=== PATIENT | male | born 1960 | race Caucasian/White ===

== ENCOUNTER → 2023-10-23 | Outpatient (CLI) | payer MEDICAID, OTHER, SELFPAY ==
[2023-10-23 13:02] LABS: Absolute Lymphocyte Count 2.35 X10^3/uL (0.83-4.51); Absolute Neutrophil Count 3.3 X10^3/uL (2.0-7.7); Basophil# 0.04 X10^3/uL; Basophil% 0.6 % (0-1); Eosinophil# 0.15 X10^3/uL; Eosinophils% 2.4 % (0-5); Hematocrit 42.8 % (40-54); Hemoglobin 14.6 g/dL (13.0-16.5); Lymphocyte # 2.35 X10^3/ul (0.83-4.51); Lymphocyte % 37.5 % (19-41); Mean Corp Hgb Conc 34.1 g/dL (32-36); Mean Corpuscular Hgb 30.2 pg (27.0-32.0); Mean Corpuscular Volume 88.4 fL (80-94); Mean Platelet Vol. 10.2 fl (6.2-12.0); Monocyte# 0.45 X10^3/uL; Monocyte% 7.2 % (0-10); NRBC Flagged by Analyzer 0 % (0-5); Neutrophil # 3.25 X10^3/uL (2.7-7.7); Platelet Count 221 K/mm3 (150-450); RBC Distribution Width CV 11.8 % (11.6-14.6); RBC Distribution Width SD 37.8 fl (35.1-43.9); Red Blood Count 4.84 M/mm3 (4.6-6.2); White Blood Count 6.3 K/mm3 (4.4-11.0)
[2023-10-23 13:24] LABS: Hemoglobin A1c 10.1 % (3.8-5.6)
[2023-10-23 13:44] LABS: ALB/GLOB Ratio 0.9 RATIO (0.9-2.4); AST(SGOT) 34 U/L (15-37); Alanine Aminotransfer ALT/SGPT 38 U/L (16-61); Albumin, Serum 3.6 g/dL (3.2-5.0); Alkaline Phosphatase 133 U/L (45-117); Anion Gap 5 (5-15); BUN 17 mg/dL (7-18); BUN/Creat Ratio 18.3 RATIO (10-20); Calcium,Total 9.1 mg/dL (8.5-10.1); Chloride 104 mmol/L (98-107); Cholesterol 150 mg/dL (200); Creatinine, Serum 0.93 mg/dL (0.70-1.30); EST Glomerular Filtration Rate 87 mL/min (>60); Est Glom Filt Rate - Afr Amer 105 mL/min (>60); Globulin 3.9 g/dL (2.2-4.2); Glucose 234 mg/dL (74-106); High Density Lipoprotein 31 mg/dL; PSA,Total - Annual Screen 0.98 ng/mL (0.00-4.00); Potassium 4.1 mmol/L (3.5-5.1); Protein, Total 7.5 g/dL (6.4-8.2); Sodium Level 136 mmol/L (136-145); Thyroid Stim Hormone (TSH) 1.52 uIU/mL (0.358-3.74); Triglycerides 263 mg/dL; Very Low Density Lipoprotein 53 mg/dL (5-40)
== END | disposition home or self-care (01) ==
LOC: LAB 12:38
PROVIDERS: PCP Nurse Practitioner Family; Referring Provider Nurse Practitioner Family; Visit Provider Nurse Practitioner Family
DX: I10 Essential (primary) hypertension (principal); E78.5 Hyperlipidemia, unspecified; E66.9 Obesity, unspecified; Z12.5 Encounter for screening for malignant neoplasm of prostate
CPT/HCPCS: 36415; 80053; 80061; 83036; 84153; 84443; 85025; G0103

== ENCOUNTER → 2024-02-26 | Outpatient (CLI) | payer BC, SELFPAY ==
[2024-02-26 13:06] LABS: Absolute Lymphocyte Count 2.21 X10^3/uL (0.83-4.51); Absolute Neutrophil Count 3.6 X10^3/uL (2.0-7.7); Basophil# 0.06 X10^3/uL; Basophil% 0.9 % (0-1); Eosinophil# 0.24 X10^3/uL; Eosinophils% 3.6 % (0-5); Hematocrit 42.2 % (40-54); Hemoglobin 14.5 g/dL (13.0-16.5); Lymphocyte # 2.21 X10^3/ul (0.83-4.51); Lymphocyte % 33.6 % (19-41); Mean Corp Hgb Conc 34.4 g/dL (32-36); Mean Corpuscular Hgb 30.4 pg (27.0-32.0); Mean Corpuscular Volume 88.5 fL (80-94); Mean Platelet Vol. 10.5 fl (6.2-12.0); Monocyte# 0.48 X10^3/uL; Monocyte% 7.3 % (0-10); NRBC Flagged by Analyzer 0 % (0-5); Neutrophil # 3.57 X10^3/uL (2.7-7.7); Neutrophil % 54.3 % (47-70); Platelet Count 251 K/mm3 (150-450); RBC Distribution Width CV 11.9 % (11.6-14.6); RBC Distribution Width SD 38.7 fl (35.1-43.9); Red Blood Count 4.77 M/mm3 (4.6-6.2); White Blood Count 6.6 K/mm3 (4.4-11.0)
[2024-02-26 14:42] LABS: ALB/GLOB Ratio 0.9 RATIO (0.9-2.4); AST(SGOT) 23 U/L (15-37); Alanine Aminotransfer ALT/SGPT 17 U/L (16-61); Albumin, Serum 3.5 g/dL (3.2-5.0); Alkaline Phosphatase 118 U/L (45-117); Anion Gap 8 (5-15); BUN 19 mg/dL (7-18); Calcium,Total 9.5 mg/dL (8.5-10.1); Chloride 103 mmol/L (98-107); Cholesterol 121 mg/dL (200); Creatinine, Serum 0.82 mg/dL (0.70-1.30); EST Glomerular Filtration Rate 100 mL/min (>60); Est Glom Filt Rate - Afr Amer 121 mL/min (>60); Globulin 3.7 g/dL (2.2-4.2); Glucose 120 mg/dL (74-106); High Density Lipoprotein 43 mg/dL; Potassium 4.3 mmol/L (3.5-5.1); Protein, Total 7.2 g/dL (6.4-8.2); Sodium Level 136 mmol/L (136-145); Triglycerides 96 mg/dL; Very Low Density Lipoprotein 19 mg/dL (5-40)
[2024-02-26 14:45] LABS: Microalbumin,Random Urine 8.6 mg/L (NO RANGE EST.)
== END | disposition home or self-care (01) ==
LOC: VSLAB 09:45
PROVIDERS: PCP Nurse Practitioner Family; Visit Provider Nurse Practitioner Family
DX: E11.9 Type 2 diabetes mellitus without complications (principal); E78.5 Hyperlipidemia, unspecified; I10 Essential (primary) hypertension
CPT/HCPCS: 36415; 80053; 80061; 82043; 84443; 85025

== ENCOUNTER → 2024-11-18 | Outpatient (CLI) | payer MEDICARE, SELFPAY ==
[2024-11-18 12:43] LABS: Absolute Lymphocyte Count 2.03 X10^3/uL (0.83-4.51); Absolute Neutrophil Count 2.8 X10^3/uL (2.0-7.7); Basophil# 0.03 X10^3/uL; Basophil% 0.6 % (0-1); Eosinophil# 0.12 X10^3/uL; Eosinophils% 2.2 % (0-5); Hematocrit 42.5 % (40-54); Hemoglobin 14.6 g/dL (13.0-16.5); Lymphocyte # 2.03 X10^3/ul (0.83-4.51); Lymphocyte % 37.5 % (19-41); Mean Corp Hgb Conc 34.4 g/dL (32-36); Mean Corpuscular Hgb 30.7 pg (27.0-32.0); Mean Corpuscular Volume 89.3 fL (80-94); Mean Platelet Vol. 10.1 fl (6.2-12.0); Monocyte# 0.42 X10^3/uL; Monocyte% 7.8 % (0-10); NRBC Flagged by Analyzer 0 % (0-5); Neutrophil # 2.79 X10^3/uL (2.7-7.7); Neutrophil % 51.5 % (47-70); Platelet Count 235 K/mm3 (150-450); RBC Distribution Width CV 11.8 % (11.6-14.6); Red Blood Count 4.76 M/mm3 (4.6-6.2); White Blood Count 5.4 K/mm3 (4.4-11.0)
[2024-11-18 13:06] LABS: Microalbumin,Random Urine 15.7 mg/L (NO RANGE EST.)
[2024-11-18 13:20] LABS: ALB/GLOB Ratio 1.3 RATIO (0.9-2.4); AST(SGOT) 32 U/L (<=37); Alanine Aminotransfer ALT/SGPT 19 U/L (<=46); Albumin, Serum 4.2 g/dL (3.4-4.8); Alkaline Phosphatase 118 U/L (40-129); Anion Gap 11 (5-15); BUN 19 mg/dL (4-19); BUN/Creat Ratio 24.4 RATIO (10-20); Calcium,Total 9.3 mg/dL (7.6-11.0); Carbon Dioxide 20.9 mmol/L (21.0-32.0); Chloride 106 mmol/L (98-108); Cholesterol 169 mg/dL (<=200); Creatinine, Serum 0.78 mg/dL (0.70-1.20); EST Glomerular Filtration Rate 99 (>60); Globulin 3.2 g/dL (2.2-4.2); Glucose 152 mg/dL (70-99); High Density Lipoprotein 35 mg/dL; Low Density Lipoprotein Calc. 101 mg/dL; PSA,Total - Annual Screen 1.28 ng/mL (0.02-4.00); Potassium 4.5 mmol/L (3.3-5.1); Protein, Total 7.4 g/dL (5.9-8.4); Sodium Level 138 mmol/L (133-145); Triglycerides 166 mg/dL; Very Low Density Lipoprotein 33 mg/dL (5-40); cholesterol:hdl ratio screen 4.79
== END | disposition home or self-care (01) ==
LOC: VSLAB 10:02
PROVIDERS: PCP Nurse Practitioner Family; Visit Provider Nurse Practitioner Family
DX: E11.9 Type 2 diabetes mellitus without complications (principal); E78.5 Hyperlipidemia, unspecified; Z12.5 Encounter for screening for malignant neoplasm of prostate
CPT/HCPCS: 36415; 80053; 80061; 82043; 84153; 85025; G0103

== ENCOUNTER 2025-01-09 06:13 | Day surgery (SDC) | payer MEDICARE, SELFPAY ==
[2025-01-09] VITALS (7 sets, daily range): BP systolic 108–155; BP diastolic 65–73; PULSE 59–70; RESP 16; TEMP 36.6–37; O2SAT 92–98; BMI 35.8
--- OUTSIDE RECORDS SUMMARY | 2025-01-09 06:18 | XMS RPT_ITS | CCD ---
Author Organization [facility] Care Team Providers Care Newspaper Delivery Counselor Name Role Phone Sheets Helen MCKEE Primary Care Provider [phone] [employer], Susana Primary Care Provider [phone] [employer]harathi [employer], Susana Attending Provider Bharathi VSC, Susana Primary Care Unavailabl Dee Borrero Attending Unavailable Bharathi VSC, Susana Primary Care Unavailabl e Bharathi VSC, Susana Attending Unavailabl e Bharathi VSC, Susana Attending Unavailabl e Bharathi VSC, Susana Primary Care Unavailabl e Bharathi VSC, Susana Primary Care Unavailabl e Alex Delarosa Attending Unavailable Allergies Allergy Classification Reported Allergen(s) Allergy Type Date of Onset Reaction(s) Facility (8 sources) Penicillin Drug Allergy 2 Other: See Comments [facility] (1 source) Penicillins Drug allergy (disorder) 5 [facility] Repository Medications Completed/Discontinued Medications Medication Drug Class(es) Dates Sig (Normalized) Sig (Original) atorvastatin 10 mg oral tablet (15 sources) HMG-CoA Reductase Inhibitor Start: 09-21-2021 End: 10-08-2023 take 1 tablet by mouth once daily atorvastatin (LIPITOR) 10 mg tablet take 1 tablet by mouth once daily 30 tablet 0 10/08/2023 Active Comment on above: Take 1 tablet by mechelle th once daily. TAKE 1 TABLET BY MECHELLE TH ONCE DAILY lisinopril 10 mg oral tablet (17 sources) Angiotensin Converting Enzyme Inhibitor Start: 09-02-2021 End: 10-08-2023 take 1 tablet by mouth once daily lisinopril (ZESTRIL) 10 mg tablet Indications: Essential hypertension take 1 tablet by mouth once daily 30 tablet 0 10/08/2023 Active Comment on above: TAKE 1 TABLET BY MECHELLE TH ONCE DAILY Take 1 tablet by mechelle th once daily. LOW-DOSE ASPIRIN ORAL (11 sources) LOW-DOSE ASPIRIN ORAL Take by mouth. 0 Active Comment on above: Take by mouth. tamsulosin hydrochloride 0.4 mg oral capsule (4 sources) alpha-Adrenergic Herlinda Start: 04-14-2021 End: 10-13-2021 take 1 capsule by mouth once daily at bedtime tamsulosin (FLOMAX) 0.4 mg Indications: Urinary frequency Take 1 capsule by mouth daily at bedtime. 30 capsule 0 04/14/2021 10/13/2021 Discontinued Comment on above: Take 1 capsule by mo uth daily at bedtime. Problems Problem Classification Problem Date Documented Da te Episodic/Chronic Diabetes mellitus without complication (1 source) Type 2 diabetes mellitus without complications; Translations: [Type 2 diabetes mellitus without complications] Onset: 11-25-2024 Chronic Disorders of lipid metabolism (1 source) Mixed hyperlipidemia; Translations: [Mixed hyperlipidemia] Chronic Essential hypertension (7 sources) Essential hypertension; Translations: [Essential (primary) hypertension] Chronic Other nutritional; endocrine; and metabolic disorders (12 sources) Obese class II; Translations: [Obesity, unspecified] Onset: 03-02-2020 03-02-2020 Chronic Other nutritional; endocrine; and metabolic disorders (1 source) Body mass index 30+ - obesity; Translations: [Body mass index (BMI) 38.0-38.9, adult] Chronic Results Test Name Value Interpretation Reference Range Facility Absolute lymphocyte countOrd ered By: [facility] Susana Garvin on 11-18-2024 Lymphocytes Auto (Unsp spec) [#/Vol] 2.03 10*3/uL 0.83-4.51 [facility] Absolute neutrophil countOrd ered By: [facility] Susana Garvin on 11-18-2024 Neutrophils (Bld) [#/Vol] 2.8 10*3/uL 2.0-7.7 [facility] Anion gap in Serum or Plasma Ordered By: [facility] Susana Garvin on 11-18-2024 Anion gap [Moles/Vol] 11 mmol/L 5-15 [facility] Automated lymphocyte count a s percentage of total leukocytesOrdered By: [facility] Susana Garvin on 11-18-2024 Lymphocytes/100 WBC Auto (Unsp spec) 37.5 % 19-41 [facility] BUN/creatinine ratioOrdered By: [facility] Susana Garvin on 11-18-2024 Urea nitrogen/Creatinine [Mass ratio] 24.4 mg/mg High 10- [facility] Basophil percentageOrdered B y: [facility] Susana Garvin on 11-18-2024 Basophils/100 WBC (Bld) 0.6 % 0-[address] [facility] Bilirubin, totalOrdered By: [facility] Susana Garvin on 11-18-2024 Bilirubin [Mass/Vol] 0.30 mg/dL 0.00-1.30 [facility] CBC W/Diff, Automatedon 10-31-2024 Absolute Lymph 2.03 X10 3/uL Normal 0.83-4.51 [facility] Comment on above: Performed By: #### L 500.4050, L501.9910, L500.4100, L100.0100, L502.0500 #### [facility] [address] [place], [address] Absolute Neut 2.8 X10 3/uL Normal 2.0-7.7 [facility] Comment on above: Performed By: #### L 500.4050, L501.9910, L500.4100, L100.0100, L502.0500 #### [facility] [address] [place], [address] Basophils/100 WBC (Bld) 0.6 % Normal 0-[address] [facility] Comment on above: Performed By: #### L 500.4050, L501.9910, L500.4100, L100.0100, L502.0500 #### [facility] [address] [place], [address] Eosinophils/100 WBC (Bld) 2.2 % Normal 0-5 [facility] Comment on above: Performed By: #### L 500.4050, L501.9910, L500.4100, L100.0100, L502.0500 #### [facility] [address] [place], [address] Erythrocyte distribution width (RBC) [Ratio] 11.8 % Normal 11.6-14.6 [facility] Comment on above: Performed By: #### L 500.4050, L501.9910, L500.4100, L100.0100, L502.0500 #### [facility] [address] [place], [address] Hematocrit (Bld) [Volume fraction] 42.5 % Normal 40-54 [facility] Comment on above: Performed By: #### L 500.4050, L501.9910, L500.4100, L100.0100, L502.0500 #### [facility] [address] [place], [address] Hemoglobin (Bld) [Mass/Vol] 14.6 g/dL Normal 13.0-16.5 [facility] Comment on above: Performed By: #### L 500.4050, L501.9910, L500.4100, L100.0100, L502.0500 #### [facility] [address] [place], [address] IG% 0.400 Normal 0.0-0.9 [facility] Comment on above: Result Comment: IG% - Immature Granulocytes (promyelocytes, myelocytes and metamyelocytes) > 1% indicates that a LEFT SHIFT is Present. Performed By: #### L 500.4050, L501.9910, L500.4100, L100.0100, L502.0500 #### [facility] [address] [place], [address] Lymphocytes/100 WBC (Bld) 37.5 % Normal 19-41 [facility] Comment on above: Performed By: #### L 500.4050, L501.9910, L500.4100, L100.0100, L502.0500 #### [facility] [address] [place], [address] MCH (RBC) [Entitic mass] 30.7 pg Normal 27.0-32.0 [facility] Comment on above: Performed By: #### L 500.4050, L501.9910, L500.4100, L100.0100, L502.0500 #### [facility] [address] [place], [address] MCHC (RBC) [Mass/Vol] 34.4 g/dL Normal 32-36 [facility] Comment on above: Performed By: #### L 500.4050, L501.9910, L500.4100, L100.0100, L502.0500 #### [facility] [address] [place], [address] MCV (RBC) [Entitic vol] 89.3 fL Normal 80-94 [facility] Comment on above: Performed By: #### L 500.4050, L501.9910, L500.4100, L100.0100, L502.0500 #### [facility] [address] [place], [address] Monocytes/100 WBC (Bld) 7.8 % Normal 0-10 [facility] Comment on above: Performed By: #### L 500.4050, L501.9910, L500.4100, L100.0100, L502.0500 #### [facility] [address] [place], [address] Neutrophils/100 WBC (Bld) 51.5 % Normal 47-70 [facility] Comment on above: Performed By: #### L 500.4050, L501.9910, L500.4100, L100.0100, L502.0500 #### [facility] [address] [place], [address] Nucleated RBC (Bld) [#/Vol] 0 10*3/uL Normal 0-5 [facility] Comment on above: Performed By: #### L 500.4050, L501.9910, L500.4100, L100.0100, L502.0500 #### [facility] [address] [place], [address] Platelet mean volume (Bld) [Entitic vol] 10.1 fL Normal 6.2-12.0 [facility] Comment on above: Performed By: #### L 500.4050, L501.9910, L500.4100, L100.0100, L502.0500 #### [facility] [address] [place], [address] Platelets (Bld) [#/Vol] 235 10*3/uL Normal 150-450 [facility] Comment on above: Performed By: #### L 500.4050, L501.9910, L500.4100, L100.0100, L502.0500 #### [facility] [address] [place], [address] RBC (Bld) [#/Vol] 4.76 10*6/uL Normal 4.6-6.2 [facility] Comment on above: Performed By: #### L 500.4050, L501.9910, L500.4100, L100.0100, L502.0500 #### [facility] [address] [place], [address] RDW SD 38.0 fl Normal 35.1-43.9 [facility] Comment on above: Performed By: #### L 500.4050, L501.9910, L500.4100, L100.0100, L502.0500 #### [facility] [address] [place], [address] WBC (Bld) [#/Vol] 5.4 10*3/uL Normal 4.4-11.0 [facility] Comment on above: Performed By: #### L 500.4050, L501.9910, L500.4100, L100.0100, L502.0500 #### [facility] [address] [place], [address] Calculated very low density lipoprotein (VLDL) cholesterol measurementOrdered By: [facility] Susana Garvin on 11-18-2024 Calculated very low density lipoprotein (VLDL) cholesterol measurement 33 mg/dL 5-40 [facility] Carbon dioxide, total [Moles /volume] in Central venous bloodOrdered By: [facility] Susana Garvin on 11-18-2024 CO2 [Moles/Vol] 20.9 mmol/L Low 21.0-32.0 [facility] Chloride assayOrdered By: [facility] Susana Garvin on 11-18-2024 Chloride [Moles/Vol] 106 mmol/L 98-108 [facility] Comprehensive Metabolic Prof ilon 11-18-2024 Albumin [Mass/Vol] 4.2 g/dL Normal 3.4-4.8 [facility] Comment on above: Performed By: #### L 500.4050, L501.9910, L500.4100, L100.0100, L502.0500 #### [facility] [address] [place], [address] Albumin/Globulin [Mass ratio] 1.3 {ratio} Normal 0.9-2.4 [facility] Comment on above: Performed By: #### L 500.4050, L501.9910, L500.4100, L100.0100, L502.0500 #### [facility] [address] [place], [address] ALK PHOS 118 U/L Normal 40-129 [facility] Comment on above: Performed By: #### L 500.4050, L501.9910, L500.4100, L100.0100, L502.0500 #### [facility] [address] [place], [address] ALT [Catalytic activity/Vol] 19 U/L Normal <=46 [facility] Comment on above: Performed By: #### L 500.4050, L501.9910, L500.4100, L100.0100, L502.0500 #### [facility] [address] [place], [address] AST [Catalytic activity/Vol] 32 U/L Normal <=37 [facility] Comment on above: Performed By: #### L 500.4050, L501.9910, L500.4100, L100.0100, L502.0500 #### [facility] [address] [place], [address] Bilirubin [Mass/Vol] 0.30 mg/dL Normal 0.00-1.30 [facility] Comment on above: Performed By: #### L 500.4050, L501.9910, L500.4100, L100.0100, L502.0500 #### [facility] [address] [place], [address] BUN/CRE 24.4 RATIO High 10-20 [facility] Comment on above: Performed By: #### L 500.4050, L501.9910, L500.4100, L100.0100, L502.0500 #### [facility] [address] [place], [address] Calcium [Mass/Vol] 9.3 mg/dL Normal 7.6-11.0 [facility] Comment on above: Performed By: #### L 500.4050, L501.9910, L500.4100, L100.0100, L502.0500 #### [facility] [address] [place], [address] Chloride [Moles/Vol] 106 mmol/L Normal 98-108 [facility] Comment on above: Performed By: #### L 500.4050, L501.9910, L500.4100, L100.0100, L502.0500 #### [facility] [address] [place], [address] CO2 [Moles/Vol] 20.9 mmol/L Low 21.0-32.0 [facility] Comment on above: Performed By: #### L 500.4050, L501.9910, L500.4100, L100.0100, L502.0500 #### [facility] [address] [place], [address] Creatinine [Mass/Vol] 0.78 mg/dL Normal 0.70-1.20 [facility] Comment on above: Performed By: #### L 500.4050, L501.9910, L500.4100, L100.0100, L502.0500 #### [facility] [address] [place], [address] GAP 11 Normal 5-15 [facility] Comment on above: Performed By: #### L 500.4050, L501.9910, L500.4100, L100.0100, L502.0500 #### [facility] [address] [place], [address] GFR/1.73 sq M.predicted among non-blacks MDRD (S/P/Bld) [Vol rate/Area] 99 mL/min/{1.73_m2} Normal >60 [facility] Comment on above: Result Comment: mL/m in/1.73m2 CKD-EPI Creatinine Equation (2020) Performed By: #### L 500.4050, L501.9910, L500.4100, L100.0100, L502.0500 #### [facility] [address] [place], [address] Globulin (S) [Mass/Vol] 3.2 g/dL Normal 2.2-4.2 [facility] Comment on above: Performed By: #### L 500.4050, L501.9910, L500.4100, L100.0100, L502.0500 #### [facility] [address] [place], [address] Glucose [Mass/Vol] 152 mg/dL High 70-99 [facility] Comment on above: Performed By: #### L 500.4050, L501.9910, L500.4100, L100.0100, L502.0500 #### [facility] [address] [place], [address] Potassium [Moles/Vol] 4.5 mmol/L Normal 3.3-5.1 [facility] Comment on above: Performed By: #### L 500.4050, L501.9910, L500.4100, L100.0100, L502.0500 #### [facility] [address] [place], [address] Sodium [Moles/Vol] 138 mmol/L Normal 133-145 [facility] Comment on above: Performed By: #### L 500.4050, L501.9910, L500.4100, L100.0100, L502.0500 #### [facility] [address] [place], [address] T PROT 7.4 g/dL Normal 5.9-8.4 [facility] Comment on above: Performed By: #### L 500.4050, L501.9910, L500.4100, L100.0100, L502.0500 #### [facility] [address] [place], [address] Urea nitrogen [Mass/Vol] 19 mg/dL Normal 4-19 [facility] Comment on above: Performed By: #### L 500.4050, L501.9910, L500.4100, L100.0100, L502.0500 #### [facility] [address] [place], [address] Eosinophil percentageOrdered By: [facility] Garvin on 11-18-2024 Eosinophils/100 WBC (Bld) 2.2 % 0-5 [facility] Erythrocyte distribution wid th ratioOrdered By: [facility] Bharathi on 11-18-2024 Erythrocyte distribution width (RBC) [Ratio] 11.8 % 11.6-14.6 [facility] Erythrocyte distribution wid th standard deviationOrdered By: [facility] Bharathi on 11-18-2024 Erythrocyte distribution width (RBC) [Ratio] 38.0 fl 35.1-43.9 [facility] Glomerular filtration rate ( GFR) estimation/1.73 sq m using serum, plasma, or whole bOrdered By: [facility]ana[facility] Garvin on 11-18-2024 GFR/1.73 sq M.predicted among non-blacks MDRD (S/P/Bld) [Vol rate/Area] 99 mL/min/{1.73_m2} >60 [facility] Comment on above: mL/min/1.73m2 CKD-EP I Creatinine Equation (2020) Hematocrit Auto (Bld) [Volum e fraction]Ordered By: [facility] Bharathi on 11-18-2024 Hematocrit (Bld) [Volume fraction] 42.5 % 40-54 [facility] Hemoglobin measurementOrdere d By: [facility]ana[facility] Garvin on 11-18-2024 Hemoglobin (Bld) [Mass/Vol] 14.6 g/dL 13.0-16.5 [facility] Immature granulocytes/100 WB C Auto (Bld)Ordered By: [facility]ana[facility] Garvin on 11-18-2024 Immature granulocytes/100 WBC (Bld) 0.400 % 0.0-0.9 [facility] Comment on above: IG% - Immature Granu locytes (promyelocytes, myelocytes and metamyelocytes) > 1% indicates that a LEFT SHIFT is Present. LDL calc ser/plasOrdered By: [facility] Services[facility]ana[facility]elmo Garvin on 11-18-2024 Cholesterol in LDL [Mass/Vol] 101 mg/dL [facility] Comment on above: Mgigpbldpx=481-994 m g/dL & Higher Atpm=018 mg/dL or greater Laboratory - Chemistry and C hemistry - challengeOrdered By: [facility] Susana Bharathi on 11-18-2024 AST [Catalytic activity/Vol] 32 U/L <38 [facility] Lipid Profileon 11-18-2024 CHOL:HDL 4.79 Normal [facility] Comment on above: Performed By: #### L 500.4050, L501.9910, L500.4100, L100.0100, L502.0500 #### [facility] [address] [place], [address] Cholesterol [Mass/Vol] 169 mg/dL Normal <=200 [facility] Comment on above: Result Comment: Chol esterol level, Desirable <200 mg/dL Borderline high cholesterol 200-239 mg/dL High cholesterol >=240 mg/dL Recommendations of the NCEP Adult Treatment Panel for the following risk-cutoff thresholds for the [place] population. Performed By: #### L 500.4050, L501.9910, L500.4100, L100.0100, L502.0500 #### [facility] [address] [place], [address] Cholesterol in HDL [Mass/Vol] 35 mg/dL Low [facility] Comment on above: Result Comment: Jasmyne onal Cholesterol Education Program (NCEP) guidelines: <40 mg/dL: Low HDL-cholesterol (major risk factor for CHD) >= 60 mg/dL: High HDL-cholesterol (negative risk factor for CHD) HDL-cholesterol is affected by a number of factors, e.g. smoking, exercise, hormones, sex and age. Performed By: #### L 500.4050, L501.9910, L500.4100, L100.0100, L502.0500 #### [facility] [address] [place], [address] Cholesterol in LDL [Mass/Vol] 101 mg/dL Normal [facility] Comment on above: Result Comment: Bord pbzmgn=338-691 mg/dL Higher Yeic=189 mg/dL or greater Performed By: #### L 500.4050, L501.9910, L500.4100, L100.0100, L502.0500 #### [facility] [address] [place], [place], [id number] Cholesterol in VLDL [Mass/Vol] 33 mg/dL Normal 5-40 [facility] Comment on above: Performed By: #### L 500.4050, L501.9910, L500.4100, L100.0100, L502.0500 #### [facility] [address] [place], [address] Triglyceride [Mass/Vol] 166 mg/dL Normal [facility] Comment on above: Result Comment: The drugs N-Acetylcysteine and Metamizole may falsely depress this assay. Normal range: <150 mg/dL Borderline High: 150-199 mg/dL High: 200-499 mg/dL Very High: >500 mg/dL Performed By: #### L 500.4050, L501.9910, L500.4100, L100.0100, L502.0500 #### [facility] [address] [place], [address] MCV (mean corpuscular volume ) determinationOrdered By: [facility] Susana Garvin on 11-18-2024 MCV (RBC) [Entitic vol] 89.3 fL 80-94 [facility] Mean corpuscular hemoglobin (MCH) determinationOrdered By: [facility] Susana Garvin on 11-18-2024 MCH (RBC) [Entitic mass] 30.7 pg 27.0-32.0 [facility] Mean corpuscular hemoglobin concentration (MCHC) determinationOrdered By: [facility] Susana Garvin on 11-18-2024 MCHC (RBC) [Mass/Vol] 34.4 g/dL 32-36 [facility] Mean platelet volume determi nationOrdered By: [facility] Susana Garvin on 11-18-2024 Platelet mean volume (Bld) [Entitic vol] 10.1 fL 6.2-12.0 [facility] Microalbumin,Random Urineon 11-18-2024 MICROALBUMIN,UR 15.7 mg/L Normal NO RANGE EST. [facility] Comment on above: Performed By: #### L 500.4050, L501.9910, L500.4100, L100.0100, L502.0500 #### [facility] [address] [place], [place], [id number] Monocyte percentageOrdered B y: [facility] Susana Garvin on 11-18-2024 Monocytes/100 WBC (Bld) 7.8 % 0-[address] [facility] Neutrophil percentageOrdered By: [facility] Susana Garvin on 11-18-2024 Neutrophils/100 WBC (Bld) 51.5 % 47-70 [facility] Nucleated red blood cell per centageOrdered By: [facility] Susana Garvin on 11-18-2024 Nucleated RBC/100 WBC (Bld) [Ratio] 0 % 0-5 [facility] PSA,Total - Annual Screenon 11-18-2024 PSA,TOT SCREEN 1.28 ng/mL Normal 0.02-4.00 [facility] Comment on above: Result Comment: This test was performed using the [employer] tPSA method. Measured values of a patient??sample can vary depending on the testing procedure used. PSA values determined on patient samples by different testing procedures cannot be used interchangeably. If there is a change in PSA assays while monitoring therapy, sequential testing should be performed to confirm baseline values. Performed By: #### L 500.4050, L501.9910, L500.4100, L100.0100, L502.0500 #### [facility] [address] [place], [place], [id number] Platelet countOrdered By: JAY Garvin on 11-18-2024 Platelets (Bld) [#/Vol] 235 10*3/uL 150-450 [facility] Potassium measurement (mass/ volume)Ordered By: [facility] Susana Garvin on 11-18-2024 Potassium (Unsp spec) [Mass/Vol] 4.5 mmol/L 3.3-5.1 [facility] RBC Auto (Bld) [#/Vol]Ordere d By: [facility] Susana Garvin on 11-18-2024 RBC (Bld) [#/Vol] 4.76 10*6/uL 4.6-6.2 [facility] Screening total cholesterol/ high density lipoprotein (HDL) cholesterol ratioOrdered By: [facility] Susana Garvin on 11-18-2024 Cholesterol.total/Choles terol in HDL [Mass ratio] 4.79 {ratio} [facility] Serum creatinine measurement (mass/volume)Ordered By: [facility] Susana Garvin on 11-18-2024 Creatinine [Mass/Vol] 0.78 mg/dL 0.70-1.20 [facility] Serum globulin measurementOr dered By: [facility] Susana Garvin on 11-18-2024 Globulin (S) [Mass/Vol] 3.2 g/dL 2.2-4.[address] [facility] Serum glucose measurement (m ass/volume)Ordered By: [facility] Susana Garvin on 11-18-2024 Glucose [Mass/Vol] 152 mg/dL High 70-99 [facility] Serum or plasma alanine schneider otransferase (ALT) measurementOrdered By: [facility] Susana Garvin on 11-18-2024 ALT [Catalytic activity/Vol] 19 U/L <47 [facility] Serum or plasma albumin ruthie urement (mass/volume)Ordered By: [facility] Susana Garvin on 11-18-2024 Albumin [Mass/Vol] 4.2 g/dL 3.4-4.8 [facility] Serum or plasma albumin/glob ulin mass ratioOrdered By: [facility] Susana Garvin on 11-18-2024 Albumin/Globulin [Mass ratio] 1.3 {ratio} 0.9-2.4 [facility] Serum or plasma alkaline britni sphatase measurementOrdered By: [facility] Susana Garvin on 11-18-2024 ALP [Catalytic activity/Vol] 118 U/L 40-129 [facility] Serum or plasma calcium ruthie urement (mass/volume)Ordered By: [facility] Susana Garvin on 11-18-2024 Calcium [Mass/Vol] 9.3 mg/dL 7.6-11.0 [facility] Serum or plasma cholesterol in HDL measurement (mass/volume)Ordered By: [facility] Susana Garvin on 05-20-2025 Cholesterol in HDL [Mass/Vol] 35 mg/dL Low >40 [facility] Comment on above: National Cholesterol Education Program (NCEP) guidelines:<40 mg/dL: Low HDL-cholesterol (major risk factor for CHD)>= 60 mg/dL: High HDL-cholesterol (negative risk factor for CHD)HDL-cholesterol is affected by a number of factors, e.g. smoking, exercise, hormones, sex and age. Serum or plasma cholesterol measurement (mass/volume)Ordered By: [facility] Susana Garvin on 11-18-2024 Cholesterol [Mass/Vol] 169 mg/dL <201 [facility] Comment on above: Cholesterol level, D esirable <200 mg/dLBorderline high cholesterol 200-239 mg/dLHigh cholesterol >=240 mg/dLRecommendations of the NCEP Adult Treatment Panel for the following risk-cutoff thresholds for the [place] population. Serum or plasma urea nitroge n measurement (mass/volume)Ordered By: [facility] Susana Garvin on 11-18-2024 Urea nitrogen [Mass/Vol] 19 mg/dL 4-19 [facility] Sodium levelOrdered By: [facility] Susana Garvin on 11-18-2024 Sodium [Moles/Vol] 138 mmol/L 133-145 [facility] Total proteinOrdered By: [facility] Susana Garvin on 11-18-2024 Protein [Mass/Vol] 7.4 g/dL 5.9-8.4 [facility] Triglycerides measurementOrd ered By: [facility] Susana Garvin on 11-18-2024 Triglyceride [Mass/Vol] 166 mg/dL <[address] [facility] Comment on above: The drugs N-Acetylcy steine and Metamizole may falsely depress this assay. Normal range: <150 mg/dLBorderline High: 150-199 mg/dLHigh: 200-499 mg/dLVery High: >500 mg/dL Urine albumin measurement wi detection limit of 20 mg/L or less (mass/volume)Ordered By: DINORAH Garvin on 11-18-2024 Albumin DL <= 20 mg/L (U) [Mass/Vol] 15.7 mg/L NO RANGE EST. [facility] White blood cell (WBC) count Ordered By: [facility] Susana Garvin on 11-18-2024 WBC (Bld) [#/Vol] 5.4 10*3/uL 4.4-11.0 [facility] CBC W/Diff, Automatedon 08-2 Absolute Lymph 2.21 X10 3/uL Normal 0.83-4.51 [facility] Comment on above: Performed By: #### L 502.0500, L500.4100, L500.4050, L501.9520, L100.0100 #### [facility] [address] [place], [address] Absolute Neut 3.6 X10 3/uL Normal 2.0-7.7 [facility] Comment on above: Performed By: #### L 502.0500, L500.4100, L500.4050, L501.9520, L100.0100 #### [facility] [address] [place], [address] Basophils/100 WBC (Bld) 0.9 % Normal 0-[address] [facility] Comment on above: Performed By: #### L 502.0500, L500.4100, L500.4050, L501.9520, L100.0100 #### [facility] [address] [place], [address] Eosinophils/100 WBC (Bld) 3.6 % Normal 0-5 [facility] Comment on above: Performed By: #### L 502.0500, L500.4100, L500.4050, L501.9520, L100.0100 #### [facility] [address] [place], [address] Erythrocyte distribution width (RBC) [Ratio] 11.9 % Normal 11.6-14.6 [facility] Comment on above: Performed By: #### L 502.0500, L500.4100, L500.4050, L501.9520, L100.0100 #### [facility] [address] [place], [address] Hematocrit (Bld) [Volume fraction] 42.2 % Normal 40-54 [facility] Comment on above: Performed By: #### L 502.0500, L500.4100, L500.4050, L501.9520, L100.0100 #### [facility] [address] [place], [address] Hemoglobin (Bld) [Mass/Vol] 14.5 g/dL Normal 13.0-16.5 [facility] Comment on above: Performed By: #### L 502.0500, L500.4100, L500.4050, L501.9520, L100.0100 #### [facility] [address] [place], [address] IG% 0.300 Normal 0.0-0.9 [facility] Comment on above: Result Comment: IG% - Immature Granulocytes (promyelocytes, myelocytes and metamyelocytes) > 1% indicates that a LEFT SHIFT is Present. Performed By: #### L 502.0500, L500.4100, L500.4050, L501.9520, L100.0100 #### [facility] [address] [place], [address] Lymphocytes/100 WBC (Bld) 33.6 % Normal 19-41 [facility] Comment on above: Performed By: #### L 502.0500, L500.4100, L500.4050, L501.9520, L100.0100 #### [facility] [address] [place], [address] MCH (RBC) [Entitic mass] 30.4 pg Normal 27.0-32.0 [facility] Comment on above: Performed By: #### L 502.0500, L500.4100, L500.4050, L501.9520, L100.0100 #### [facility] [address] [place], [address] MCHC (RBC) [Mass/Vol] 34.4 g/dL Normal 32-36 [facility] Comment on above: Performed By: #### L 502.0500, L500.4100, L500.4050, L501.9520, L100.0100 #### [facility] [address] [place], [address] MCV (RBC) [Entitic vol] 88.5 fL Normal 80-[address] [facility] Comment on above: Performed By: #### L 502.0500, L500.4100, L500.4050, L501.9520, L100.0100 #### [facility] [address] [place], [address] Monocytes/100 WBC (Bld) 7.3 % Normal 0-[address] [facility] Comment on above: Performed By: #### L 502.0500, L500.4100, L500.4050, L501.9520, L100.0100 #### [facility] [address] [place], [address] Neutrophils/100 WBC (Bld) 54.3 % Normal 47-70 [facility] Comment on above: Performed By: #### L 502.0500, L500.4100, L500.4050, L501.9520, L100.0100 #### [facility] [address] [place], [address] Nucleated RBC (Bld) [#/Vol] 0 10*3/uL Normal 0-5 [facility] Comment on above: Performed By: #### L 502.0500, L500.4100, L500.4050, L501.9520, L100.0100 #### [facility] [address] [place], [address] Platelet mean volume (Bld) [Entitic vol] 10.5 fL Normal 6.2-12.0 [facility] Comment on above: Performed By: #### L 502.0500, L500.4100, L500.4050, L501.9520, L100.0100 #### [facility] [address] [place], [address] Platelets (Bld) [#/Vol] 251 10*3/uL Normal 150-450 [facility] Comment on above: Performed By: #### L 502.0500, L500.4100, L500.4050, L501.9520, L100.0100 #### [facility] [address] [place], [address] RBC (Bld) [#/Vol] 4.77 10*6/uL Normal 4.6-6.2 [facility] Comment on above: Performed By: #### L 502.0500, L500.4100, L500.4050, L501.9520, L100.0100 #### [facility] [address] [place], [address] RDW SD 38.7 fl Normal 35.1-43.9 [facility] Comment on above: Performed By: #### L 502.0500, L500.4100, L500.4050, L501.9520, L100.0100 #### [facility] [address] [place], [address] WBC (Bld) [#/Vol] 6.6 10*3/uL Normal 4.4-11.0 [facility] Comment on above: Performed By: #### L 502.0500, L500.4100, L500.4050, L501.9520, L100.0100 #### [facility] [address] [place], [address] Comprehensive Metabolic Prof [facility] 02-26-2024 Albumin [Mass/Vol] 3.5 g/dL Normal 3.2-5.0 [facility] Comment on above: Performed By: #### L 502.0500, L500.4100, L500.4050, L501.9520, L100.0100 #### [facility] [address] [place], [address] Albumin/Globulin [Mass ratio] 0.9 {ratio} Normal 0.9-2.4 [facility] Comment on above: Performed By: #### L 502.0500, L500.4100, L500.4050, L501.9520, L100.0100 #### [facility] [address] [place], [address] ALK P 118 U/L High 45-117 [facility] Comment on above: Performed By: #### L 502.0500, L500.4100, L500.4050, L501.9520, L100.0100 #### [facility] [address] [place], [address] ALT [Catalytic activity/Vol] 17 U/L Normal 16-61 [facility] Comment on above: Performed By: #### L 502.0500, L500.4100, L500.4050, L501.9520, L100.0100 #### [facility] [address] [place], [address] AST [Catalytic activity/Vol] 23 U/L Normal 15-37 [facility] Comment on above: Performed By: #### L 502.0500, L500.4100, L500.4050, L501.9520, L100.0100 #### [facility] [address] [place], [address] Bilirubin [Mass/Vol] 0.40 mg/dL Normal 0.20-1.00 [facility] Comment on above: Result Comment: For patients on eltrombopag therapy, use of Dim[place] TBIL is not recommended. Performed By: #### L 502.0500, L500.4100, L500.4050, L501.9520, L100.0100 #### [facility] [address] [place], [address] BUN/CRE 23.0 RATIO High 10-20 [facility] Comment on above: Performed By: #### L 502.0500, L500.4100, L500.4050, L501.9520, L100.0100 #### [facility] [address] [place], [address] CA,Total 9.5 mg/dL Normal 8.5-10.1 [facility] Comment on above: Performed By: #### L 502.0500, L500.4100, L500.4050, L501.9520, L100.0100 #### [facility] [address] [place], [address] Chloride [Moles/Vol] 103 mmol/L Normal 98-107 [facility] Comment on above: Performed By: #### L 502.0500, L500.4100, L500.4050, L501.9520, L100.0100 #### [facility] [address] [place], [address] CO2 [Moles/Vol] 25.0 mmol/L Normal 21.0-32.0 [facility] Comment on above: Performed By: #### L 502.0500, L500.4100, L500.4050, L501.9520, L100.0100 #### [facility] [address] [place], [address] Creatinine [Mass/Vol] 0.82 mg/dL Normal 0.70-1.30 [facility] Comment on above: Result Comment: The validity of the calculated GFR GFRAA in patients over 70 years has not been determined. Clinical correlation is essential. Performed By: #### L 502.0500, L500.4100, L500.4050, L501.9520, L100.0100 #### [facility] [address] [place], [address] EST GFR - AA 121 mL/min Normal >60 [facility] Comment on above: Result Comment: Afri can [place] GFR Calc Performed By: #### L 502.0500, L500.4100, L500.4050, L501.9520, L100.0100 #### [facility] [address] [place], [address] GAP 8 Normal 5-15 [facility] Comment on above: Performed By: #### L 502.0500, L500.4100, L500.4050, L501.9520, L100.0100 #### [facility] [address] [place], [address] GFR/1.73 sq M.predicted among non-blacks MDRD (S/P/Bld) [Vol rate/Area] 100 mL/min/{1.73_m2} Normal >60 [facility] Comment on above: Result Comment: Non- GFR Calc Performed By: #### L 502.0500, L500.4100, L500.4050, L501.9520, L100.0100 #### [facility] [address] [place], [address] Globulin (S) [Mass/Vol] 3.7 g/dL Normal 2.2-4.2 [facility] Comment on above: Performed By: #### L 502.0500, L500.4100, L500.4050, L501.9520, L100.0100 #### [facility] [address] [place], [address] Glucose [Mass/Vol] 120 mg/dL High 74-106 [facility] Comment on above: Result Comment: Fast ing Glucose result from 100 to 125 mg/dL suggests IMPAIRED HOMEOSTASIS per A.D.A. criteria. Performed By: #### L 502.0500, L500.4100, L500.4050, L501.9520, L100.0100 #### [facility] [address] [place], [address] Potassium [Moles/Vol] 4.3 mmol/L Normal 3.5-5.1 [facility] Comment on above: Performed By: #### L 502.0500, L500.4100, L500.4050, L501.9520, L100.0100 #### [facility] [address] [place], [address] Sodium [Moles/Vol] 136 mmol/L Normal 136-145 [facility] Comment on above: Performed By: #### L 502.0500, L500.4100, L500.4050, L501.9520, L100.0100 #### [facility] [address] [place], [address] T PROT 7.2 g/dL Normal 6.4-8.2 [facility] Comment on above: Performed By: #### L 502.0500, L500.4100, L500.4050, L501.9520, L100.0100 #### [facility] [address] [place], [address] Urea nitrogen [Mass/Vol] 19 mg/dL High 7-18 [facility] Comment on above: Performed By: #### L 502.0500, L500.4100, L500.4050, L501.9520, L100.0100 #### [facility] [address] [place], [address] Lipid Profileon 02-26-2024 Cholesterol [Mass/Vol] 121 mg/dL Normal 200 [facility] Comment on above: Result Comment: <200 mg/dL Desirable 200-240 mg/dL Borderline >240 mg/dL High Risk Performed By: #### L 502.0500, L500.4100, L500.4050, L501.9520, L100.0100 #### [facility] [address] [place], [address] Cholesterol in HDL [Mass/Vol] 43 mg/dL Normal [facility] Comment on above: Result Comment: The drugs N-Acetylcysteine and Metamizole may falsely depress this assay. Reference Range HDL <40 mg/dL Low HDL Cholesterol HDL >or= 60 mg/dL High HDL Cholesterol Performed By: #### L 502.0500, L500.4100, L500.4050, L501.9520, L100.0100 #### [facility] [address] [place], [address] Cholesterol in LDL [Mass/Vol] 59 mg/dL Normal 0-130 [facility] Comment on above: Performed By: #### L 502.0500, L500.4100, L500.4050, L501.9520, L100.0100 #### [facility] [address] [place], [address] Cholesterol in VLDL [Mass/Vol] 19 mg/dL Normal 5-40 [facility] Comment on above: Performed By: #### L 502.0500, L500.4100, L500.4050, L501.9520, L100.0100 #### [facility] [address] [place], [address] Triglyceride [Mass/Vol] 96 mg/dL Normal [facility] Comment on above: Result Comment: The drugs N-Acetylcysteine and Metamizole may falsely depress this assay. Serum Triglycerides Reference Interval Normal <150 mg/dL Borderline high 150 - 199 mg/dL High 200 - 499 mg/dL Very High > or = 500 mg/dL Performed By: #### L 502.0500, L500.4100, L500.4050, L501.9520, L100.0100 #### [facility] [address] [place], [address] Microalbumin,Random Urineon 02-26-2024 MICROALBUMIN,UR 8.6 mg/L Normal NO RANGE EST. [facility] Comment on above: Performed By: #### L 502.0500, L500.4100, L500.4050, L501.9520, L100.0100 #### [facility] [address] [place], [place], [address] Thyroid Stim Hormone (TSH)on 02-26-2024 TSH 1.370 uIU/mL Normal 0.358-3.740 [facility] Comment on above: Performed By: #### L 502.0500, L500.4100, L500.4050, L501.9520, L100.0100 #### [facility] [address] [place], [place], [address] Absolute lymphocyte countOrd ered By: [facility] Susana Garvin on 10-23-2023 Lymphocytes Auto (Unsp spec) [#/Vol] 2.35 10*3/uL 0.83-4.51 [facility] Automated lymphocyte count a s percentage of total leukocytesOrdered By: [facility] Susana Garvin on 10-23-2023 Lymphocytes/100 WBC Auto (Unsp spec) 37.5 % 19-41 [facility] Basophil percentageOrdered B y: [facility] Susana Garvin on 10-23-2023 Basophils/100 WBC (Bld) 0.6 % 0-[address] [facility] Bilirubin [Mass/Vol] 0.40 mg/dL 0.20-1.00 [facility] Comment on above: For patients on eltr ombopag therapy, use of Dim[place] TBIL is not recommended. Chloride [Moles/Vol] 104 mmol/L 98-107 [facility] Cholesterol [Mass/Vol] 150 mg/dL <200 [facility] Comment on above: <200 mg/dL Desirable 200-240 mg/dL Borderline >240 mg/dL High Risk Eosinophils/100 WBC (Bld) 2.4 % 0-5 [facility] Glucose [Mass/Vol] 234 mg/dL 74-106 [facility] Comment on above: Glucose result great er than or equal to 200 mg/dLsuggests DIABETES MELLITUS per A.D.A. criteria. Hemoglobin (Bld) [Mass/Vol] 14.6 g/dL 13.0-16.5 [facility] Monocytes/100 WBC (Bld) 7.2 % 0-[address] [facility] Neutrophils (Bld) [#/Vol] 3.3 10*3/uL 2.0-7.7 [facility] Neutrophils/100 WBC (Bld) 52.0 % 47-70 [facility] Potassium [Moles/Vol] 4.1 mmol/L 3.5-5.1 [facility] Protein [Mass/Vol] 7.5 g/dL 6.4-8.2 [facility] Sodium [Moles/Vol] 136 mmol/L 136-145 [facility] Triglyceride [Mass/Vol] 263 mg/dL <[address] [facility] Comment on above: The drugs N-Acetylcy steine and Metamizole may falsely depress this assay.Serum Triglycerides Reference Interval Normal <150 mg/dL Borderline high 150 - 199 mg/dL High 200 - 499 mg/dL Very High > or = 500 mg/dL WBC (Bld) [#/Vol] 6.3 10*3/uL 4.4-11.0 [facility] Determination of erythrocyte mean corpuscular volume (MCV)Ordered By: [facility] Susana Garvin on 10-23-2023 MCV (RBC) [Entitic vol] 88.4 fL 80-[address] [facility] Erythrocyte distribution wid th ratioOrdered By: [facility] Susana Garvin on 10-23-2023 Erythrocyte distribution width (RBC) [Ratio] 11.8 % 11.6-14.6 [facility] Erythrocyte distribution wid th standard deviationOrdered By: [facility] Susana Garvin on 10-23-2023 Erythrocyte distribution width (RBC) [Entitic vol] 37.8 fL 35.1-43.9 [facility] Hematocrit Auto (Bld) [Volum e fraction]Ordered By: [facility] Susana Garvin on 10-23-2023 Hematocrit (Bld) [Volume fraction] 42.8 % 40-54 [facility] Immature granulocytes/100 WB C Auto (Bld)Ordered By: [facility] Susana Garvin on 10-23-2023 Immature granulocytes/100 WBC (Bld) 0.300 % 0.0-0.9 [facility] Comment on above: IG% - Immature Granu locytes (promyelocytes, myelocytes and metamyelocytes) > 1% indicates that a LEFT SHIFT is Present. Laboratory - Chemistry and C hemistry - challengeOrdered By: [facility] Susana Bharathi on 10-23-2023 Albumin/Globulin [Mass ratio] 0.9 {ratio} 0.9-2.4 [facility] ALP [Catalytic activity/Vol] 133 U/L 45-117 [facility] ALT [Catalytic activity/Vol] 38 U/L 16-61 [facility] Cholesterol in HDL [Mass/Vol] 31 mg/dL >40 [facility] Comment on above: The drugs N-Acetylcy steine and Metamizole may falsely depress this assay. Reference Range HDL <40 mg/dL Low HDL Cholesterol HDL >or= 60 mg/dL High HDL Cholesterol Cholesterol in LDL [Mass/Vol] 66 mg/dL 0-130 [facility] CO2 [Moles/Vol] 27.0 mmol/L 21.0-32.0 [facility] Globulin (S) [Mass/Vol] 3.9 g/dL 2.2-4.2 [facility] Urea nitrogen/Creatinine [Mass ratio] 18.3 mg/mg 10-20 [facility] - Hematology and Cell countsOrdered By: [facility] Susana Garvin on 10-23-2023 MCH (RBC) [Entitic mass] 30.2 pg 27.0-32.0 [facility] MCHC (RBC) [Mass/Vol] 34.1 g/dL 32-36 [facility] Nucleated RBC/100 WBC (Bld) [Ratio] 0 % 0-5 [facility] Platelet mean volume (Bld) [Entitic vol] 10.2 fL 6.2-12.0 [facility] Platelets (Bld) [#/Vol] 221 10*3/uL 150-450 [facility] No Panel InformationOrdered By: [facility] Susana Garvin on 10-23-2023 Estimated GFR (MDRD) Amer 105 mL/min >60 [facility] Comment on above: GFR Calc Estimated GFR (MDRD) Non-Af Amer 87 mL/min >60 [facility] Comment on above: Non- GFR Calc Prostate Specific Antigen Screen 0.98 ng/mL 0.00-4.00 [facility] Comment on above: This test was perfor med using the TPSA assay method for the[employer] chemistry system. Values obtained with differentassay methods cannot be used interchangably.When changing PSA assays in the course of monitoring apatient, additional sequential testing should be carriedout to confirm baseline values. VLDL Cholesterol 53 mg/dL 5-40 [facility] RBC Auto (Bld) [#/Vol]Ordere d By: [facility] Susana Garvin on 10-23-2023 RBC (Bld) [#/Vol] 4.84 10*6/uL 4.6-6.2 [facility] Serum or plasma calcium rtuhie urement (mass/volume)Ordered By: [facility] Susana Garvin on 10-23-2023 Calcium [Mass/Vol] 9.1 mg/dL 8.5-10.1 [facility] Serum or plasma creatinine m easurement (mass/volume)Ordered By: [facility] Susana Garvin on 10-23-2023 Creatinine [Mass/Vol] 0.93 mg/dL 0.70-1.30 [facility] Comment on above: The validity of the calculated GFR & GFRAA in patients over 70 years has not been determined. Clinical correlation is essential. Serum or plasma thyroid stim ulating hormone (TSH) measurement (units/volume)Ordered By: [facility] Susana Garvin on 10-23-2023 TSH Qn 1.52 uIU/mL 0.358-3.74 [facility] Serum or plasma urea nitroge n measurement (mass/volume)Ordered By: [facility] Susana Garvin on 10-23-2023 Urea nitrogen [Mass/Vol] 17 mg/dL 7-18 [facility] Thin prep Papanicolaou smear with manual screeningOrdered By: [facility] Susana Garvin on 10-23-2023 Thin prep Papanicolaou smear with manual screening 3.6 g/dL 3.2-5.0 [facility] Thin prep Papanicolaou smear with manual screening 34 U/L 15-37 [facility] Thin prep Papanicolaou smear with manual screening 5 5-15 [facility] Whole blood hemoglobin A1c/t otal hemoglobin ratio (mass fraction)Ordered By: [facility] Susana Bharathi on 10-23-2023 HbA1c (Bld) [Mass fraction] 10.1 % 3.8-5.6 [facility] Comment on above: Normal < 5.7 % Predi abetic 5.7 - 6.4 % Diabetic >or= 6.5 % Please note range changes. CNOVon 10-13-2021 CNOV Office Visit ([facility]) GARRETT CACERES ([id number]) 1960 M Date Time Provider Department 10/13/21 11:40 AM HELEN ALVAREZ During your visit today, we recorded the following information about you: Temperature Pulse Respiration Blood pressure 98 degrees 108/minute 16/minute 128/76 Weight Height 121.5 kg 1.778 m Helen Alvarez DO 10/30/2021 4:55 PM Signed Subjective The history is provided by the patient. This is a former patient of Dr. Hernandez here to establish with me and for HTN f/u Pt was started on flomax at his last visit with Dr. Hernandez 6 months ago for urinary frequency He did not notice any improvement in the 30 days he took it He does not want to see a urologist at this time He has a history of prediabetes Was checking blood sugars at home, but has stopped Pt started on lipitor 10 mg daily about one month ago ALLERGIES Allergen Reactions - Penicillin Other: See Comments Current Outpatient Medications Medication Sig Dispense Refill - atorvastatin (LIPITOR) 10 mg tablet Take 1 tablet by mouth once daily. 30 tablet 1 - lisinopril (ZESTRIL, PRINIVIL) 10 mg tablet TAKE 1 TABLET BY MOUTH ONCE DAILY 90 tablet 0 - tamsulosin (FLOMAX) 0.4 mg Take 1 capsule by mouth daily at bedtime. 30 capsule 0 - blood sugar diagnostic (FREESTYLE LITE STRIPS) test strip Use as instructed, as covered by insurance 100 Strip 1 - lancets (FREESTYLE LANCETS) 28 gauge Inject 1 Lancet subcutaneously once daily. As covered by insurance 30 Each 0 - LOW-DOSE ASPIRIN ORAL Take by mouth. No current facility-administered medications for this visit. ACTIVE PROBLEM LIST Obesity, Class II, Bmi 35-39.9 Social History Tobacco Use - Smoking status: Former Smoker Packs/day: 3.00 Years: 9.00 Pack years: 27.00 Quit date: 08/30/2012 Years since quittin.1 - Smokeless tobacco: Never Used Vaping Use - Vaping Use: Never used Substance Use Topics - Alcohol use: Yes Comment: social - Drug use: Never Family History Problem Relation Age of Onset - Hypertension Mother - Hypertension Father - Cancer Brother sarcoma? - Hypertension Brother - Hypertension Brother - Hypertension Brother - Diabetes Maternal Aunt Reviewed past medical history, family history and surgeries. All medications and supplements were reviewed with the patient. Review of Systems Constitutional: Negative for chills, diaphoresis, fever, malaise/fatigue and weight loss. HENT: Negative for ear pain and hearing loss. Eyes: Negative for blurred vision and double vision. Respiratory: Negative for cough and shortness of breath. Cardiovascular: Negative for chest pain, palpitations and leg swelling. Gastrointestinal: Negative for constipation, diarrhea and heartburn. Genitourinary: Negative for dysuria and frequency. Musculoskeletal: Negative for back pain, falls, joint pain and myalgias. Skin: Negative for itching and rash. Neurological: Negative for dizziness, weakness and headaches. Endo/Heme/Allergies: Does not bruise/bleed easily. Psychiatric/Behaviora l: Negative for depression and substance abuse. The patient does not have insomnia. Objective BP 136/86 (BP Site: Right Arm, BP Position: Sitting, BP Cuff Size: Large Adult) Pulse 108 Temp 36.7 ?C (98 ?F) Resp 16 Ht 177.8 cm (5' 10) Wt 121.5 kg (267 lb 12.8 oz) SpO2 97% BMI 38.43 kg/m? Physical Exam Constitutional: General: He is not in acute distress. Appearance: Normal appearance. He is obese. HENT: Head: Normocephalic and atraumatic. Nose: Nose normal. Mouth/Throat: Mouth: Mucous membranes are moist. Dentition: Normal dentition. Eyes: General: Lids are normal. Extraocular Movements: Extraocular movements intact. Conjunctiva/sclera: Conjunctivae normal. Pupils: Pupils are equal, round, and reactive to light. Neck: Thyroid: No thyroid mass or thyromegaly. Vascular: No carotid bruit. Trachea: Phonation normal. Cardiovascular: Rate and Rhythm: Normal rate and regular rhythm. Heart sounds: Normal heart sounds. No murmur heard. No friction rub. No gallop. Pulmonary: Effort: Pulmonary effort is normal. Breath sounds: Normal breath sounds. No wheezing or rales. Abdominal: General: Bowel sounds are normal. There is no distension. Palpations: Abdomen is soft. There is no mass. Tenderness: There is no abdominal tenderness. Musculoskeletal: General: No swelling or tenderness. Normal range of motion. Cervical back: Normal range of motion and neck supple. No edema. Lymphadenopathy: Cervical: No cervical adenopathy. Skin: General: Skin is warm and dry. Findings: No erythema or rash. Nails: There is no clubbing. Neurological: Mental Status: He is alert and oriented to person, place, and time. Cranial Nerves: No cranial nerve deficit. Motor: Motor function is intact. Coordination: Coordin (more content not included)... Normal [facility] 09-21-2021 [facility] Telephone (AGINTMLW) GARRETT CACERES ([id number]) 1960 M Date Time Provider Department 09/21/21 HELEN ALVAREZ CYRILRegine During your visit today, we recorded the following information about you: Leno Barillas MA 09/21/2021 11:01 AM Signed ----- Message from Khoa Hernandez MD sent at 09/21/2021 11:00 AM EDT ----- Normal PSA Leno Barillas MA 09/21/2021 11:04 AM Signed Patient is informed. Leno Barillas MA Allergies As of Date: 09/21/2021 (Not on File) Date Reviewed: 04/14/2021 Reviewed by: Khoa Hernandez MD - Fully Assessed Reason for Visit: Results [95] Prescriptions as of 09/21/2021 - lisinopril (ZESTRIL, PRINIVIL) 10 mg tablet TAKE 1 TABLET BY MOUTH ONCE DAILY - tamsulosin (FLOMAX) 0.4 mg Take 1 capsule by mouth daily at bedtime. - blood sugar diagnostic (FREESTYLE LITE STRIPS) test strip Use as instructed, as covered by insurance - lancets (FREESTYLE LANCETS) 28 gauge Inject 1 Lancet subcutaneously once daily. As covered by insurance - LOW-DOSE ASPIRIN ORAL Take by mouth. Problem List As Of Date 09/21/2021 Noted Resolved Obesity, Class II, BMI 35-39.9 [E66.9] 03/02/2020 Encounter Status:Closed by LENO BARILLAS on 09/21/21 Normal [facility] CBC panel Auto (Bld)on 09-20 Erythrocyte distribution width (RBC) [Ratio] 12.4 % Normal 11.5-15.0 [facility] Comment on above: Order Comment: Brooklynn avalos Type: BLOOD SPECIMEN Ordering Facility: [facility] Address: [address] [place] [address] Performed By: #### 5 8410-2 #### [facility] CLIA [id number] [address] [place] OF [facility] Hematocrit (Bld) [Volume fraction] 43.5 % Normal 39.0-51.0 [facility] Comment on above: Order Comment: Brooklynn avalos Type: BLOOD SPECIMEN Ordering Facility: [facility] Address: [address] [place] [address] Performed By: #### 5 8410-2 #### [facility] CLIA [id number] [address] [place] [address] [place] Hemoglobin (Bld) [Mass/Vol] 14.4 g/dL Normal 13.0-17.0 [facility] Comment on above: Order Comment: Speci men Type: BLOOD SPECIMEN Ordering Facility: [facility] Address: [address] [place] [address] Performed By: #### 5 8410-2 #### [facility] CLIA [id number] [address] [place] [id number] [place] [address] [place] MCH (RBC) [Entitic mass] 30.3 pg Normal 26.0-34.0 [facility] Comment on above: Order Comment: Speci men Type: BLOOD SPECIMEN Ordering Facility: [facility] Address: [address] [place] [address] Performed By: #### 5 8410-2 #### [facility] CLIA [id number] [address] [place] [address] [place] MCHC (RBC) [Mass/Vol] 33.1 g/dL Normal 30.5-36.0 [facility] Comment on above: Order Comment: Speci men Type: BLOOD SPECIMEN Ordering Facility: [facility] Address: [address] [place] [address] Performed By: #### 5 8410-2 #### [facility] CLIA [id number] [address] [place] [address] [place] MCV (RBC) [Entitic vol] 91.4 fL Normal 80.0-100.0 [facility] Comment on above: Order Comment: Speci men Type: BLOOD SPECIMEN Ordering Facility: [facility] Address: [address] [place] [address] Performed By: #### 5 8410-2 #### [facility] CLIA [id number] [address] [place] [address] [place] Platelet mean volume (Bld) [Entitic vol] 9.6 fL Normal 9.0-12.7 [facility] Comment on above: Order Comment: Speci men Type: BLOOD SPECIMEN Ordering Facility: [facility] Address: [address] [place] [address] Performed By: #### 5 8410-2 #### [facility] CLIA [id number] [address] Platelets (Bld) [#/Vol] 202 10*3/uL Normal 150-400 [facility] Comment on above: Order Comment: Speci men Type: BLOOD SPECIMEN Ordering Facility: [facility] Address: [address] [place] [address] Performed By: #### 5 8410-2 #### [facility] CLIA [id number] [address] RBC (Bld) [#/Vol] 4.76 10*6/uL Normal 4.20-6.00 [facility] Comment on above: Order Comment: Speci men Type: BLOOD SPECIMEN Ordering Facility: [facility] Address: [address] [place] [address] Performed By: #### 5 8410-2 #### [facility] CLIA [id number] [address] WBC (Bld) [#/Vol] 4.32 10*3/uL Normal 3.70-11.00 [facility] Comment on above: Order Comment: Speci men Type: BLOOD SPECIMEN Ordering Facility: [facility] Address: [address] [place] [address] Performed By: #### 5 8410-2 #### [facility] CLIA [id number] [address] CNP[facility]nette 09-20-2021 [facility] Telephone (AGINTMLW) GARRETT CACERES ([id number]) 1960 M Date Time Provider Department 09/20/21 KHOA HERNANDEZ During your visit today, we recorded the following information about you: Leno Barillas MA 09/20/2021 2:22 PM Signed ----- Message from Khoa Hernandez MD sent at 09/20/2021 11:57 AM EDT ----- Normal CBC. Remaining labs are still pending. Leno Barillas MA 09/20/2021 2:23 PM Signed Patient informed. Leno Barillas MA Allergies As of Date: 09/20/2021 (Not on File) Date Reviewed: 04/14/2021 Reviewed by: Khoa Hernandez MD - Fully Assessed Reason for Visit: Results [95] Prescriptions as of 09/20/2021 - lisinopril (ZESTRIL, PRINIVIL) 10 mg tablet TAKE 1 TABLET BY MOUTH ONCE DAILY - tamsulosin (FLOMAX) 0.4 mg Take 1 capsule by mouth daily at bedtime. - blood sugar diagnostic (FREESTYLE LITE STRIPS) test strip Use as instructed, as covered by insurance - lancets (FREESTYLE LANCETS) 28 gauge Inject 1 Lancet subcutaneously once daily. As covered by insurance - LOW-DOSE ASPIRIN ORAL Take by mouth. Problem List As Of Date 09/20/2021 Noted Resolved Obesity, Class II, BMI 35-39.9 [E66.9] 03/02/2020 Encounter Status:Closed by LENO BARILLAS on 09/20/21 Normal [facility] Telephone (AGINTMLW) GARRETT CACERES ([id number]) 1960 M Date Time Provider Department 09/20/21 HELEN ALVAREZ During your visit today, we recorded the following information about you: Shruthi Cobb MA 09/20/2021 4:56 PM Signed ----- Message from Khoa Hernandez MD sent at 09/20/2021 3:25 PM EDT ----- Patient's glucose is slightly elevated. Continue to monitor diet. His triglycerides and LDL are slightly elevated. Based on his risk score, he should be taking a cholesterol medication. If agreeable, will order. Remaining labs are fairly unremarkable. PSA still pending. Shruthi Cobb MA 09/20/2021 4:57 PM Signed Called pt left VM for him to call the office back for results BASIL Elmore MA 09/21/2021 9:05 AM Signed Patient informed and is agreeable for cholesterol medication and it can be sent DDM. BASIL Shah MD 09/21/2021 1:10 PM Signed Addended by: KHOA HERNANDEZ on: 09/21/2021 01:10 PM Modules accepted: Orders Khoa Hernandez MD 09/21/2021 1:10 PM Signed Ordered. Allergies As of Date: 09/20/2021 (Not on File) Date Reviewed: 04/14/2021 Reviewed by: Khoa Hernandez MD - Fully Assessed Reason for Visit: Results [95] Order(s):atorvastatin (LIPITOR) 10 mg tabletTake 1 tablet by mouth once daily.Disp: 30 tabletRfl: 1 Prescriptions as of 09/21/2021 - atorvastatin (LIPITOR) 10 mg tablet Take 1 tablet by mouth once daily. - lisinopril (ZESTRIL, PRINIVIL) 10 mg tablet TAKE 1 TABLET BY MOUTH ONCE DAILY - tamsulosin (FLOMAX) 0.4 mg Take 1 capsule by mouth daily at bedtime. - blood sugar diagnostic (FREESTYLE LITE STRIPS) test strip Use as instructed, as covered by insurance - lancets (FREESTYLE LANCETS) 28 gauge Inject 1 Lancet subcutaneously once daily. As covered by insurance - LOW-DOSE ASPIRIN ORAL Take by mouth. Problem List As Of Date 09/20/2021 Noted Resolved Obesity, Class II, BMI 35-39.9 [E66.9] 03/02/2020 Prescriptions ordered this encounter Disp Refills Start End ATORVASTATIN 10 MG TABLET 30 t* 1 09/21/2021 Route: ORAL Sig: Take 1 tablet by mouth once daily. Encounter Status:Closed by SHRUTHI [place] on 09/20/21 Normal [facility] metabolic 2000 panelon 09-20-2021 Albumin [Mass/Vol] 4.4 g/dL Normal 3.9-4.9 [facility] Comment on above: Order Comment: Speci men Type: BLOOD SPECIMEN Ordering Facility: [facility] Address: [address] [place] [address] Performed By: #### 2 4323-8, LIPB #### [facility] CLIA [id number] [address] [place] [facility] ALP [Catalytic activity/Vol] 102 U/L Normal 38-113 [facility] Comment on above: Order Comment: Speci men Type: BLOOD SPECIMEN Ordering Facility: [facility] Address: [address] [place] [address] Performed By: #### 2 4323-8, LIPB #### [facility] CLIA [id number] [address] [place] ALT With P-5'-P [Catalytic activity/Vol] 22 U/L Normal 10-54 [facility] Comment on above: Order Comment: Speci men Type: BLOOD SPECIMEN Ordering Facility: [facility] Address: [address] [place] [address] Performed By: #### 2 4323-8, LIPB #### [facility] CLIA [id number] [address] [place] [address] [place] [facility] Anion gap [Moles/Vol] 10 mmol/L Normal 9-18 [facility] Comment on above: Order Comment: Speci men Type: BLOOD SPECIMEN Ordering Facility: [facility] Address: [address] [place] [address] Performed By: #### 2 4323-8, LIPB #### [facility] CLIA [id number] [address] [place] [address] [place] AST With P-5'-P [Catalytic activity/Vol] 24 U/L Normal 14-40 [facility] Comment on above: Order Comment: Speci men Type: BLOOD SPECIMEN Ordering Facility: [facility] Address: [address] [place] [address] Performed By: #### 2 4323-8, LIPB #### [facility] CLIA [id number] [address] [place] [address] [place] Bilirubin [Mass/Vol] 0.3 mg/dL Normal 0.2-1.3 [facility] Comment on above: Order Comment: Speci men Type: BLOOD SPECIMEN Ordering Facility: [facility] Address: [address] [place] [address] Performed By: #### 2 4323-8, LIPB #### [facility] CLIA [id number] [address] [place] [address] [place] Calcium [Mass/Vol] 9.3 mg/dL Normal 8.5-10.2 [facility] Comment on above: Order Comment: Speci men Type: BLOOD SPECIMEN Ordering Facility: [facility] Address: [address] [place] [address] Performed By: #### 2 4323-8, LIPB #### [facility] CLIA [id number] [address] [place] [address] [place] Chloride [Moles/Vol] 104 mmol/L Normal 97-105 [facility] Comment on above: Order Comment: Speci men Type: BLOOD SPECIMEN Ordering Facility: [facility] Address: [address] [place] [address] Performed By: #### 2 4323-8, LIPB #### [facility] CLIA [id number] [address] [place] [address] [place] CO2 [Moles/Vol] 26 mmol/L Normal 22-30 [facility] Comment on above: Order Comment: Speci men Type: BLOOD SPECIMEN Ordering Facility: [facility] Address: [address] [place] [address] Performed By: #### 2 4323-8, LIPB #### [facility] CLIA [id number] [address] [place] [address] [place] Creatinine [Mass/Vol] 0.94 mg/dL Normal 0.73-1.22 [facility] Comment on above: Order Comment: Brooklynn avalos Type: BLOOD SPECIMEN Ordering Facility: [facility] Address: [address] [place], [place] [address] Performed By: #### 2 4323-8, LIPB #### [facility] CLIA [id number] [address] [place] [address] [place] ESTIMATED GLOMERULAR FILTRATION RATE 92 mL/min/1.73m??? Normal >=60 [facility] Comment on above: Order Comment: Brooklynn avalos Type: BLOOD SPECIMEN Ordering Facility: [facility] Address: [address] [place] [address] Result Comment: Jennie mated Glomerular Filtration Rate (eGFR) is calculated using the 2020 CKD-EPI creatinine equation. This equation utilizes serum creatinine, sex, and age as parameters. The creatinine assay has traceable calibration to isotope dilution-mass spectrometry. Refer to KDIGO guidelines for clinical interpretation. In patients with unstable renal function, e.g. those with acute kidney injury, the eGFR may not accurately reflect actual GFR. Performed By: #### 2 4323-8, LIPB #### [facility] CLIA [id number] [address] [place] [address] [place] Glucose [Mass/Vol] 131 mg/dL High 74-99 [facility] Comment on above: Order Comment: Brooklynn avalos Type: BLOOD SPECIMEN Ordering Facility: [facility] Address: [address] [place] [address] Result Comment: The [place] Diabetes Association (ADA) provides guidance for cutoff values for fasting glucose and random glucose. The ADA defines fasting as no caloric intake for at least 8 hours. Fasting plasma glucose results between 100 to 125 mg/dL indicate increased risk for diabetes (prediabetes). Fasting plasma glucose results greater than or equal to 126 mg/dL meet the criteria for diagnosis of diabetes. In the absence of unequivocal hyperglycemia, results should be confirmed by repeat testing. In a patient with classic symptoms of hyperglycemia or hyperglycemic crisis, random plasma glucose results greater than or equal to 200 mg/dL meet the criteria for diagnosis of diabetes. Reference: Standards of Medical Care in Diabetes 2016, [place] Diabetes Association. Diabetes Care. 2016.39(Suppl 1). Performed By: #### 2 4323-8, LIPB #### [facility] CLIA [id number] [address] [place] [address] [place] Potassium [Moles/Vol] 4.3 mmol/L Normal 3.7-5.1 [facility] Comment on above: Order Comment: Speci men Type: BLOOD SPECIMEN Ordering Facility: [facility] Address: [address] [place] [address] Performed By: #### 2 4323-8, LIPB #### [facility] CLIA [id number] [address] [place] [address] [place] Protein [Mass/Vol] 7.1 g/dL Normal 6.3-8.0 [facility] Comment on above: Order Comment: Speci men Type: BLOOD SPECIMEN Ordering Facility: [facility] Address: [address] [place] [address] Performed By: #### 2 4323-8, LIPB #### [facility] CLIA [id number] [address] [place] [address] [place] Sodium [Moles/Vol] 140 mmol/L Normal 136-144 [facility] Comment on above: Order Comment: Speci men Type: BLOOD SPECIMEN Ordering Facility: [facility] Address: [address] [place] [address] Performed By: #### 2 4323-8, LIPB #### [facility] CLIA [id number] [address] [place] [address] [place] Urea nitrogen [Mass/Vol] 17 mg/dL Normal 9-24 [facility] Comment on above: Order Comment: Speci men Type: BLOOD SPECIMEN Ordering Facility: [facility] Address: [address] [place] [address] Performed By: #### 2 4323-8, LIPB #### [facility] CLIA [id number] [address] LIPID PANEL BASICon 09-21-19 22 Cholesterol [Mass/Vol] 188 mg/dL Normal <200 [facility] Comment on above: Order Comment: Speci men Type: BLOOD SPECIMEN Ordering Facility: [facility] Address: [address] [place] [address] Result Comment: <200 mg/dL, Desirable 200-239 mg/dL, Borderline high >239 mg/dL, High Performed By: #### 2 4323-8, LIPB #### [facility] CLIA [id number] [address] Cholesterol in HDL [Mass/Vol] 35 mg/dL Low >39 [facility] Comment on above: Order Comment: Speci men Type: BLOOD SPECIMEN Ordering Facility: [facility] Address: [address] [place] [address] Result Comment: 40-5 9 mg/dL, Acceptable >59 mg/dL, High: Negative risk factor for coronary heart disease <40 mg/dL, Low: Positive risk factor for coronary heart disease Performed By: #### 2 4323-8, LIPB #### [facility] CLIA [id number] [address] OF [facility] Cholesterol in LDL [Mass/Vol] 106 mg/dL High <100 [facility] Comment on above: Order Comment: Speci men Type: BLOOD SPECIMEN Ordering Facility: [facility] Address: [address] [place] [address] Result Comment: <100 mg/dL, Optimal 100-129 mg/dL, Near optimal/above optimal 130-159 mg/dL, Borderline high 160-189 mg/dL, High >189 mg/dL, Very high Secondary prevention optimal LDL Cholesterol levels are recommended to be < 70 mg/dL Performed By: #### 2 4323-8, LIPB #### [facility] CLIA [id number] [address] [place] [address] [facility] Cholesterol in LDL/Cholesterol in HDL [Mass ratio] 3.03 {ratio} High <2.54 [facility] Comment on above: Order Comment: Brooklynn avalos Type: BLOOD SPECIMEN Ordering Facility: [facility] Address: [address] [place] [address] Result Comment: Refe rence: 1. National Cholesterol Education Program ATP III Guideline At-A-Glance Quick Desk Reference: National Heart, Lung, and Blood [place]. National Institutes of Health. 2001: NIH Publication No. 01-3305. 2. An International Atherosclerosis Society position paper: global recommendations for the management of dyslipidemia: executive summary, Atherosclerosis. 2014: 232(2):410-413. Performed By: #### 2 4323-8, LIPB #### [facility] CLIA [id number] [address] Cholesterol in VLDL [Mass/Vol] 47 mg/dL High <30 [facility] Comment on above: Order Comment: Brooklynn avalos Type: BLOOD SPECIMEN Ordering Facility: [facility] Address: [address] [place] [address] Performed By: #### 2 4323-8, LIPB #### [facility] CLIA [id number] [address] [place] Cholesterol non HDL [Mass/Vol] 153 mg/dL High <130 [facility] Comment on above: Order Comment: Brooklynn avalos Type: BLOOD SPECIMEN Ordering Facility: [facility] Address: [address] [place] [address] Result Comment: <130 mg/dL, Optimal 130-159 mg/dL, Near optimal/above optimal 160-189 mg/dL, Borderline high 190-219 mg/dL, High >219 mg/dL, Very high Secondary prevention optimal non HDL Cholesterol levels are recommended to be <100 mg/dL Performed By: #### 2 4323-8, LIPB #### [facility] CLIA [id number] [address] [place] [id number] [facility] [place] Cholesterol.total/Choles terol in HDL [Mass ratio] 5.37 {ratio} High <5.10 [facility] Comment on above: Order Comment: Speci men Type: BLOOD SPECIMEN Ordering Facility: [facility] Address: [address] [place] [address] Performed By: #### 2 4323-8, LIPB #### [facility] CLIA [id number] [address] FASTING TIME 12 hrs Normal [facility] Comment on above: Order Comment: Speci men Type: BLOOD SPECIMEN Ordering Facility: [facility] Address: [address] [place] [address] Performed By: #### 2 4323-8, LIPB #### [facility] CLIA [id number] [address] Triglyceride [Mass/Vol] 234 mg/dL High <150 [facility] Comment on above: Order Comment: Speci men Type: BLOOD SPECIMEN Ordering Facility: [facility] Address: [address] [place] [address] Result Comment: <150 mg/dL, Normal 150-199 mg/dL, Borderline high 200-499 mg/dL, High >499 mg/dL, Very high Performed By: #### 2 4323-8, LIPB #### [facility] CLIA [id number] [address] [place] PSA/PROSTSPECAG SCRNon 09-20 Prostate specific Ag [Mass/Vol] 1.53 ng/mL Normal 0.00-3.90 [facility] Comment on above: Order Comment: Speci men Type: BLOOD SPECIMEN Ordering Facility: [facility] Address: [address] [place] [address] Result Comment: Tota l PSA test methodology used is the Direct Chemiluminometric technology. Performed By: #### P SAS1 #### [facility] CLIA [id number] [address] [place] CNOVon 04-14-2021 CNOV Office Visit (AGINTMLW) GARRETT CACERES ([id number]) 1960 M Date Time Provider Department 04/14/21 8:20 AM KHOA HERNANDEZ AGINTMLW During your visit today, we recorded the following information about you: Temperature Pulse Respiration Blood pressure 97.7 degrees 67/minute 18/minute 122/78 Weight Height 114.3 kg 1.778 m Khoa Hernandez MD 04/14/2021 8:39 AM Signed This note was created using Gemisimo. Subjective Garrett Caceres is a 59 year old male. The patient is here for a follow up. The patient isn't due for any blood work. He declined any immunizations. He is up to date on his screening. The patient is a former smoker and does need refills today. The patient reports he is trying to eat healthy. He reports his activity level is moderate. The patient hasn't been monitoring his sugars. He reports he is trying to monitor his sugar and carbohydrate intake. He reports he is checking his blood pressure at home occasionally. He reports it is overall well controlled. He is taking his lisinopril as prescribed without problems. He reports he does try to watch his salt intake. He has concerns about urinary concerns. He reports he has been dribbling. He reports it has been going on for about 6 months. He denies any dysuria. He reports most of the time he does empty fully, but reports he has urinary frequency. He reports he does have some nocturia. He reports his symptoms aren't worsening, they just aren't getting better. He reports when he urinates, it seems to spray everywhere. He reports he was circumcised as a child, but seems to have a lot of foreskin that he has to pull back when urinating. He has no other questions or concerns today. The history is provided by the patient. Hypertension This is a chronic problem. The current episode started more than 1 year ago. The problem is unchanged. The problem is controlled. Pertinent negatives include no chest pain, headaches, palpitations or shortness of breath. There are no associated agents to hypertension. Risk factors for coronary artery disease include male gender, obesity and sedentary lifestyle. Past treatments include ZULEYMA inhibitors. The current treatment provides moderate improvement. Compliance problems include diet. There is no history of kidney disease or CAD/KS. There is no history of chronic renal disease or a thyroid problem. Benign Prostatic Hypertrophy This is a chronic problem. The current episode started more than 1 month ago. The problem is unchanged. Irritative symptoms include frequency and nocturia. Obstructive symptoms include dribbling and a weak stream. Pertinent negatives include no dysuria, genital pain, hematuria, nausea or vomiting. He is not sexually active. ALLERGIES Not on File Current Outpatient Medications Medication Sig Dispense Refill - lisinopril (ZESTRIL, PRINIVIL) 10 mg tablet Take 1 tablet by mouth once daily. 90 tablet 1 - blood sugar diagnostic (FREESTYLE LITE STRIPS) test strip Use as instructed, as covered by insurance 100 Strip 1 - lancets (FREESTYLE LANCETS) 28 gauge Inject 1 Lancet subcutaneously once daily. As covered by insurance 30 Each 0 - LOW-DOSE ASPIRIN ORAL Take by mouth. - tamsulosin (FLOMAX) 0.4 mg Take 1 capsule by mouth daily at bedtime. 30 capsule 0 No current facility-administered medications for this visit. ACTIVE PROBLEM LIST Obesity, Class II, Bmi 35-39.9 Social History Tobacco Use - Smoking status: Former Smoker Packs/day: 3.00 Years: 9.00 Pack years: 27.00 Quit date: 08/30/2012 Years since quittin.6 - Smokeless tobacco: Never Used Vaping Use - Vaping Use: Never used Substance Use Topics - Alcohol use: Yes Comment: social - Drug use: Never Family History Problem Relation Age of Onset - Hypertension Mother - Hypertension Father - Cancer Brother sarcoma? - Hypertension Brother - Hypertension Brother - Hypertension Brother - Diabetes Maternal Aunt Reviewed past medical and surgical history. Review of Systems Constitutional: Negative for fever and unexpected weight change. HENT: Negative for congestion, hearing loss and sore throat. Eyes: Negative for visual disturbance. Respiratory: Negative for cough, chest tightness and shortness of breath. Cardiovascular: Negative for chest pain, palpitations and leg swelling. Gastrointestinal: Negative for abdominal pain, constipation, diarrhea, nausea and vomiting. Genitourinary: Positive for frequency and nocturia. Negative for difficulty urinating, discharge, dysuria, hematuria and testicular pain. Musculoskeletal: Negative for gait problem. Skin: Negative for rash. Neurological: Positive for numbness (in right ring finger, rarely). Negative for dizziness, syncope, weakness, light-headedness and headaches. Psychiatric/Behaviora l: Negative for dysphoric mood, self-injury an (more content not included)... Normal [facility] CNCOon 04-13-2021 CNCO Letter Text Normal [facility] CNPNon 04-13-2021 CNPN Telephone (AGINTMLW) GARRETT CACERES ([id number]) 1960 Date Time Provider Department 04/13/21 KHOA HERNANDEZ AGINTMLW During your visit today, we recorded the following information about you: Salma Quarles 04/13/2021 11:01 AM Signed No Show Documentation Garrett Caceres no showed for an appointment on 04/13/2021 with Khoa Hernandez MD at 9:20 am. He was scheduled for a 6 month follow up for hypertension. I called and left a message for the patient regarding his missed appointment. Told him to call the office to reschedule. Resources discussed/offered to patient: na No show determined to be fault of patient: Yes This is the patients first no show in the last 12 months. Patient was rescheduled for na. Letter mailed : Yes Is this the Third or Fourth No Show? No Salma Quarles April 13, 2021 10:59 AM Allergies As of Date: 04/13/2021 (Not on File) Date Reviewed: 10/11/2020 Reviewed by: Khoa Hernandez - Fully Assessed Reason for Visit: Missed Appointment [1304] Cmt: 1st no show in 365 days (1st letter sent) Prescriptions as of 04/13/2021 - lisinopril (ZESTRIL, PRINIVIL) 10 mg tablet Take 1 tablet by mouth once daily. - blood sugar diagnostic (FREESTYLE LITE STRIPS) test strip Use as instructed, as covered by insurance - lancets (FREESTYLE LANCETS) 28 gauge Inject 1 Lancet subcutaneously once daily. As covered by insurance - hydrOXYzine HCl (ATARAX) 25 mg tablet Take 1 tablet by mouth three times daily as needed for Itching/Rash. - LOW-DOSE ASPIRIN ORAL Take by mouth. Problem List As Of Date 04/13/2021 Noted Resolved Obesity, Class II, BMI 35-39.9 [E66.9] 03/02/2020 Encounter Status:Closed by SALMA QUARLES on 04/13/[address] [facility] 01-10-2021 CNPN Telephone (AGINTMLW) GARRETT CACERES ([id number]) 1960 M Date Time Provider Department 01/10/21 KHOA HERNANDEZ AGINTMLW During your visit today, we recorded the following information about you: Shruthi Cobb MA 01/10/2021 7:59 AM Signed ----- Message from Jessica Benson sent at 07/13/2020 2:14 PM EST ----- Regarding: AF patient Patient due for 6 month recheck A1C after it was borderline on 07/06/20 blood work and at that time patient had been on steroids. YENNI Stein MD 01/10/2021 8:25 AM Signed Ordered. Thanks. Joan Moffett LPN 01/10/2021 9:06 AM Signed Pt notified of orders. Joan Moffett LPN Allergies As of Date: 01/10/2021 (Not on File) Date Reviewed: 10/11/2020 Reviewed by: Khoa Hernandez - Fully Assessed Reason for Visit: Orders [681] Primary Visit Diagnosis:Elevated hemoglobin A1c [R73.09] Order(s):HGB A1C [[id number]] Order #: [id number] FUTURE Prescriptions as of 01/10/2021 - lisinopril (ZESTRIL, PRINIVIL) 10 mg tablet Take 1 tablet by mouth once daily. - blood sugar diagnostic (FREESTYLE LITE STRIPS) test strip Use as instructed, as covered by insurance - lancets (FREESTYLE LANCETS) 28 gauge Inject 1 Lancet subcutaneously once daily. As covered by insurance - hydrOXYzine HCl (ATARAX) 25 mg tablet Take 1 tablet by mouth three times daily as needed for Itching/Rash. - LOW-DOSE ASPIRIN ORAL Take by mouth. Problem List As Of Date 01/10/2021 Noted Resolved Obesity, Class II, BMI 35-39.9 [E66.9] 03/02/2020 Encounter Status:Closed by KHOA HERNANDEZ on 01/10/21 Normal [facility] Vital Signs Date Time Vital Sign Value Performing Clinician Renny garvey 10-13-2021 12:09-0400 Diastolic blood pressure 76 mm[Hg] Helen Sheets DO Work Phone: [facility] 10-13-2021 12:09-0400 Systolic blood pressure 128 mm[Hg] Helen Sheets DO Work Phone: [facility] 10-13-2021 11:59-0400 Body height 177.8 cm Helen Sheets DO Work Phone: [facility] 10-13-2021 11:59-0400 Body temperature 98.01 [degF] Helen Sheets DO Work Phone: [facility] 10-13-2021 11:59-0400 Body weight 121.47 kg Helen Sheets DO Work Phone: [facility] 10-13-2021 11:59-0400 Heart rate 108 /min Helen Sheets DO Work Phone: [facility] 10-13-2021 11:59-0400 Respiratory rate 16 /min Helen Alvarez DO Work Phone: [facility] 10-13-2021 11:59-0400 SaO2% (BldA) [Mass fraction] 97 % Helen Sheets DO Work Phone: [facility] Encounters Encounter Date Encounter Type Care Provider Facility Start: 01-09-2025 ambulatory [facility] Fa cility:[facility] Start: 12-12-2024 ambulatory [facility] Fa [facility] Start: 11-18-2024 End: 11-18-2024 ambulatory [facility] Work Phone: [facility] Work Phone: Start: 11-18-2024 End: 11-18-2024 Patient encounter procedure [facility] Susana Bharathi [facility] -Laboratory Karlee Jimenez Start: 11-18-2024 End: 11-18-2024 ambulatory [facility] Facility:[facility] Start: 02-26-2024 End: 02-26-2024 ambulatory [facility] Facility:[facility] Start: 10-23-2023 End: 10-23-2023 ambulatory [facility] Work Phone: Start: 10-23-2023 End: 10-23-2023 Patient encounter procedure [facility] Work Phone: Start: 10-08-2023 Refill Helen C She ets DO Work Phone: [facility] Comment on above: Refill Request Start: 09-06-2023 Refill Helen C She ets DO Work Phone: [facility] Comment on above: Refill Request Start: 08-06-2023 Refill Helen C She ets DO Work Phone: [facility] Comment on above: Refill Request Start: 03-28-2023 Refill Helen C She ets DO Work Phone: [facility] Comment on above: Refill Request Start: 12-21-2022 Refill Helen Alcaraz ets DO Work Phone: [facility] Comment on above: Refill Request Start: 06-14-2022 Refill Helen Alcaraz ets DO Work Phone: [facility] Comment on above: Refill Request Start: 11-11-2021 ambulatory Helen Alcaraz ets DO Work Phone: [facility] Comment on above: Prescriptions Start: 10-13-2021 End: 10-13-2021 Patient encounter procedure Helen Alvarez DO Work Phone: [facility] Comment on above: Hypertension, essent ial (Primary Dx); Hyperlipidemia, mixed; BMI 38.0-38.9,adult; Obesity, Class II, BMI 35-39.9 Start: 09-21-2021 Telephone encounter Helen Alvarez DO Work Phone: [facility] Comment on above: Results Start: 09-20-2021 Telephone encounter Khoa grullon MD Work Phone: [facility] Comment on above: Results Procedures Date Procedure Procedure Detail Performing Clinician Start: 11-18-2024 Prostate specific an tigen measurement Susana Garvin [employer] Work Phone: Comment on above: This test was perfor med using the [employer] tPSA method. Measured values of a patient sample can vary depending on the testing procedure used. PSA values determined on patient samples by different testing procedures cannot be used interchangeably. If there is a change in PSA assays while monitoring therapy, sequential testing should be performed to confirm baseline values. Start: 09-20-2021 Lipid 1996 panel - S carlos enrique or Plasma Helen Sheets DO Work Phone: Start: 04-14-2021 Adult depression scr eening assessment Khoa Hernandez MD Work Phone: Plan of Treatment Date Care Activity Detail Author Start: 09-20-2026 Lipid 1996 panel - S carlos enrique or Plasma Lipid Screening [facility] Start: 09-20-2026 Lipid panel Lipid Screening [facility] Start: 09-20-2026 LIPID SCREEN LIPID SCREEN [facility] Start: 09-20-2026 PROSTATE CANCER SCRE ENING DISCUSSION PROSTATE CANCER SCREENING DISCUSSION [facility] Start: 09-20-2026 Prostate specific an tigen measurement Prostate Cancer Screening Discussion [facility] Start: 09-20-2024 DIABETES SCREEN DIABETES SCREEN [facility] Start: 09-20-2024 Diabetes Screening Diabetes Screenin g [facility] Start: 08-29-2024 PROSTATE CANCER SCRE ENING DISCUSSION PROSTATE CANCER SCREENING DISCUSSION [facility] Start: 03-02-2024 Influenza vaccination Influenz a Vaccine (Season Ended) [facility] Start: 07-02-2023 Behavioral Health Screening Behavioral Health Screening [facility] Start: 07-02-2023 Depression Assessment Depression Ass [facility] Start: 03-11-2023 COLOGUARD (FIT-DNA) COLOGUARD (FIT-D NA) [facility] Start: 03-11-2023 COLORECTAL CANCER SCREENING COLORECTAL CANCER SCREENING [facility] Start: 03-11-2023 Screening for malign ant neoplasm of colon [facility] Start: 03-02-2023 Covid-19 Vaccine ( season) Covid-19 Vaccine () [facility] Start: 03-02-2023 Influenza vaccination [facility] Start: 10-13-2022 ANNUAL PCP TEAM PROGRAM CLERK ERIKA DISEASE VISIT ANNUAL PCP TEAM CHRONIC DISEASE VISIT [facility] Start: 10-13-2022 BP CONTROLLED (<130/80) BP CONTROLLE D (<130/80) [facility] Start: 09-02-2022 HEPATITIS C SCREENING HEPATITIS C [facility] Comment on above: Postponed from 04/19 (Declined at this time) Start: 09-02-2022 HIV SCREENING HIV SCREENING [facility] Comment on above: Postponed from 04/19 (Declined at this time) Start: 07-02-2022 [facility] Start: 04-14-2022 Adult depression screening assessment DEPRESSION SCREENING [facility] Start: 04-14-2022 ANNUAL PCP TEAM PROGRAM CLERK ERIKA DISEASE VISIT ANNUAL PCP TEAM CHRONIC DISEASE VISIT [facility] Start: 04-14-2022 BP CONTROLLED (<130/80) BP CONTROLLE D (<130/80) [facility] Start: 04-14-2022 COVID-19 VACCINE (#1) COVID-19 VACCI NE (#1) [facility] Comment on above: Postponed from 04/19 (Declined at this time) Start: 04-14-2022 COVID-19 VACCINE (1) COVID-19 VACCIN E (1) [facility] Comment on above: Postponed from 04/19 (Declined at this time) Start: 04-14-2022 SHINGRIX VACCINE (1 of 2) SHINGRIX V ACCINE (1 of 2) [facility] Comment on above: Postponed from 04/19 (Declined at this time) Start: 04-14-2022 Urine microalbumin profile DTAP,TDAP,TD (1 - Tdap) [facility] Comment on above: Postponed from 04/19 (Declined at this time) Start: 03-02-2022 Influenza vaccination [facility] Start: 12-29-2021 Influenza vaccination INFLUENZA (#1) [facility] Comment on above: Postponed from 03/02 (Declined at this time) Start: 07-02-2021 DEPRESSION ASSESSMENT DEPRESSION ASS ESSMENT [facility] Start: 2019 RSV Vaccine (1 - 1-d ose 60+ series) RSV Vaccine (1 - 1-dose 60+ series) [facility] Start: 2009 Influenza vaccination LUNG CANCER [facility] Start: 2009 SHINGRIX VACCINE (1 of 2) SHINGRIX V ACCINE (1 of 2) [facility] Start: 2004 Colonoscopy COLONOSCOPY [facility] Start: [address] COLONOGRAPHY [facility] Start: 2004 FECAL OCCULT BLOOD FECAL OCCULT BLOO D [facility] Start: 2004 Screening for malign ant neoplasm of colon [facility] Start: 2004 SIGMOIDOSCOPY SIGMOIDOSCOPY [facility] Start: 1978 Urine microalbumin profile [facility] Start: 1977 HEPATITIS C SCREENING HEPATITIS C [facility] Start: 1977 Hepatitis C screening Hepatitis C [facility] Start: 1977 HIV SCREENING HIV SCREENING [facility] Start: 1977 HIV screening HIV Screening [facility] Start: 1960 COVID-19 VACCINE (#1) COVID-19 VACCI NE (#1) [facility] Payers Date Payer Category Payer Medicare [id number] 2024 Medicare [id number] 2024 Self-pay 2024 Unknown [id number] [facility] [id number] 2022-Present Other [id number] 2013 Private Health Insurance AETNA AETNA CHOICE POS II [id number] 2013-Present [phone] [id number] [place] [address] POS [id number] Private Health Insurance AETNA [facility] [id number] Unknown COMMERCIAL OTHER [id number] Unknown [id number] Unknown [id number] Unknown [id number] Unknown [id number] Social History Date Type Detail Facility Start: 03-02-2020 Tobacco smoking status NHIS Ex-smoker [facility] End: 08-30-2012 History of tobacco use Current smoker [facility] Start: 03-02-2020 End: 08-16-2023 Cigarettes smoked current (pack per day) - Reported 3 [facility] Start: 03-02-2020 Tobacco use and exposure Smokeless tobacco non-user [facility] Start: 04-14-2021 End: 10-13-2021 Alcohol intake Current drinker of alcohol (finding) [facility] Start: 03-02-2020 [facility] Start: 03-02-2020 History SDOH Alcohol Comment social [facility] Start: 1960 Sex Assigned At Not on file [facility] Start: 09-10-2021 End: 10-13-2021 Exposure to SARS-CoV-2 (event) Not sure [facility] End: 08-30-2012 History of tobacco use Cigarette Smoker [facility] Start: 03-02-2020 End: 08-16-2023 Alcohol Use Disorder Identification Test - Consumption [AUDIT-C] [facility] Frequency of Alcohol Consumption Not on file [facility] How often do you hav e 6 or more drinks on 1 occasion? Monthly [facility] Start: 02-29-2020 Gender identity Identifies as male gender (finding) [facility] Start: 02-29-2020 Sexual orientation Heterosexual (finding) [facility] Start: 1960 Sex Assigned At Male [facility] Tobacco smoking stat us COIS Unknown if ever smoked [facility] Work Phone: Medical Equipment Procedure Code Equipment Code Equipment Original Text Equipment Identifier Dates Start: 08-30-2020 Comment on above: Use as instructed, a s covered by insurance Inject 1 Lancet subc utaneously once daily. As covered by insurance Clinical Notes 04-14-2021 to 10-08-2023 Telephone Encounter - Leno Barillas MA - 10/08/2023 1:16 PM EDTTelephone Encounter - Leno Barillas MA - 09/07/2023 7:58 AM ESTTelephone Encounter - Jessica Benson MA - 09/06/2023 11:53 AM EST Note Date & Type Note Facility 10-08-2023 Miscellaneous Notes Formattin g of this note is different from the original. Pharmacy requesting refills as follows: Last Office Visit 10/13/21 NOV none. Last Refill 09/06/23. [facility]23 and he is working on getting new insurance Requested Prescriptions Pending Prescriptions Disp Refills lisinopril (ZESTRIL) 10 mg tablet [Pharmacy Med Name: lisinopril 10 mg tablet] 30 tablet 0 Sig: take 1 tablet by mouth once daily atorvastatin (LIPITOR) 10 mg tablet [Pharmacy Med Name: atorvastatin 10 mg tablet] 30 tablet 0 Sig: take 1 tablet by mouth once daily Please review and advise. Leno Barillas MA documented in this encounter [facility] 09-07-2023 Miscellaneous Notes Formattin g of this note might be different from the original. Patient is informed Leno Barillas MA Please notify pt I sent in his Rx. He may want to contact the [facility] in [place] at [phone]. They may be able to take care of him since he does not have insurance Helen Alvarez DO pharmacy electronically requesting refills as follows: Last seen 10/13/21 . Last refill both 08/07/23 . Patient informed he is due for office visit. States he came for an appointment 08/16 and had to call financial clearance while he was here in the office and they told him he had to pay $742 to be seen that day and he said that was not right to have to pay that much and left. Gave patient financial clearance number to call again and see what they say. Requested Prescriptions Pending Prescriptions Disp Refills atorvastatin (LIPITOR) 10 mg tablet [Pharmacy Med Name: atorvastatin 10 mg tablet] 30 tablet 0 Sig: take 1 tablet by mouth once daily. lisinopril (ZESTRIL) 10 mg tablet [Pharmacy Med Name: lisinopril 10 mg tablet] 30 tablet 0 Sig: take 1 tablet by mouth once daily. Please review and advise. Jessica Benson MA documented in this encounter [facility] 08-07-2023 Miscellaneous Notes Formattin g of this note might be different from the original. Left message informing patient, phone number to reach the office was left for any questions or concerns. Leno Barillas MA Please notify pt he is overdue for f/u appt. I will send in #30 of both his prescriptions, but no more after that Helen Alvarez DO patient electronically requesting refills as follows: Last seen 10/13/21 . Last refill both 03/28/23 . Requested Prescriptions Pending Prescriptions Disp Refills lisinopril (ZESTRIL) 10 mg tablet 90 tablet 0 Sig: Take 1 tablet by mouth once daily. atorvastatin (LIPITOR) 10 mg tablet 90 tablet 0 Sig: Take 1 tablet by mouth once daily. Please review and advise. Jessica Benson MA documented in this encounter [facility] 03-29-2023 Miscellaneous Notes Formattin g of this note might be different from the original. Patient is informed Leno Barillas MA Please notify pt he is overdue for appt Helen Alvarez DO Pharmacy requesting refills: Last office visit 10/13/21. Last refill 12/21/22. Requested Prescriptions Pending Prescriptions Disp Refills atorvastatin (LIPITOR) 10 mg tablet [Pharmacy Med Name: atorvastatin 10 mg tablet] 90 tablet 0 Sig: take 1 tablet by mouth once daily Please review and advise. Aylin Shabazz MA p documented in this encounter [facility] 12-21-2022 Miscellaneous Notes Formattin g of this note is different from the original. pharmacy electronically requesting refills as follows: Last seen 10/13/21 . Last refill both 06/14/22 . Patient informed he is due for office visit and transferred to schedule. Requested Prescriptions Pending Prescriptions Disp Refills lisinopril (ZESTRIL) 10 mg tablet [Pharmacy Med Name: lisinopril 10 mg tablet] 90 tablet 0 Sig: Take 1 tablet by mouth once daily. atorvastatin (LIPITOR) 10 mg tablet [Pharmacy Med Name: atorvastatin 10 mg tablet] 90 tablet 0 Sig: TAKE 1 TABLET BY MOUTH ONCE DAILY Please review and advise. Jessica Benson MA documented in this encounter [facility] 06-14-2022 Miscellaneous Notes Formattin g of this note is different from the original. pharmacy electronically requesting refills as follows: Last seen 10/13/21 . Last refill both 11/11/21 . No future appointments. Requested Prescriptions Pending Prescriptions Disp Refills atorvastatin (LIPITOR) 10 mg tablet [Pharmacy Med Name: atorvastatin 10 mg tablet] 90 tablet 1 Sig: TAKE 1 TABLET BY MOUTH ONCE DAILY lisinopril (ZESTRIL, PRINIVIL) 10 mg tablet [Pharmacy Med Name: lisinopril 10 mg tablet] 90 tablet 1 Sig: Take 1 tablet by mouth once daily. Please review and advise. Jessica Benson MA documented in this encounter [facility] 11-11-2021 Miscellaneous Notes [email or web address] 10/13/2021 Nov 04/14/2022 documented in this encounter [facility] 10-13-2021 Note HNO ID: [id number] Author: Helen Alvarez, DO Service: ? Author Type: Physician Type: Progress Notes Filed: 10/30/2021 4:55 PM Note Text: Subjective The history is provided by the patient. This is a former patient of Dr. Hernandez here to establish with me and for HTN f/u Pt was started on flomax at his last visit with Dr. Hernandez 6 months ago for urinary frequency He did not notice any improvement in the 30 days he took it He does not want to see a urologist at this time He has a history of prediabetes Was checking blood sugars at home, but has stopped Pt started on lipitor 10 mg daily about one month ago ALLERGIES Allergen Reactions - Penicillin Other: See Comments Current Outpatient Medications Medication Sig Dispense Refill - atorvastatin (LIPITOR) 10 mg tablet Take 1 tablet by mouth once daily. 30 tablet 1 - lisinopril (ZESTRIL, PRINIVIL) 10 mg tablet TAKE 1 TABLET BY MOUTH ONCE DAILY 90 tablet 0 - tamsulosin (FLOMAX) 0.4 mg Take 1 capsule by mouth daily at bedtime. 30 capsule 0 - blood sugar diagnostic (FREESTYLE LITE STRIPS) test strip Use as instructed, as covered by insurance 100 Strip 1 - lancets (FREESTYLE LANCETS) 28 gauge Inject 1 Lancet subcutaneously once daily. As covered by insurance 30 Each 0 - LOW-DOSE ASPIRIN ORAL Take by mouth. No current facility-administered medications for this visit. ACTIVE PROBLEM LIST Obesity, Class II, Bmi 35-39.9 Social History Tobacco Use - Smoking status: Former Smoker Packs/day: 3.00 Years: 9.00 Pack years: 27.00 Quit date: 08/30/2012 Years since quittin.1 - Smokeless tobacco: Never Used Vaping Use - Vaping Use: Never used Substance Use Topics - Alcohol use: Yes Comment: social - Drug use: Never Family History Problem Relation Age of Onset - Hypertension Mother - Hypertension Father - Cancer Brother sarcoma? - Hypertension Brother - Hypertension Brother - Hypertension Brother - Diabetes Maternal Aunt Reviewed past medical history, family history and surgeries. All medications and supplements were reviewed with the patient. Review of Systems Constitutional: Negative for chills, diaphoresis, fever, malaise/fatigue and weight loss. HENT: Negative for ear pain and hearing loss. Eyes: Negative for blurred vision and double vision. Respiratory: Negative for cough and shortness of breath. Cardiovascular: Negative for chest pain, palpitations and leg swelling. Gastrointestinal: Negative for constipation, diarrhea and heartburn. Genitourinary: Negative for dysuria and frequency. Musculoskeletal: Negative for back pain, falls, joint pain and myalgias. Skin: Negative for itching and rash. Neurological: Negative for dizziness, weakness and headaches. Endo/Heme/Allergies: Does not bruise/bleed easily. Psychiatric/Behavioral: Negative for depression and substance abuse. The patient does not have insomnia. Objective BP 136/86 (BP Site: Right Arm, BP Position: Sitting, BP Cuff Size: Large Adult) Pulse 108 Temp 36.7 ?C (98 ?F) Resp 16 Ht 177.8 cm (5' 10) Wt 121.5 kg (267 lb 12.8 oz) SpO2 97% BMI 38.43 kg/m? Physical Exam Constitutional: General: He is not in acute distress. Appearance: Normal appearance. He is obese. HENT: Head: Normocephalic and atraumatic. Nose: Nose normal. Mouth/Throat: Mouth: Mucous membranes are moist. Dentition: Normal dentition. Eyes: General: Lids are normal. Extraocular Movements: Extraocular movements intact. Conjunctiva/sclera: Conjunctivae normal. Pupils: Pupils are equal, round, and reactive to light. Neck: Thyroid: No thyroid mass or thyromegaly. Vascular: No carotid bruit. Trachea: Phonation normal. Cardiovascular: Rate and Rhythm: Normal rate and regular rhythm. Heart sounds: Normal heart sounds. No murmur heard. No friction rub. No gallop. Pulmonary: Effort: Pulmonary effort is normal. Breath sounds: Normal breath sounds. No wheezing or rales. Abdominal: General: Bowel sounds are normal. There is no distension. Palpations: Abdomen is soft. There is no mass. Tenderness: There is no abdominal tenderness. Musculoskeletal: General: No swelling or tenderness. Normal range of motion. Cervical back: Normal range of motion and neck supple. No edema. Lymphadenopathy: Cervical: No cervical adenopathy. Skin: General: Skin is warm and dry. Findings: No erythema or rash. Nails: There is no clubbing. Neurological: Mental Status: He is alert and oriented to person, place, and time. Cranial Nerves: No cranial nerve deficit. Motor: Motor function is intact. Coordination: Coordination normal. Gait: Gait is intact. Psychiatric: Attention and Perception: Attention normal. Mood and Affect: Mood and affect normal. Speech: Speech normal. Behavior: Behavior normal. Behavior is cooperative. Thought Content: Thought content normal. Cognition and Memory: Cognition and memory normal. Judg (more content not included)... [facility] 10-13-2021 History of Presen t illness Narrative Subjective The history is provided by the patient. This is a former patient of Dr. Hernandez here to establish with me and for HTN f/u Pt was started on flomax at his last visit with Dr. Hernandez 6 months ago for urinary frequency He did not notice any improvement in the 30 days he took it He does not want to see a urologist at this time He has a history of prediabetes Was checking blood sugars at home, but has stopped Pt started on lipitor 10 mg daily about one month ago ALLERGIES Allergen Reactions Penicillin Other: See Comments Current Outpatient Medications Medication Sig Dispense Refill atorvastatin (LIPITOR) 10 mg tablet Take 1 tablet by mouth once daily. 30 tablet 1 lisinopril (ZESTRIL, PRINIVIL) 10 mg tablet TAKE 1 TABLET BY MOUTH ONCE DAILY 90 tablet 0 tamsulosin (FLOMAX) 0.4 mg Take 1 capsule by mouth daily at bedtime. 30 capsule 0 blood sugar diagnostic (FREESTYLE LITE STRIPS) test strip Use as instructed, as covered by insurance 100 Strip 1 lancets (FREESTYLE LANCETS) 28 gauge Inject 1 Lancet subcutaneously once daily. As covered by insurance 30 Each 0 LOW-DOSE ASPIRIN ORAL Take by mouth. No current facility-administered medications for this visit. ACTIVE PROBLEM LIST Obesity, Class II, Bmi 35-39.9 Social History Tobacco Use Smoking status: Former Smoker Packs/day: 3.00 Years: 9.00 Pack years: 27.00 Quit date: 08/30/2012 Years since quittin.1 Smokeless tobacco: Never Used Vaping Use Vaping Use: Never used Substance Use Topics Alcohol use: Yes Comment: social Drug use: Never Family History Problem Relation Age of Onset Hypertension Mother Hypertension Father Cancer Brother sarcoma? Hypertension Brother Hypertension Brother Hypertension Brother Diabetes Maternal Aunt Reviewed past medical history, family history and surgeries. All medications and supplements were reviewed with the patient. Review of Systems Constitutional: Negative for chills, diaphoresis, fever, malaise/fatigue and weight loss. HENT: Negative for ear pain and hearing loss. Eyes: Negative for blurred vision and double vision. Respiratory: Negative for cough and shortness of breath. Cardiovascular: Negative for chest pain, palpitations and leg swelling. Gastrointestinal: Negative for constipation, diarrhea and heartburn. Genitourinary: Negative for dysuria and frequency. Musculoskeletal: Negative for back pain, falls, joint pain and myalgias. Skin: Negative for itching and rash. Neurological: Negative for dizziness, weakness and headaches. Endo/Heme/Allergies: Does not bruise/bleed easily. Psychiatric/Behavioral: Negative for depression and substance abuse. The patient does not have insomnia. Objective BP 136/86 (BP Site: Right Arm, BP Position: Sitting, BP Cuff Size: Large Adult) Pulse 108 Temp 36.7 C (98 F) Resp 16 Ht 177.8 cm (5' 10) Wt 121.5 kg (267 lb 12.8 oz) SpO2 97% BMI 38.43 kg/m Physical Exam Constitutional: General: He is not in acute distress. Appearance: Normal appearance. He is obese. HENT: Head: Normocephalic and atraumatic. Nose: Nose normal. Mouth/Throat: Mouth: Mucous membranes are moist. Dentition: Normal dentition. Eyes: General: Lids are normal. Extraocular Movements: Extraocular movements intact. Conjunctiva/sclera: Conjunctivae normal. Pupils: Pupils are equal, round, and reactive to light. Neck: Thyroid: No thyroid mass or thyromegaly. Vascular: No carotid bruit. Trachea: Phonation normal. Cardiovascular: Rate and Rhythm: Normal rate and regular rhythm. Heart sounds: Normal heart sounds. No murmur heard. No friction rub. No gallop. Pulmonary: Effort: Pulmonary effort is normal. Breath sounds: Normal breath sounds. No wheezing or rales. Abdominal: General: Bowel sounds are normal. There is no distension. Palpations: Abdomen is soft. There is no mass. Tenderness: There is no abdominal tenderness. Musculoskeletal: General: No swelling or tenderness. Normal range of motion. Cervical back: Normal range of motion and neck supple. No edema. Lymphadenopathy: Cervical: No cervical adenopathy. Skin: General: Skin is warm and dry. Findings: No erythema or rash. Nails: There is no clubbing. Neurological: Mental Status: He is alert and oriented to person, place, and time. Cranial Nerves: No cranial nerve deficit. Motor: Motor function is intact. Coordination: Coordination normal. Gait: Gait is intact. Psychiatric: Attention and Perception: Attention normal. Mood and Affect: Mood and affect normal. Speech: Speech normal. Behavior: Behavior normal. Behavior is cooperative. Thought Content: Thought content normal. Cognition and Memory: Cognition and memory normal. Judgment: Judgment normal. ASSESSMENT/PLAN: 1. Hypertension, essential - ICD9: 401.9, ICD10: I10 (primary diagnosis) Continue lisinopril 10 mg daily 2. Hyperlipidemia, mixed - ICD9: 272.2, ICD10: E78.2 Continue lipitor 10 mg daily 3. BMI 38.0-38.9,adult - ICD9: V85.38, ICD10: Z68.38 Lifestyle modification recommended 4. Obesity, Class II, BMI 35-39.9 - ICD9: 278.00, ICD10: E66.9 Lifestyle modification recommended Helen Alvarez DO documented in this encounter [facility] 09-21-2021 Miscellaneous Notes Patient is informed. Leno Barillas MA ----- Message from Khoa Hernandez MD sent at 09/21/2021 11:00 AM EDT ----- Normal PSA documented in this encounter [facility] 09-20-2021 Miscellaneous Notes Called pt left for him to call the office back for results Shruthi Cobb MA ----- Message from Khoa Hernandez MD sent at 09/20/2021 3:25 PM EDT ----- Patient's glucose is slightly elevated. Continue to monitor diet. His triglycerides and LDL are slightly elevated. Based on his risk score, he should be taking a cholesterol medication. If agreeable, will order. Remaining labs are fairly unremarkable. PSA still pending. documented in this encounter [facility] 09-20-2021 Miscellaneous Notes Patient informed. Leno Barillas MA ----- Message from Khoa Hernandez MD sent at 09/20/2021 11:57 AM EDT ----- Normal CBC. Remaining labs are still pending. documented in this encounter [facility] 04-14-2021 Note HNO ID: [id number] Author: Khoa Hernandez MD Service: ? Author Type: Physician Type: Progress Notes Filed: 04/14/2021 8:39 AM Note Text: This note was created using [employer]. Subjective Garrett Caceres is a 59 year old male. The patient is here for a follow up. The patient isn't due for any blood work. He declined any immunizations. He is up to date on his screening. The patient is a former smoker and does need refills today. The patient reports he is trying to eat healthy. He reports his activity level is moderate. The patient hasn't been monitoring his sugars. He reports he is trying to monitor his sugar and carbohydrate intake. He reports he is checking his blood pressure at home occasionally. He reports it is overall well controlled. He is taking his lisinopril as prescribed without problems. He reports he does try to watch his salt intake. He has concerns about urinary concerns. He reports he has been dribbling. He reports it has been going on for about 6 months. He denies any dysuria. He reports most of the time he does empty fully, but reports he has urinary frequency. He reports he does have some nocturia. He reports his symptoms aren't worsening, they just aren't getting better. He reports when he urinates, it seems to spray everywhere. He reports he was circumcised as a child, but seems to have a lot of foreskin that he has to pull back when urinating. He has no other questions or concerns today. The history is provided by the patient. Hypertension This is a chronic problem. The current episode started more than 1 year ago. The problem is unchanged. The problem is controlled. Pertinent negatives include no chest pain, headaches, palpitations or shortness of breath. There are no associated agents to hypertension. Risk factors for coronary artery disease include male gender, obesity and sedentary lifestyle. Past treatments include ZULEYMA inhibitors. The current treatment provides moderate improvement. Compliance problems include diet. There is no history of kidney disease or CAD/KS. There is no history of chronic renal disease or a thyroid problem. Benign Prostatic Hypertrophy This is a chronic problem. The current episode started more than 1 month ago. The problem is unchanged. Irritative symptoms include frequency and nocturia. Obstructive symptoms include dribbling and a weak stream. Pertinent negatives include no dysuria, genital pain, hematuria, nausea or vomiting. He is not sexually active. ALLERGIES Not on File Current Outpatient Medications Medication Sig Dispense Refill - lisinopril (ZESTRIL, PRINIVIL) 10 mg tablet Take 1 tablet by mouth once daily. 90 tablet 1 - blood sugar diagnostic (FREESTYLE LITE STRIPS) test strip Use as instructed, as covered by insurance 100 Strip 1 - lancets (FREESTYLE LANCETS) 28 gauge Inject 1 Lancet subcutaneously once daily. As covered by insurance 30 Each 0 - LOW-DOSE ASPIRIN ORAL Take by mouth. - tamsulosin (FLOMAX) 0.4 mg Take 1 capsule by mouth daily at bedtime. 30 capsule 0 No current facility-administered medications for this visit. ACTIVE PROBLEM LIST Obesity, Class II, Bmi 35-39.9 Social History Tobacco Use - Smoking status: Former Smoker Packs/day: 3.00 Years: 9.00 Pack years: 27.00 Quit date: 08/30/2012 Years since quittin.6 - Smokeless tobacco: Never Used Vaping Use - Vaping Use: Never used Substance Use Topics - Alcohol use: Yes Comment: social - Drug use: Never Family History Problem Relation Age of Onset - Hypertension Mother - Hypertension Father - Cancer Brother sarcoma? - Hypertension Brother - Hypertension Brother - Hypertension Brother - Diabetes Maternal Aunt Reviewed past medical and surgical history. Review of Systems Constitutional: Negative for fever and unexpected weight change. HENT: Negative for congestion, hearing loss and sore throat. Eyes: Negative for visual disturbance. Respiratory: Negative for cough, chest tightness and shortness of breath. Cardiovascular: Negative for chest pain, palpitations and leg swelling. Gastrointestinal: Negative for abdominal pain, constipation, diarrhea, nausea and vomiting. Genitourinary: Positive for frequency and nocturia. Negative for difficulty urinating, discharge, dysuria, hematuria and testicular pain. Musculoskeletal: Negative for gait problem. Skin: Negative for rash. Neurological: Positive for numbness (in right ring finger, rarely). Negative for dizziness, syncope, weakness, light-headedness and headaches. Psychiatric/Behavioral: Negative for dysphoric mood, self-injury and suicidal ideas. Objective BP 122/78 (BP Site: Left Arm, BP Position: Sitting, BP Cuff Size: Large Adult) Pulse 67 Temp 36.5 ?C (97.7 ?F) Resp 18 Ht 177.8 cm (5' 10) Wt 114.3 kg (252 lb) SpO2 95% BMI 36.16 kg/m? Physical Exam Vitals and nursing note reviewed. Constitutional: General: (more content not included)... [facility] Evaluation note Diagnosis Hypertension, essential- Primary Unspecified essential hypertension Hyperlipidemia, mixed Mixed hyperlipidemia BMI 38.0-38.9,adult Body Mass Index 38.0-38.9, adult Obesity, Class II, BMI 35-39.9 Obesity, unspecified [facility] Diagnosis Essential hypertension Unspecified essential hypertension [facility]* Diagnosis Essential hypertension Unspecified essential hypertension documented in this encounter [facility] note* Diagnosis Essential hypertension Unspecified essential hypertension documented in this encounter [facility] note* Diagnosis Essential hypertension Unspecified essential hypertension documented in this encounter [facility] note* Diagnosis Essential hypertension Unspecified essential hypertension documented in this encounter [facility] note* Diagnosis Essential hypertension Unspecified essential hypertension documented in this encounter [facility] noteNo assessment information availableWMercy Health St[facility] Work Phone: Reason for referral (narrative)No reason for referral information availableWMercy Health St[facility] Work Phone: Summary Purpose Family History No Family History Records FoundNo Family History Records FoundNo Family History Records Found Advance Directives No Advanced Directives Records FoundNo Advanced Directives Records FoundNo Advanced Directives Records Found Additional Source Comments Source Comments (unrecognize d section and content) In the event this informatio n is protected by the Federal Confidentiality of Alcohol and Drug Abuse Patient Records regulations: The Federal rules restrict any use of the information to criminally investigate or prosecute any alcohol or drug abuse patient.[facility] the event this information is protected by the Federal Confidentiality of Alcohol and Drug Abuse Patient Records regulations: The Federal rules restrict any use of the information to criminally investigate or prosecute any alcohol or drug abuse patient.[facility] the event this information is protected by the Federal Confidentiality of Alcohol and Drug Abuse Patient Records regulations: The Federal rules restrict any use of the information to criminally investigate or prosecute any alcohol or drug abuse patient.[facility] the event this information is protected by the Federal Confidentiality of Alcohol and Drug Abuse Patient Records regulations: The Federal rules restrict any use of the information to criminally investigate or prosecute any alcohol or drug abuse patient.[facility] the event this information is protected by the Federal Confidentiality of Alcohol and Drug Abuse Patient Records regulations: The Federal rules restrict any use of the information to criminally investigate or prosecute any alcohol or drug abuse patient.[facility] the event this information is protected by the Federal Confidentiality of Alcohol and Drug Abuse Patient Records regulations: The Federal rules restrict any use of the information to criminally investigate or prosecute any alcohol or drug abuse patient.[facility] the event this information is protected by the Federal Confidentiality of Alcohol and Drug Abuse Patient Records regulations: The Federal rules restrict any use of the information to criminally investigate or prosecute any alcohol or drug abuse patient.[facility] the event this information is protected by the Federal Confidentiality of Alcohol and Drug Abuse Patient Records regulations: The Federal rules restrict any use of the information to criminally investigate or prosecute any alcohol or drug abuse patient.[facility] the event this information is protected by the Federal Confidentiality of Alcohol and Drug Abuse Patient Records regulations: The Federal rules restrict any use of the information to criminally investigate or prosecute any alcohol or drug abuse patient.[facility] the event this information is protected by the Federal Confidentiality of Alcohol and Drug Abuse Patient Records regulations: The Federal rules restrict any use of the information to criminally investigate or prosecute any alcohol or drug abuse patient.[facility] Reason for Visit (unrecogniz ed section and content) Reason Comments Results Reason Comments Hypertension 6 month follow up Establish Care former Dr. David peterson Reason Comments Refill Request Reason Onset Date Comments Refill Request 08/06/2023 Care Teams (unrecognized sec tion and content) Newspaper Delivery Counselor Relationship Specialty Start Date End Date Antonio, Helen Stephens DO [address] [place] [address] PCP - General Family Practice 08/18/21 Newspaper Delivery Counselor Relationship Specialty Start Date End Date Antonio Helen Stephens DO [address] [facility] [place] [phone] PCP - General Family Practice 08/18/21 Newspaper Delivery Counselor Relationship Specialty Start Date End Date Antonio Helen Stephens DO [address] [facility] [place] [phone] PCP - General Family Practice 08/18/21 Newspaper Delivery Counselor Relationship Specialty Start Date End Date Antonio Helen Stephens DO [address] [facility] [place] [phone] PCP - General Family Medicine 08/18/21 Newspaper Delivery Counselor Relationship Specialty Start Date End Date Antonio Helen Stephens DO [address] [facility] [place] [phone] PCP - General Family Medicine 08/18/21 Newspaper Delivery Counselor Relationship Specialty Start Date End Date Antonio Helen Stephens DO [address] [facility], [place] [phone] PCP - General Family Medicine 08/18/21 Newspaper Delivery Counselor Relationship Specialty Start Date End Date Antonio Helen Stephens DO [address] [facility], [place] [phone] PCP - General Family Medicine 08/18/21 Team Status: Active Member Role Status Dates Susana COPELAND, [employer] Primary Care Provider Activ e Team Status: Inactive Member Role Status Dates Susana COPELAND, [employer]-C Primary Care Provider, Attending Provider, Referring Provider Active Team Status: Inactive Member Role Status Dates Susana COPELAND, [employer]PER[employer]-C Primary Care Provider Activ e Start: November 18, 2024 End: November 18, 2024 Susana COPELAND, [employer]PER[employer]-C Attending Provider Active Start: November 18, 2024 End: November 18, 2024 (unrecognized sect ion and content) No Status Records FoundNo Status Records FoundNo Status Records Found INFORMATION SOURCE (unrecogn ized section and content) DATE CREATED AUTHOR 10/14/2021 [facility] DATE CREATED AUTHOR AUTHOR'S ORGANIZ ATION 11/01/2021 [facility] DATE CREATED AUTHOR AUTHOR'S ORGANIZ ATION 12/30/2024 [facility] Goals (unrecognized section and content) Goals may be documented in a n alternate sectionGoals may be documented in an alternate section FOR RECORDS PERTAINING TO PATIENTS WHO ARE OR HAVE BEEN ENROLLED IN A CHEMICAL DEPENDENCY/SUBSTANCEABUSE PROGRAM, SOME INFORMATION MAY BE OMITTED. This clinical summary was aggregated from multiple sources. Caution should be exercised in using it in the provision of clinical care. This summary normalizes information from multiple sources, and as a consequence, information in this document may materially change the coding, format and clinical context of patient data. In addition, data may be omitted in some cases. CLINICAL DECISIONS SHOULD BE BASED ON THE PRIMARY CLINICAL RECORDS. [facility] [employer] provides no warranty or guarantee of the accuracy or completeness of information in this document.
[2025-01-09] MEDS: Lactated Ringers 1,000 ML 15 ML IV (06:41)
--- NOTE | 2025-01-09 06:44 | EKG12_ITS ---
Test Reason : IRR HB Blood Pressure : */* mmHG Vent. Rate : 66 BPM Atrial Rate : 66 BPM P-R Int : 154 ms QRS Dur : 100 ms QT Int : 408 ms P-R-T Axes : 68 31 35 degrees QTcB Int : 427 ms Sinus rhythm with occasional Premature ventricular complexes Otherwise normal ECG No previous ECGs available Confirmed by Luan Ayoub ([id number]), senior technical editor JAYDE VIGIL ([id number]) on 01/14/2025 11:38:02 AM Referred By: Susana Garvin Confirmed By: Luan Ayoub
--- NOTE | 2025-01-09 07:19 | H&P.OPEN ---
HPI - General HPI Narrative DANGELO CACERES, is a 64 M who presents for screening colonoscopy. He has never had a colonoscopy in the past. He had a Cologuard about 8 years ago which was negative. He denies abdominal pain or blood in the stool. He has no family history of colon cancer. [facility] Medical History (Updated 01/09/25 @ 07:[address] Alex Delarosa MD) Wears dentures High cholesterol Former smoker Hypertension History of stress test Home Medications ?Medication ?Instructions ?Recorded ?Last Taken ?Type aspirin 81 mg tablet 81 mg PO QDAY 12/12/24 01/04/25 History atorvastatin 10 mg tablet (Lipitor) 10 mg PO QHS 12/12/24 01/08/25 History lisinopril 20 mg tablet 20 mg PO QDAY 12/12/24 01/08/25 History metformin 1,000 mg tablet 1,000 mg PO BID 12/12/24 01/08/25 History Allergy/AdvReac Type Severity Reaction Status Date / Time Penicillins (PCN) Allergy Severe Other Verified 01/09/25 06:22 Surgical History H/O removal of cyst Social History Smoking Status: Former smoker Past Medical/Surgical History Planned Operation Planned Operative Procedure(s): COLONOSCOPY Previous Hospitalizations/Surgeries HX Hospitalizations: No Any Problems With Anesthesia: No You/Your Family Experience Fever (Hyperthermia) With Anes: No Cholinesterase deficiency: No Cardiovascular Hx Hypertension: Yes (CONTROLLED WITH MEDS) Respiratory Hx Sleep Apnea: No Hx Respiratory Tract Infection/Cold (presently): No Do You Snore Loudly (louder than talking or can be heard): Yes Do You Often Feel Tired/ Fatigued/ Sleepy Dring Daytime?: No Has Anyone Observed You Stop Breathing During Sleep?: No Result (for STOP score): Positive Smoking Status: Former smoker Neurological Does patient have nerve stimulator: No Miscellaneous Recent Exposure to Contagious Disease: No Allergies Penicillins (PCN) Allergy (Severe, Verified 01/09/25 06:22) Other Discharge After D/C, Where Do you Plan to Go: Return Home Vital Signs Vital Signs Vital Signs: 01/09/25 06:38 01/09/25 06:38 Temperature 98 F Temperature Source Temporal Pulse Rate 65 Respiratory Rate 16 Respiratory Pattern Normal Blood Pressure 155/73 H Blood Pressure Mean 100 Blood Pressure Source Monitor Blood Pressure Position Semi-Fowlers Blood Pressure Location Right Arm Pulse Ox 98 Oxygen Delivery Method Room Air Weight Weight: 242 lb 8.136 oz Body Mass Index (BMI) 35.8 Physical Exam Const alert and oriented x3 HEENT normocephalic Eyes PERRL Resp normal respiratory effort and normal air movement Cardio regular rate and regular rhythm GI soft to palpation, non-tender and non-distended Extremity normal to inspection Assessment & Plan Assessment/Plan (1) Screen for colon cancer: PLAN: I explained endoscopy in detail to the patient. I explained the risks including but not limited to stroke or heart attack with anesthesia, perforation of the GI tract, bleeding, infection. I explained that any of these could necessitate further emergency surgery. The patient understands and all questions were answered sufficiently. The patient wishes to proceed with procedure. Alex Delarosa MD Pager: [facility] [address] [place] [address], [address] [place] [address] Office: Surgery Risks - Colonoscopy Risks Include but are not Limited To: Risks include but are not limited to: Bleeding, perforation requiring further surgery, inability to complete colonoscopy requiring barium enema.
--- NOTE | 2025-01-09 07:26 | PRE.ANES_ITS ---
ASA Classification* ASA Classification ASA Classification: 2 Assessment & Plan Anesthesia* Anesthesia Assessment Anesthesia Assessment: Discussed sedation and/or anesthesia options, risks, benefits, and alternatives with patient/parents/legal guardian/POA. Questions invited. The patient/parents/legal guardian/POA seems to understand and agrees to proceed with anesthesia plan. Reviewed the physical assessment, medical history, allergy history and patient home medications list prior to surgery/procedure/anesthetic and documented any changes. Performed airway and anesthesia risk assessments. Anesthesia Type Anesthesia Type: MAC Anesthesia Focused Assessment* Temperature: 98 F Pulse Rate: 65 Blood Pressure: 155/73 Respiratory Rate: 16 Pulse Ox: 98 Airway Assessment Mouth opens: >3 cm Mallampati Score: II Labs Anesthesia Preop lab: CBC WBC 5.4 K/mm3 (4.4-11.0) 11/18/24 10:02 11/18/24 RBC 4.76 M/mm3 (4.6-6.2) 11/18/24 10:02 11/18/24 Hgb 14.6 g/dL (13.0-16.5) 11/18/24 10:02 11/18/24 Hct 42.5 % (40-54) 11/18/24 10:02 11/18/24 Plt Count 235 K/mm3 (150-450) 11/18/24 10:02 11/18/24 CHEMISTRY Potassium 4.5 mmol/L (3.3-5.1) 11/18/24 10:02 11/18/24 Sodium 138 mmol/L (133-145) 11/18/24 10:02 11/18/24 BUN 19 mg/dL (4-19) 11/18/24 10:02 11/18/24 Creatinine 0.78 mg/dL (0.70-1.20) 11/18/24 10:02 11/18/24 Glucose 152 mg/dL (70-99) H 11/18/24 10:02 11/18/24 TSH 1.370 uIU/mL (0.358-3.740) 02/26/24 09:47 01/31 01/22 COAG Pre-Assessment Diagnosis/Proposed Procedure Planned Operative Procedure(s): COLONOSCOPY Anesthesia History Anesthesia History - reconciliation coordinator: Anesthesia History - reconciliation coordinator Hx Hospitalization No 01/09/25 07:20 Any Problems With Anesthesia No 01/09/25 07:20 Cholinesterase deficiency No 01/09/25 07:20 You/Your Family Experience No 01/09/25 07:20 fever (hyperthermia) with Relationship Recent Exposure to Contagious No 01/09/25 07:20 Disease Does patient have nerve No 01/09/25 07:20 stimulator Patient instructed to have device shut off --Does patient have Pacemaker No 01/09/25 06:38 or ICD? When Was Last Pacemaker Check QUESTION #4 FULL TEXT: You/Your Family Experience fever (hyperthermia) with Anesthesia Last Oral Intake Last Oral intake: Last Oral Intake NPO since 00:00 01/09/25 06:38 Meds taken in AM with sips of water? Meds patient instructed to take am of surgery PONV PONV - reconciliation coordinator: PONV - reconciliation coordinator Female No 01/08/25 09:44 HX of Motion Sickness No 01/08/25 09:44 HX of N/V After Surgery No 01/08/25 09:44 Non-Smoker Yes 01/08/25 09:44 Duration of Surgery greater No 01/08/25 09:44 than 60 minutes Number of Risk Factors 1 01/08/25 09:44 PONV Score Low Risk 01/08/25 09:44 Height & Weight Height & Weight: Anesthesia: Height & Weight Height 5 ft 9 in 01/09/25 06:38 Weight: 110 kg 01/09/25 06:38 Body Mass Index (BMI) 35.8 01/09/25 06:38 Respiratory Assessment Respiratory Assessment - reconciliation coordinator: Respiratory Tract Infection Hx - reconciliation coordinator Hx Respiratory Tract Infection No 01/09/25 07:20 STOP Sleep Apnea STOP Sleep Apnea - reconciliation coordinator: STOP Sleep Apnea - reconciliation coordinator Hx Hypertension Yes: CONTROLLED WITH MEDS 01/09/25 07:20 Hx Sleep Apnea No 01/09/25 07:20 CPAP BIPAP Do you snore loudly (louder Yes 01/09/25 07:20 than talking or can be heard Do you often feel tired/ No 01/09/25 07:20 fatigued/ sleepy during daytime? Has anyone observed you stop No 01/09/25 07:20 breathing during sleep? STOP Results Positive 01/09/25 07:20 QUESTION #5 FULL TEXT : Do you snore loudly (louder than talking or can be heard through closed doors)? 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 Specify any problems Hx of Preganancy in last 3 N/A 01/08/25 09:44 Months Nurse Filling Out Transfusion [email or web address] 01/08/25 09:44 & Questions: Date: 01/08/25 01/08/25 09:44 Time: 09:47 01/08/25 09:44 Patient unable to answer at this time (ie. confused, unrespo /Reproduction History /Reproductive History - reconciliation coordinator: /Reproductive Hx- reconciliation coordinator Hx Now Gestational Age (in weeks): EDC: Hx Hx Para Hx Section SAB Active Medications Active Medications: Current Medications Generic Name Dose Route Start Last Admin Trade Name Freq PRN Reason Stop Dose Admin Lactated Ringer's 1,000 mls @ 15 mls/hr 01/09/25 06:30 01/09/25 06:41 IV 15 mls/hr .Q48H CAROLYN Administration PFSH Medical History Wears dentures High cholesterol Former smoker Hypertension History of stress test Home Medications ?Medication ?Instructions ?Recorded ?Last Taken ?Type aspirin 81 mg tablet 81 mg PO QDAY 12/12/2401/04 History atorvastatin 10 mg tablet (Lipitor) 10 mg PO QHS 12/1201/08/25 History lisinopril 20 mg tablet 20 mg PO QDAY 12/12/2401/08 History metformin 1,000 mg tablet 1,000 mg PO BID 12/12/2404/25 History Allergy/AdvReac Type Severity Reaction Status Date / Time Penicillins (PCN) Allergy Severe Other Verified 01/09/25 06:22 Surgical History H/O removal of cyst Social History Smoking Status: Former smoker Review of Systems (Anesthesia) ROS Narrative System reviewed and no additional complaints, except as documented.
--- NOTE | 2025-01-09 07:52 | OP.CCLET_ITS ---
01/09/2025 Susana Garvin [facility], [employer] Re : Colonoscopy procedure for Garrett Garvin This procedure was performed on Thursday, January 09, 2025. My impressions and recommendations are as follows: Impressions : - The entire examined colon is normal on direct and retroflexion views. - No specimens collected. Recommendations : - Discharge patient to home. - Resume previous diet. - Continue present medications. - Repeat colonoscopy in 10 years for screening purposes. My findings are described in the full procedure note, which is enclosed. If I can be of further assistance, please feel free to contact me at Doctor phone number(s): , Work: . Sincerely, Alex Delarosa MD 01/09/2025 7:51:56 AM This report has been signed electronically.
--- NOTE | 2025-01-09 07:52 | OP.COLON_ITS ---
Patient Name: Garrett Lind Procedure Date: 01/09/2025 7:17 AM Date of : 1960 Age: 64 Procedure: Colonoscopy Indications: Screening for colorectal malignant neoplasm Providers: Alex Delarosa MD Referring MD: Susana Garvin [facility], [employer] Medicines: Propofol per Anesthesia Patient Profile: This is a 64 year old male. Refer to note in patient chart for documentation of history and physical. Last Colonoscopy: none. The patient's first colonoscopy is today. Complications: No immediate complications. Procedure: Pre-Anesthesia Assessment: - Prior to the procedure, a History and Physical was performed, and patient medications and allergies were reviewed. The patient's tolerance of previous anesthesia was also reviewed. The risks and benefits of the procedure and the sedation options and risks were discussed with the patient. All questions were answered, and informed consent was obtained. Prior Anticoagulants: The patient has taken no anticoagulant or antiplatelet agents. After reviewing the risks and benefits, the patient was deemed in satisfactory condition to undergo the procedure. After I obtained informed consent, the scope was passed under direct vision. Throughout the procedure, the patient's blood pressure, pulse, and oxygen saturations were monitored continuously. The colonoscope was introduced through the anus and advanced to the cecum, identified by appendiceal orifice and ileocecal valve. The colonoscopy was performed without difficulty. The patient tolerated the procedure well. The quality of the bowel preparation was good. The ileocecal valve, appendiceal orifice, and rectum were photographed. Scope In: 7:35:54 AM Scope Withdrawal Time 0 hours 6 minutes 5 seconds Scope Out: 7:48:58 AM Total Procedure Duration Time 0 hours 13 minutes 4 seconds Findings: The entire examined colon appeared normal on direct and retroflexion views. Impression: - The entire examined colon is normal on direct and retroflexion views. - No specimens collected. Recommendation: - Discharge patient to home. - Resume previous diet. - Continue present medications. - Repeat colonoscopy in 10 years for screening purposes. Procedure Code(s): --- Professional --- 94363, Colonoscopy, flexible; diagnostic, including collection of specimen(s) by brushing or washing, when performed (separate procedure) Diagnosis Code(s): --- Professional --- Z12.11, Encounter for screening for malignant neoplasm of colon CPT copyright 2021 [employer]. All rights reserved. The codes documented in this report are preliminary and upon sergeant of officers review may be revised to meet current compliance requirements. Alex Delarosa MD 01/09/2025 7:51:56 AM This report has been signed electronically. Number of Addenda: 0 Note Initiated On: 01/09/2025 7:17 AM
--- NOTE | 2025-01-09 07:59 | PCM.POST.ANE ---
Anesthesia: Postop Eval I Current Vital Signs Temperature: 98.6 F Pulse Rate: 67 Blood Pressure: 116/68 Respiratory Rate: 16 Pulse Ox: 92 Oxygen Delivery Method: Room Air Assessment Airway patent: Yes Spontaneous unlabored respirations: Yes Mental status: Asleep nausea: No Vomiting: No Anesthesia Complication: No Fluid Hydration Crystalloid volume administer (ml): 500 Total IV fluid infused: 500 Progress Note Anesthesia document: Postop Eval 1 completed: Yes
--- NOTE | 2025-01-09 11:43 | PCM.POSTANE2 ---
Anesthesia Postop Eval I Sum Postop Eval Completion status Anesthesia document: Postop Eval 1 completed: Yes Anesthesia Postop Eval I Summary Anesthesia Postop Eval I Summary: Anesthesia Postop Eval I: Assessment Summary Airway patent Yes 01/09/25 08:00 [email or web address] Spontaneous unlabored Yes 01/09/25 08:00 [email or web address] respirations Mental status Asleep 01/09/25 08:00 [email or web address] nausea No 01/09/25 08:00 [email or web address] Vomiting No 01/09/25 08:00 [email or web address] Anesthesia Postop Eval I: Fluid Summary Crystalloid volume administer 500 01/09/25 08:00 [email or web address] (ml) Colloids volume administered ( ml) Blood Product volume administered (ml) Total IV fluid infused 500 01/09/25 08:00 [email or web address] Anesthesia Postop Eval I: Summary Notes Anesthesia Complication No 01/09/25 08:00 [email or web address] Anesthesia Complication Comment: Post-operative progress note Anesthesia: Postop Eval II Evaluation Mental status: Awake Pain Level: 0 nausea: No Vomiting: No
== END 2025-01-09 08:38 | disposition home or self-care (01) ==
LOC: EN 06:14 → AC 06:16
PROVIDERS: PCP Nurse Practitioner Family; Referring Provider Nurse Practitioner Family; Visit Provider Surgery
PROC: 0DJD8ZZ Inspection of Lower Intestinal Tract, Via Natural or Artificial Opening Endoscopic (ICD-10-PCS; CPT 45378; principal; 2025-01-09 07:25)
DX: Z12.11 Encounter for screening for malignant neoplasm of colon (principal); I10 Essential (primary) hypertension; E78.00 Pure hypercholesterolemia, unspecified; Z79.82 Long term (current) use of aspirin; Z79.899 Other long term (current) drug therapy; Z87.891 Personal history of nicotine dependence
CPT/HCPCS: G0121; 93005; J2405

== ENCOUNTER → 2025-02-03 | Outpatient (CLI) | payer MEDICARE, SELFPAY ==
--- OUTSIDE RECORDS SUMMARY | 2025-02-03 18:16 | XMS RPT_ITS | CCD ---
Author Organization [facility] Care Team Providers Care Armhole Feller Handstitching Machine Name Role Phone Sheets Nel MCKEE Primary Care Provider [phone] Bharathi CARD BOXER-C, Susana Primary Care Provider Bharathi CARD BOXER-C, Susana Attending Provider Dee Hart Attending Provider Unavailable Bharathi CARD BOXER-C, Susana Referring Provider Isaura CUADRA, Dr. Johnson Attending Provider [phone] Isaura CUADRA, Dr. Johnson Other Provider Alex Delarosa Consulting Unavailable Bharathi VSC, Susana Primary Care Unavailabl e Bharathi VSC, Susana Referring Unavailabl e CainabrAlex olivares Attending Unavailable Bharathi VSC, Susana Primary Care Unavailabl e Bharathi VSC, Susana Referring Unavailabl e Alex Delarosa Attending Unavailable Bharathi VSC, Susana Attending Unavailabl e Bharathi VSC, Susana Primary Care Unavailabl e Bharathi VSC, Susana Attending Unavailabl e Bharathi VSC, Susana Primary Care Unavailabl e Beam, [place] Referring Unavailable Bharathi VSC, Susana Primary Care Unavailabl e Beam VSC Zebualex Attending Unavailable Bharathi VSC, Susana Primary Care Unavailabl e Dee Hart Attending Unavailable Luan Ayoub Attending Unavailable Bharathi VSC, [facility] Primary Care Unavailabl e Alex Delarosa Referring Unavailable Allergies Allergy Classification Reported Allergen(s) Allergy Type Date of Onset Reaction(s) Facility (8 sources) Penicillin Drug Allergy 2 Other: See Comments [facility] (1 source) Penicillins Allergy to substance 5 Other [facility] (1 source) Penicillins Drug allergy (disorder) 5 [facility] Repository Medications Current Medications Medication Drug Class(es) Dates Sig (Normalized) Sig (Original) aspirin 81 mg oral tablet (1 source) Platelet Aggregation Inhibitor, Nonsteroidal Anti-inflammatory Drug Start: 12-12-2024 take 1 tablet by mouth once daily Aspirin 81 mg tablet Active 81 mg PO daily December 12, 2024 12:00am atorvastatin 10 mg oral tablet (16 sources) HMG-CoA Reductase Inhibitor Start: 12-12-2024 take 1 tablet by mouth at bedtime Atorvastatin (Lipitor) 10 mg tablet Active 10 mg PO AT BEDTIME December 12, 2024 12:00am Start: 09-21-2021 End: 10-08-2023 take 1 tablet by mouth once daily atorvastatin (LIPITOR) 10 mg tablet take 1 tablet by mouth once daily 30 tablet 0 10/08/2023 Active Comment on above: Take 1 tablet by mechelle th once daily. TAKE 1 TABLET BY MECHELLE TH ONCE DAILY lisinopril 20 mg oral tablet (18 sources) Angiotensin Converting Enzyme Inhibitor Start: 12-12-2024 take 1 tablet by mouth once daily Lisinopril 20 mg tablet Active 20 mg PO daily December 12, 2024 12:00am Start: 09-02-2021 End: 10-08-2023 take 1 tablet by mouth once daily lisinopril (ZESTRIL) 10 mg tablet Indications: Essential hypertension take 1 tablet by mouth once daily 30 tablet 0 10/08/2023 Active Comment on above: TAKE 1 TABLET BY MECHELLE TH ONCE DAILY Take 1 tablet by mechelle th once daily. metFORMIN hydrochloride 1000 mg oral tablet (1 source) Biguanide Start: 12-12-2024 take 1 tablet by mouth twice daily Metformin 1,000 mg tablet Active 1000 mg PO TWICE A DAY December 12, 2024 12:00am Completed/Discontinued Medications Medication Drug Class(es) Dates Sig (Normalized) Sig (Original) 0.5 ml dulaglutide 1.5 mg/ml auto-injector (1 source) GLP-1 Receptor Agonist Start: 12-12-2024 End: 01-08-2025 Dulaglutide (Trulicity) 0.75 mg/0.5 mL pen injector Discontinued 0.75 mg SC EVERY WEEK December 12, 2024 12:00am January 08, 2025 9:43am LOW-DOSE ASPIRIN ORAL (11 sources) LOW-DOSE ASPIRIN [...] Comment on above: Take 1 capsule by [facility] daily at bedtime. Problems Problem Classification Problem [...] [Body mass index (BMI) 38.0-38.9, adult] Chronic Other screening for suspected conditions (not mental disorders or infectious disease) (4 sources) Patient encounter status; Translations: [Encounter for screening for malignant neoplasm of colon] Onset: 01-30-2025 01-09-2025 Episodic Residual codes; unclassified (1 source) Hypersomnia, unspecified; Translations: [Hypersomnia, unspecified] Onset: 01-27-2025 Chronic Results Test Name Value Interpretation Reference Range Facility 12 Lead EKGon 01-09-2025 12 Lead EKG [facility] Cardiovascular Services [address] [place] [address] 12 Lead EKG 01/09/25 0653 MR#: [id number] Acct: [id number] Name: GARRETT CACERES Rep #: [id number] : 1960 64 From: Luan Ayoub MD Attending Dr: Dr. Alex Delarosa MD [place] [facility] [place]: Lucas Mcwilliams MD Date: 01/09/25 Location: EN Sex: M C Admitted: Test Reason : IRR HB Blood Pressure : */* mmHG Vent. Rate : 66 BPM Atrial Rate : 66 BPM P-R Int : 154 ms QRS Dur : 100 ms QT Int : 408 ms P-R-T Axes : 68 31 35 degrees QTcB Int : 427 ms Sinus rhythm with occasional Premature ventricular complexes Otherwise normal ECG No previous ECGs available Confirmed by Luan Ayoub ([id number]), videotape editor JAYDE VIGIL ([id number]) on 01/14/2025 11:38:02 AM Referred By: Susana Garvin Confirmed By: Luan Ayoub 01/14/25 1138 Date Luan Ayoub MD CC: VSC CARD BOXER-C Susana Garvin; Dr. Alex Delarosa MD; Dr. Lucas Mcwilliams MD Signed Normal [facility] Colonoscopy Reporton 025 Colonoscopy Report [facility] Medical Records Department [address] [place] [address] Colonoscopy Report MR#: [id number] Acct: [id number] Name: GARRETT CACERES Rep #: [id number] : 1960 64 From: Alex Delarosa MD PCP: DINORAH Fall, JUSTINOC Status[place] Patient Name: Garrett Caceres Procedure Date: 01/09/2025 7:17 AM Date of : 1960 Age: 64 Procedure: Colonoscopy Indications: Screening for colorectal malignant neoplasm Providers: Alex Delarosa MD Referring MD: Susana Copeland, Director Of Market Analysis-c Medicines: Propofol per Anesthesia Patient Profile: This is a 64 year old male. Refer to note in patient chart for documentation of history and physical. Last Colonoscopy: none. The patient's first colonoscopy is today. Complications: No immediate complications. Procedure: Pre-Anesthesia Assessment: - Prior to the procedure, a History and Physical was performed, and patient medications and allergies were reviewed. The patient's tolerance of previous anesthesia was also reviewed. The risks and benefits of the procedure and the sedation options and risks were discussed with the patient. All questions were answered, and informed consent was obtained. Prior Anticoagulants: The patient has taken no anticoagulant or antiplatelet agents. After reviewing the risks and benefits, the patient was deemed in satisfactory condition to undergo the procedure. After I obtained informed consent, the scope was passed under direct vision. Throughout the procedure, the patient's blood pressure, pulse, and oxygen saturations were monitored continuously. The colonoscope was introduced through the anus and advanced to the cecum, identified by appendiceal orifice and ileocecal valve. The colonoscopy was performed without difficulty. The patient tolerated the procedure well. The quality of the bowel preparation was good. The ileocecal valve, appendiceal orifice, and rectum were photographed. Scope In: 7:35:54 AM Scope Withdrawal Time 0 hours 6 minutes 5 seconds Scope Out: 7:48:58 AM Total Procedure Duration Time 0 hours 13 minutes 4 seconds Findings: The entire examined colon appeared normal on direct and retroflexion views. Impression: - The entire examined colon is normal on direct and retroflexion views. - No specimens collected. Recommendation: - Discharge patient to home. - Resume previous diet. - Continue present medications. - Repeat colonoscopy in 10 years for screening purposes. Procedure Code(s): --- Professional --- 28946, Colonoscopy, flexible; diagnostic, including collection of specimen(s) by brushing or washing, when performed (separate procedure) Diagnosis Code(s): --- Professional --- Z12.11, Encounter for screening for malignant neoplasm of colon CPT copyright 2021 [employer]. All rights reserved. The codes documented in this report are preliminary and upon foot gatherer review may be revised to meet current compliance requirements. Alex Delarosa MD 01/09/2025 7:51:56 AM This report has been signed electronically. Number of Addenda: 0 Note Initiated On: 01/09/2025 7:17 AM 01/09/25 0752 Date Alex Delarosa MD Cosign Signature: Date (if indicated) CC: DINORAH CARD BOXER-C Susana Garvin; Dr. Alex Delarosa MD Date Dictated: 01/09/25716 Date Transcribed: Paint Specialist: DARIEL Signed [facility] MR/POSTOP.ANEon 01-09-2025 MR/POSTOP.[facility] Medical Records Department [address] [place] [address] Anesthesia Postop Eval I 01/09/25 0759 MR#: [id number] Acct: [id number] Name: GARRETT CACERES Rep #: [id number] : 1960 64 From: Dallin Carrera PCP: DINORAH Fall, CARD BOXER-C Status:REG SDC Y Race: C Location: Anesthesia: Postop Eval I Current Vital Signs Temperature: 98.6 F Pulse Rate: 67 Blood Pressure: 116/68 Respiratory Rate: 16 Pulse Ox: 92 Oxygen Delivery Method: Room Air Assessment Airway patent: Yes Spontaneous unlabored respirations: Yes Mental status: Asleep nausea: No Vomiting: No Anesthesia Complication: No Fluid Hydration Crystalloid volume administer (ml): 500 Total IV fluid infused: 500 Progress Note Anesthesia document: Postop Eval 1 completed: Yes 01/09/25 0800 Date Dallin Paulino Signature: Date CC: Signed [facility] MR/[id number] 01-09-2025 MR/POSTOPAN2 [facility] Medical Records Department [address] [place] [address] Anesthesia Postop Eval II 01/09/25 1143 MR#: [id number] Acct: [id number] Name: NICKIJACKYGARRETTVEE LUNA Rep #: [id number] : 1960 64 From: Lucas Mcwilliams MD PCP: DINORAH Fall, CARD BOXER-C [place] [place] Race: C Location: EN Anesthesia Postop Eval I Sum Postop Eval Completion status Anesthesia document: Postop Eval 1 completed: Yes Anesthesia Postop Eval I Summary Anesthesia Postop Eval I Summary: Anesthesia Postop Eval I: Assessment Summary Airway patent Yes 01/09/25 08:00 [email or web address] Spontaneous unlabored Yes 01/09/25 08:00 [email or web address] respirations Mental status Asleep 01/09/25 08:00 [email or web address] nausea No 01/09/25 08:00 [email or web address] Vomiting No 01/09/25 08:00 [email or web address] Anesthesia Postop Eval I: Fluid Summary Crystalloid volume administer 500 01/09/25 08:00 [email or web address] (ml) Colloids volume administered ( ml) Blood Product volume administered (ml) Total IV fluid infused 500 01/09/25 08:00 [email or web address] Anesthesia Postop Eval I: Summary Notes Anesthesia Complication No 01/09/25 08:00 [email or web address] Anesthesia Complication Comment: Post-operative progress note Anesthesia: Postop Eval II Evaluation Mental status: Awake Pain Level: 0 nausea: No Vomiting: No 01/09/25 1143 Date Lucas Mcwilliams MD Cosign Signature: Date CC: Signed Normal [facility] Absolute lymphocyte countOrd ered By: DINORAH Garvin on 11-18-2024 Lymphocytes Auto (Unsp spec) [#/Vol] 2.03 10*3/uL 0.83-4.51 [facility] Absolute neutrophil countOrd ered By: DINORAH Garvin on 11-18-2024 Neutrophils (Bld) [#/Vol] 2.8 10*3/uL 2.0-7.7 [facility] Anion gap in Serum or Plasma Ordered By: DINORAH Garvin on 11-18-2024 Anion gap [Moles/Vol] 11 mmol/L - [facility] Automated lymphocyte count a s percentage of total leukocytesOrdered By: [facility] Susana Garvin on 11-18-2024 Lymphocytes/100 WBC Auto (Unsp spec) 37.5 % [facility] BUN/creatinine ratioOrdered By: [facility] Susana Garvin on 11-18-2024 Urea nitrogen/Creatinine [Mass ratio] 24.4 mg/mg High - [facility] Basophil percentageOrdered B y: [facility] Susana Garvin on 11-18-2024 Basophils/100 WBC (Bld) 0.6 % 0-1 [facility] Bilirubin, totalOrdered By: [facility] Garvin on 11-18-2024 Bilirubin [Mass/Vol] 0.30 mg/dL 0.00-1.30 [facility] CBC W/Diff, Automatedon 10-31 Absolute Lymph 2.03 X10 3/uL Normal 0.83-4.51 [facility] Comment on above: Performed By: #### L 500.4050, L501.9910, L500.4100, L100.0100, L502.0500 #### [facility] [address] [place], [address] Absolute Neut 2.8 X10 3/uL Normal 2.0-7.7 [facility] Comment on above: Performed By: #### L 500.4050, L501.9910, L500.4100, L100.0100, L502.0500 #### [facility] [address] [place], [address] Basophils/100 WBC (Bld) 0.6 % Normal 0-1 [facility] Comment on above: Performed By: #### L 500.4050, L501.9910, L500.4100, L100.0100, L502.0500 #### [facility] [address] [place], [address] Eosinophils/100 WBC (Bld) 2.2 % Normal 0-5 [facility] Comment on above: Performed By: #### L 500.4050, L501.9910, L500.4100, L100.0100, L502.0500 #### [facility] [address] [place], [address] Erythrocyte distribution width (RBC) [Ratio] 11.8 % Normal 11.6-14.6 [facility] Comment on above: Performed By: #### L 500.4050, L501.9910, L500.4100, L100.0100, L502.0500 #### [facility] [address] [place], [address] Hematocrit (Bld) [Volume fraction] 42.5 % Normal 40-54 [facility] Comment on above: Performed By: #### L 500.4050, L501.9910, L500.4100, L100.0100, L502.0500 #### [facility] [address] [place], [address] Hemoglobin (Bld) [Mass/Vol] 14.6 g/dL Normal 13.0-16.5 [facility] Comment on above: Performed By: #### L 500.4050, L501.9910, L500.4100, L100.0100, L502.0500 #### [facility] [address] [place], [address] IG% 0.400 Normal 0.0-0.9 [facility] Comment on above: Result Comment: IG% - Immature Granulocytes (promyelocytes, myelocytes and metamyelocytes) > 1% indicates that a LEFT SHIFT is Present. Performed By: #### L 500.4050, L501.9910, L500.4100, L100.0100, L502.0500 #### [facility] [address] [place], [address] Lymphocytes/100 WBC (Bld) 37.5 % Normal 19-41 [facility] Comment on above: Performed By: #### L 500.4050, L501.9910, L500.4100, L100.0100, L502.0500 #### [facility] [address] [place], [address] MCH (RBC) [Entitic mass] 30.7 pg Normal 27.0-32.0 [facility] Comment on above: Performed By: #### L 500.4050, L501.9910, L500.4100, L100.0100, L502.0500 #### [facility] [address] [place], [address] MCHC (RBC) [Mass/Vol] 34.4 g/dL Normal 32-36 [facility] Comment on above: Performed By: #### L 500.4050, L501.9910, L500.4100, L100.0100, L502.0500 #### [facility] [address] [place], [address] MCV (RBC) [Entitic vol] 89.3 fL Normal 80-94 [facility] Comment on above: Performed By: #### L 500.4050, L501.9910, L500.4100, L100.0100, L502.0500 #### [facility] [address] [place], [address] Monocytes/100 WBC (Bld) 7.8 % Normal 0-10 [facility] Comment on above: Performed By: #### L 500.4050, L501.9910, L500.4100, L100.0100, L502.0500 #### [facility] [address] [place], [address] Neutrophils/100 WBC (Bld) 51.5 % Normal 47-70 [facility] Comment on above: Performed By: #### L 500.4050, L501.9910, L500.4100, L100.0100, L502.0500 #### [facility] [address] [place], [address] Nucleated RBC (Bld) [#/Vol] 0 10*3/uL Normal 0-5 [facility] Comment on above: Performed By: #### L 500.4050, L501.9910, L500.4100, L100.0100, L502.0500 #### [facility] [address] [place], [address] Platelet mean volume (Bld) [Entitic vol] 10.1 fL Normal 6.2-12.0 [facility] Comment on above: Performed By: #### L 500.4050, L501.9910, L500.4100, L100.0100, L502.0500 #### [facility] [address] [place], [address] Platelets (Bld) [#/Vol] 235 10*3/uL Normal 150-450 [facility] Comment on above: Performed By: #### L 500.4050, L501.9910, L500.4100, L100.0100, L502.0500 #### [facility] [address] [place], [address] RBC (Bld) [#/Vol] 4.76 10*6/uL Normal 4.6-6.2 [facility] Comment on above: Performed By: #### L 500.4050, L501.9910, L500.4100, L100.0100, L502.0500 #### [facility] [address] [place], [address] RDW SD 38.0 fl Normal 35.1-43.9 [facility] Comment on above: Performed By: #### L 500.4050, L501.9910, L500.4100, L100.0100, L502.0500 #### [facility] [address] [place], [address] WBC (Bld) [#/Vol] 5.4 10*3/uL Normal 4.4-11.0 [facility] Comment on above: Performed By: #### L 500.4050, L501.9910, L500.4100, L100.0100, L502.0500 #### [facility] [address] [place], [address] Calculated very low density lipoprotein (VLDL) cholesterol measurementOrdered By: [facility] Susana Garvin on 11-18-2024 Calculated very low density lipoprotein (VLDL) cholesterol measurement 33 mg/dL 5-40 [facility] Carbon dioxide, total [Moles /volume] in Central venous bloodOrdered By: [facility] Susana Garvin on 11-18-2024 CO2 [Moles/Vol] 20.9 mmol/L Low 21.0-32.0 [facility] Chloride assayOrdered By: [facility] Susana Garvin on 11-18-2024 Chloride [Moles/Vol] 106 mmol/L 98-108 [facility] Comprehensive Metabolic Prof ilon 11-18-2024 Albumin [Mass/Vol] 4.2 g/dL Normal 3.4-4.8 [facility] Comment on above: Performed By: #### L 500.4050, L501.9910, L500.4100, L100.0100, L502.0500 #### [facility] [address] [place], [address] Albumin/Globulin [Mass ratio] 1.3 {ratio} Normal 0.9-2.4 [facility] Comment on above: Performed By: #### L 500.4050, L501.9910, L500.4100, L100.0100, L502.0500 #### [facility] [address] [place], [address] ALK PHOS 118 U/L Normal 40-129 [facility] Comment on above: Performed By: #### L 500.4050, L501.9910, L500.4100, L100.0100, L502.0500 #### [facility] [address] [place], [address] ALT [Catalytic activity/Vol] 19 U/L Normal <=46 [facility] Comment on above: Performed By: #### L 500.4050, L501.9910, L500.4100, L100.0100, L502.0500 #### [facility] [address] [place], [address] AST [Catalytic activity/Vol] 32 U/L Normal <=37 [facility] Comment on above: Performed By: #### L 500.4050, L501.9910, L500.4100, L100.0100, L502.0500 #### [facility] [address] [place], [address] Bilirubin [Mass/Vol] 0.30 mg/dL Normal 0.00-1.30 [facility] Comment on above: Performed By: #### L 500.4050, L501.9910, L500.4100, L100.0100, L502.0500 #### [facility] [address] [place], [address] BUN/CRE 24.4 RATIO High 10-20 [facility] Comment on above: Performed By: #### L 500.4050, L501.9910, L500.4100, L100.0100, L502.0500 #### [facility] [address] [place], [address] Calcium [Mass/Vol] 9.3 mg/dL Normal 7.6-11.0 [facility] Comment on above: Performed By: #### L 500.4050, L501.9910, L500.4100, L100.0100, L502.0500 #### [facility] [address] [place], [address] Chloride [Moles/Vol] 106 mmol/L Normal 98-108 [facility] Comment on above: Performed By: #### L 500.4050, L501.9910, L500.4100, L100.0100, L502.0500 #### [facility] [address] [place], [address] CO2 [Moles/Vol] 20.9 mmol/L Low 21.0-32.0 [facility] Comment on above: Performed By: #### L 500.4050, L501.9910, L500.4100, L100.0100, L502.0500 #### [facility] [address] [place], [address] Creatinine [Mass/Vol] 0.78 mg/dL Normal 0.70-1.20 [facility] Comment on above: Performed By: #### L 500.4050, L501.9910, L500.4100, L100.0100, L502.0500 #### [facility] [address] [place], [address] GAP 11 Normal 5-15 [facility] Comment on above: Performed By: #### L 500.4050, L501.9910, L500.4100, L100.0100, L502.0500 #### [facility] [address] [place], [address] GFR/1.73 sq M.predicted among non-blacks MDRD (S/P/Bld) [Vol rate/Area] 99 mL/min/{1.73_m2} Normal >60 [facility] Comment on above: Result Comment: mL/m in/1.73m2 CKD-EPI Creatinine Equation (2020) Performed By: #### L 500.4050, L501.9910, L500.4100, L100.0100, L502.0500 #### [facility] [address] [place], [address] Globulin (S) [Mass/Vol] 3.2 g/dL Normal 2.2-4.2 [facility] Comment on above: Performed By: #### L 500.4050, L501.9910, L500.4100, L100.0100, L502.0500 #### [facility] [address] [place], [address] Glucose [Mass/Vol] 152 mg/dL High 70-99 [facility] Comment on above: Performed By: #### L 500.4050, L501.9910, L500.4100, L100.0100, L502.0500 #### [facility] [address] [place], [address] Potassium [Moles/Vol] 4.5 mmol/L Normal 3.3-5.1 [facility] Comment on above: Performed By: #### L 500.4050, L501.9910, L500.4100, L100.0100, L502.0500 #### [facility] [address] [place], [address] Sodium [Moles/Vol] 138 mmol/L Normal 133-145 [facility] Comment on above: Performed By: #### L 500.4050, L501.9910, L500.4100, L100.0100, L502.0500 #### [facility] [address] [place], [address] T PROT 7.4 g/dL Normal 5.9-8.4 [facility] Comment on above: Performed By: #### L 500.4050, L501.9910, L500.4100, L100.0100, L502.0500 #### [facility] [address] [place], [address] Urea nitrogen [Mass/Vol] 19 mg/dL Normal 4-19 [facility] Comment on above: Performed By: #### L 500.4050, L501.9910, L500.4100, L100.0100, L502.0500 #### [facility] [address] [place], [address] Eosinophil percentageOrdered By: [facility] Susana Garvin on 11-18-2024 Eosinophils/100 WBC (Bld) 2.2 % 0-5 [facility] Erythrocyte distribution wid th ratioOrdered By: [facility] Garvin on 11-18-2024 Erythrocyte distribution width (RBC) [Ratio] 11.8 % 11.6-14.6 [facility] Erythrocyte distribution wid th standard deviationOrdered By: [facility] Garvin on 11-18-2024 Erythrocyte distribution width (RBC) [Ratio] 38.0 fl 35.1-43.9 [facility] Glomerular filtration rate ( GFR) estimation/1.73 sq m using serum, plasma, or whole bOrdered By: [facility] Garvin on 11-18-2024 GFR/1.73 sq M.predicted among non-blacks MDRD (S/P/Bld) [Vol rate/Area] 99 mL/min/{1.73_m2} >60 [facility] Comment on above: mL/min/1.73m2 CKD-EP I Creatinine Equation (2020) Hematocrit Auto (Bld) [Volum e fraction]Ordered By: [facility] Susana Garvin on 11-18-2024 Hematocrit (Bld) [Volume fraction] 42.5 % 40-54 [facility] Hemoglobin measurementOrdere d By: [facility] Susana Garvin on 11-18-2024 Hemoglobin (Bld) [Mass/Vol] 14.6 g/dL 13.0-16.5 [facility] Immature granulocytes/100 WB C Auto (Bld)Ordered By: [facility] Susana Garvin on 11-18-2024 Immature granulocytes/100 WBC (Bld) 0.400 % 0.0-0.9 [facility] Comment on above: IG% - Immature Granu locytes (promyelocytes, myelocytes and metamyelocytes) > 1% indicates that a LEFT SHIFT is Present. LDL calc ser/plasOrdered By: [facility] Susana Garvin on 11-18-2024 Cholesterol in LDL [Mass/Vol] 101 mg/dL [facility] Comment on above: Qtkayatvur=689-512 m g/dL & Higher Oxlp=111 mg/dL or greater Laboratory - Chemistry and C hemistry - challengeOrdered By: [facility] Susana Garvin on 11-18-2024 AST [Catalytic activity/Vol] 32 U/L <38 [facility] Lipid Profileon 11-18-2024 CHOL:HDL 4.79 Normal [facility] Comment on above: Performed By: #### L 500.4050, L501.9910, L500.4100, L100.0100, L502.0500 #### [facility] [address] [place], [address] Cholesterol [Mass/Vol] 169 mg/dL Normal <=200 [facility] Comment on above: Result Comment: Chol esterol level, Desirable <200 mg/dL Borderline high cholesterol 200-239 mg/dL High cholesterol >=240 mg/dL Recommendations of the NCEP Adult Treatment Panel for the following risk-cutoff thresholds for the [place] population. Performed By: #### L 500.4050, L501.9910, L500.4100, L100.0100, L502.0500 #### [facility] [address] [place], [address] Cholesterol in HDL [Mass/Vol] 35 mg/dL Low [facility] Comment on above: Result Comment: Jasmyne onal Cholesterol Education Program (NCEP) guidelines: <40 mg/dL: Low HDL-cholesterol (major risk factor for CHD) >= 60 mg/dL: High HDL-cholesterol (negative risk factor for CHD) HDL-cholesterol is affected by a number of factors, e.g. smoking, exercise, hormones, sex and age. Performed By: #### L 500.4050, L501.9910, L500.4100, L100.0100, L502.0500 #### [facility] [address] [place], [address] Cholesterol in LDL [Mass/Vol] 101 mg/dL Normal [facility] Comment on above: Result Comment: Bord eymdps=253-168 mg/dL Higher Ftrw=844 mg/dL or greater Performed By: #### L 500.4050, L501.9910, L500.4100, L100.0100, L502.0500 #### [facility] [address] [place], [address] Cholesterol in VLDL [Mass/Vol] 33 mg/dL Normal 5-40 [facility] Comment on above: Performed By: #### L 500.4050, L501.9910, L500.4100, L100.0100, L502.0500 #### [facility] [address] [place], [address] Triglyceride [Mass/Vol] 166 mg/dL Normal [facility] Comment on above: Result Comment: The drugs N-Acetylcysteine and Metamizole may falsely depress this assay. Normal range: <150 mg/dL Borderline High: 150-199 mg/dL High: 200-499 mg/dL Very High: >500 mg/dL Performed By: #### L 500.4050, L501.9910, L500.4100, L100.0100, L502.0500 #### [facility] [address] [place], [address] MCV (mean corpuscular volume ) determinationOrdered By: [facility] Susana Gavrin on 11-18-2024 MCV (RBC) [Entitic vol] 89.3 fL 80-94 [facility] Mean corpuscular hemoglobin (MCH) determinationOrdered By: [facility] Susana Garvin on 11-18-2024 MCH (RBC) [Entitic mass] 30.7 pg 27.0-32.0 [facility] Mean corpuscular hemoglobin concentration (MCHC) determinationOrdered By: [facility] Susana Garvin on 11-18-2024 MCHC (RBC) [Mass/Vol] 34.4 g/dL 32-36 [facility] Mean platelet volume determi nationOrdered By: [facility] Susana Garvin on 11-18-2024 Platelet mean volume (Bld) [Entitic vol] 10.1 fL 6.2-12.0 [facility] Microalbumin,Random Urineon 11-18-2024 MICROALBUMIN,UR 15.7 mg/L Normal NO RANGE EST. [facility] Comment on above: Performed By: #### L 500.4050, L501.9910, L500.4100, L100.0100, L502.0500 #### [facility] [address] [place], [address] Monocyte percentageOrdered B y: [facility] Susana Garvin on 11-18-2024 Monocytes/100 WBC (Bld) 7.8 % 0-10 [facility] Neutrophil percentageOrdered By: [facility] Susana Garvin on 11-18-2024 Neutrophils/100 WBC (Bld) 51.5 % 47-70 [facility] Nucleated red blood cell per centageOrdered By: [facility] Garvin on 11-18-2024 Nucleated RBC/100 WBC (Bld) [Ratio] 0 % 0-5 [facility] PSA,Total - Annual Screenon 11-18-2024 PSA,TOT SCREEN 1.28 ng/mL Normal 0.02-4.00 [facility] Comment on above: Result Comment: This test was performed using the [employer] tPSA method. Measured values of a patient??sample can vary depending on the testing procedure used. PSA values determined on patient samples by different testing procedures cannot be used interchangeably. If there is a change in PSA assays while monitoring therapy, sequential testing should be performed to confirm baseline values. Performed By: #### L 500.4050, L501.9910, L500.4100, L100.0100, L502.0500 #### [facility] [address] [place], [address] Platelet countOrdered By: [facility] Susana Garvin on 11-18-2024 Platelets (Bld) [#/Vol] 235 10*3/uL 150-450 [facility] Potassium measurement (mass/ volume)Ordered By: [facility] Susana Garvin on 11-18-2024 Potassium (Unsp spec) [Mass/Vol] 4.5 mmol/L 3.3-5.1 [facility] RBC Auto (Bld) [#/Vol]Ordere d By: [facility] Susana Garvin on 11-18-2024 RBC (Bld) [#/Vol] 4.76 10*6/uL 4.6-6.2 [facility] Screening total cholesterol/ high density lipoprotein (HDL) cholesterol ratioOrdered By: [facility] Susana Garvin on 11-18-2024 Cholesterol.total/Choles terol in HDL [Mass ratio] 4.79 {ratio} [facility] Serum creatinine measurement (mass/volume)Ordered By: [facility] Susana Garvin on 11-18-2024 Creatinine [Mass/Vol] 0.78 mg/dL 0.70-1.20 [facility] Serum globulin measurementOr dered By: [facility] Susana Garvin on 11-18-2024 Globulin (S) [Mass/Vol] 3.2 g/dL 2.2-4.2 [facility] Serum glucose measurement (m ass/volume)Ordered By: [facility] Susana Garvin on 11-18-2024 Glucose [Mass/Vol] 152 mg/dL High 70-99 [facility] Serum or plasma alanine schneider otransferase (ALT) measurementOrdered By: [facility] Susana Garvin on 11-18-2024 ALT [Catalytic activity/Vol] 19 U/L <47 [facility] Serum or plasma albumin ruthie urement (mass/volume)Ordered By: [facility] Susana Garvin on 11-18-2024 Albumin [Mass/Vol] 4.2 g/dL 3.4-4.8 [facility] Serum or plasma albumin/glob ulin mass ratioOrdered By: [facility] Susana Garvin on 11-18-2024 Albumin/Globulin [Mass ratio] 1.3 {ratio} 0.9-2.4 [facility] Serum or plasma alkaline britni sphatase measurementOrdered By: [facility] Susana Garvin on 11-18-2024 ALP [Catalytic activity/Vol] 118 U/L 40-129 [facility] Serum or plasma calcium ruthie urement (mass/volume)Ordered By: [facility] Susana Garvin on 11-18-2024 Calcium [Mass/Vol] 9.3 mg/dL 7.6-11.0 [facility] Serum or plasma cholesterol in HDL measurement (mass/volume)Ordered By: [facility] Susana Garvin on 11-18-2024 Cholesterol in HDL [Mass/Vol] 35 mg/dL Low >40 [facility] Comment on above: National Cholesterol Education Program (NCEP) guidelines:<40 mg/dL: Low HDL-cholesterol (major risk factor for CHD)>= 60 mg/dL: High HDL-cholesterol (negative risk factor for CHD)HDL-cholesterol is affected by a number of factors, e.g. smoking, exercise, hormones, sex and age. Serum or plasma cholesterol measurement (mass/volume)Ordered By: [facility] Susana Garvin on 11-18-2024 Cholesterol [Mass/Vol] 169 mg/dL <201 [facility] Comment on above: Cholesterol level, D esirable <200 mg/dLBorderline high cholesterol 200-239 mg/dLHigh cholesterol >=240 mg/dLRecommendations of the NCEP Adult Treatment Panel for the following risk-cutoff thresholds for the [place] population. Serum or plasma urea nitroge n measurement (mass/volume)Ordered By: [facility] Susana Garvin on 11-18-2024 Urea nitrogen [Mass/Vol] 19 mg/dL 4-19 [facility] Sodium levelOrdered By: [facility] Susana Garvin on 11-18-2024 Sodium [Moles/Vol] 138 mmol/L 133-145 [facility] Total proteinOrdered By: [facility] Susana Garvin on 11-18-2024 Protein [Mass/Vol] 7.4 g/dL 5.9-8.4 [facility] Triglycerides measurementOrd ered By: [facility] Susana Garvin on 11-18-2024 Triglyceride [Mass/Vol] 166 mg/dL <199 [facility] Comment on above: The drugs N-Acetylcy steine and Metamizole may falsely depress this assay. Normal range: <150 mg/dLBorderline High: 150-199 mg/dLHigh: 200-499 mg/dLVery High: >500 mg/dL Urine albumin measurement wi detection limit of 20 mg/L or less (mass/volume)Ordered By: [facility] Susana Garvin on 11-18-2024 Albumin DL <= 20 mg/L (U) [Mass/Vol] 15.7 mg/L NO RANGE EST. [facility] White blood cell (WBC) count Ordered By: [facility] Susana Garvin on 11-18-2024 WBC (Bld) [#/Vol] 5.4 10*3/uL 4.4-11.0 [facility] CBC W/Diff, Automatedon 01-31 Absolute Lymph 2.21 X10 3/uL Normal 0.83-4.51 [facility] Comment on above: Performed By: #### L 502.0500, L500.4100, L500.4050, L501.9520, L100.0100 #### [facility] [address] [place], [address] Absolute Neut 3.6 X10 3/uL Normal 2.0-7.7 [facility] Comment on above: Performed By: #### L 502.0500, L500.4100, L500.4050, L501.9520, L100.0100 #### [facility] [address] [place], [address] Basophils/100 WBC (Bld) 0.9 % Normal 0-1 [facility] Comment on above: Performed By: #### L 502.0500, L500.4100, L500.4050, L501.9520, L100.0100 #### [facility] [address] [place], [address] Eosinophils/100 WBC (Bld) 3.6 % Normal 0-5 [facility] Comment on above: Performed By: #### L 502.0500, L500.4100, L500.4050, L501.9520, L100.0100 #### [facility] [address] [place], [address] Erythrocyte distribution width (RBC) [Ratio] 11.9 % Normal 11.6-14.6 [facility] Comment on above: Performed By: #### L 502.0500, L500.4100, L500.4050, L501.9520, L100.0100 #### [facility] [address] [place], [address] Hematocrit (Bld) [Volume fraction] 42.2 % Normal 40-54 [facility] Comment on above: Performed By: #### L 502.0500, L500.4100, L500.4050, L501.9520, L100.0100 #### [facility] [address] [place], [address] Hemoglobin (Bld) [Mass/Vol] 14.5 g/dL Normal 13.0-16.5 [facility] Comment on above: Performed By: #### L 502.0500, L500.4100, L500.4050, L501.9520, L100.0100 #### [facility] [address] [place], [address] IG% 0.300 Normal 0.0-0.9 [facility] Comment on above: Result Comment: IG% - Immature Granulocytes (promyelocytes, myelocytes and metamyelocytes) > 1% indicates that a LEFT SHIFT is Present. Performed By: #### L 502.0500, L500.4100, L500.4050, L501.9520, L100.0100 #### [facility] [address] [place], [address] Lymphocytes/100 WBC (Bld) 33.6 % Normal 19-41 [facility] Comment on above: Performed By: #### L 502.0500, L500.4100, L500.4050, L501.9520, L100.0100 #### [facility] [address] [place], [address] MCH (RBC) [Entitic mass] 30.4 pg Normal 27.0-32.0 [facility] Comment on above: Performed By: #### L 502.0500, L500.4100, L500.4050, L501.9520, L100.0100 #### [facility] [address] [place], [address] MCHC (RBC) [Mass/Vol] 34.4 g/dL Normal 32-36 [facility] Comment on above: Performed By: #### L 502.0500, L500.4100, L500.4050, L501.9520, L100.0100 #### [facility] [address] [place], [address] MCV (RBC) [Entitic vol] 88.5 fL Normal 80-94 [facility] Comment on above: Performed By: #### L 502.0500, L500.4100, L500.4050, L501.9520, L100.0100 #### [facility] [address] [place], [address] Monocytes/100 WBC (Bld) 7.3 % Normal 0-10 [facility] Comment on above: Performed By: #### L 502.0500, L500.4100, L500.4050, L501.9520, L100.0100 #### [facility] [address] [place], [address] Neutrophils/100 WBC (Bld) 54.3 % Normal 47-70 [facility] Comment on above: Performed By: #### L 502.0500, L500.4100, L500.4050, L501.9520, L100.0100 #### [facility] [address] [place], [address] Nucleated RBC (Bld) [#/Vol] 0 10*3/uL Normal 0-5 [facility] Comment on above: Performed By: #### L 502.0500, L500.4100, L500.4050, L501.9520, L100.0100 #### [facility] [address] [place], [address] Platelet mean volume (Bld) [Entitic vol] 10.5 fL Normal 6.2-12.0 [facility] Comment on above: Performed By: #### L 502.0500, L500.4100, L500.4050, L501.9520, L100.0100 #### [facility] [address] [place], [address] Platelets (Bld) [#/Vol] 251 10*3/uL Normal 150-450 [facility] Comment on above: Performed By: #### L 502.0500, L500.4100, L500.4050, L501.9520, L100.0100 #### [facility] [address] [place], [address] RBC (Bld) [#/Vol] 4.77 10*6/uL Normal 4.6-6.2 [facility] Comment on above: Performed By: #### L 502.0500, L500.4100, L500.4050, L501.9520, L100.0100 #### [facility] [address] [place], [address] RDW SD 38.7 fl Normal 35.1-43.9 [facility] Comment on above: Performed By: #### L 502.0500, L500.4100, L500.4050, L501.9520, L100.0100 #### [facility] [address] [place], [address] WBC (Bld) [#/Vol] 6.6 10*3/uL Normal 4.4-11.0 [facility] Comment on above: Performed By: #### L 502.0500, L500.4100, L500.4050, L501.9520, L100.0100 #### [facility] [address] [place], [address] Comprehensive Metabolic Prof ilon 02-26-2024 Albumin [Mass/Vol] 3.5 g/dL Normal 3.2-5.0 [facility] Comment on above: Performed By: #### L 502.0500, L500.4100, L500.4050, L501.9520, L100.0100 ####[facility] [address] [place], [address] Albumin/Globulin [Mass ratio] 0.9 {ratio} Normal 0.9-2.4 [facility] Comment on above: Performed By: #### L 502.0500, L500.4100, L500.4050, L501.9520, L100.0100 ####[facility] [address] [place], [address] ALK P 118 U/L High 45-117 [facility] Comment on above: Performed By: #### L 502.0500, L500.4100, L500.4050, L501.9520, L100.0100 ####[facility] [address] [place], [address] ALT [Catalytic activity/Vol] 17 U/L Normal 16-61 [facility] Comment on above: Performed By: #### L 502.0500, L500.4100, L500.4050, L501.9520, L100.0100 ####[facility] [address] [place], [address] AST [Catalytic activity/Vol] 23 U/L Normal 15-37 [facility] Comment on above: Performed By: #### L 502.0500, L500.4100, L500.4050, L501.9520, L100.0100 ####[facility] [address] [place], [address] Bilirubin [Mass/Vol] 0.40 mg/dL Normal 0.20-1.00 [facility] Comment on above: Result Comment: For patients on eltrombopag therapy, use of Dimension [place] TBIL is not recommended. Performed By: #### L 502.0500, L500.4100, L500.4050, L501.9520, L100.0100 ####[facility] [address] [place], [address] BUN/CRE 23.0 RATIO High 10-20 [facility] Comment on above: Performed By: #### L 502.0500, L500.4100, L500.4050, L501.9520, L100.0100 ####[facility] [address] [place], [address] CA,Total 9.5 mg/dL Normal 8.5-10.1 [facility] Comment on above: Performed By: #### L 502.0500, L500.4100, L500.4050, L501.9520, L100.0100 ####[facility] [address] [place], [address] Chloride [Moles/Vol] 103 mmol/L Normal 98-107 [facility] Comment on above: Performed By: #### L 502.0500, L500.4100, L500.4050, L501.9520, L100.0100 ####[facility] [address] [place], [address] CO2 [Moles/Vol] 25.0 mmol/L Normal 21.0-32.0 [facility] Comment on above: Performed By: #### L 502.0500, L500.4100, L500.4050, L501.9520, L100.0100 ####[facility] [address] [place], [address] Creatinine [Mass/Vol] 0.82 mg/dL Normal 0.70-1.30 [facility] Comment on above: Result Comment: The validity of the calculated GFR GFRAA in patients over 70 years has not been determined. Clinical correlation is essential. Performed By: #### L 502.0500, L500.4100, L500.4050, L501.9520, L100.0100 ####[facility] [address] [place], [address] EST GFR - AA 121 mL/min Normal >60 [facility] Comment on above: Result Comment: Afri can [place] GFR Calc Performed By: #### L 502.0500, L500.4100, L500.4050, L501.9520, L100.0100 ####[facility] [address] [place], [address] GAP 8 Normal 5-15 [facility] Comment on above: Performed By: #### L 502.0500, L500.4100, L500.4050, L501.9520, L100.0100 ####[facility] [address] [place], [address] GFR/1.73 sq M.predicted among non-blacks MDRD (S/P/Bld) [Vol rate/Area] 100 mL/min/{1.73_m2} Normal >60 [facility] Comment on above: Result Comment: Non- GFR Calc Performed By: #### L 502.0500, L500.4100, L500.4050, L501.9520, L100.0100 ####[facility] [address] [place], [address] Globulin (S) [Mass/Vol] 3.7 g/dL Normal 2.2-4.2 [facility] Comment on above: Performed By: #### L 502.0500, L500.4100, L500.4050, L501.9520, L100.0100 ####[facility] [address] [place], [address] Glucose [Mass/Vol] 120 mg/dL High 74-106 [facility] Comment on above: Result Comment: Fast ing Glucose result from 100 to 125 mg/dL suggests IMPAIRED HOMEOSTASIS per A.D.A. criteria. Performed By: #### L 502.0500, L500.4100, L500.4050, L501.9520, L100.0100 ####[facility] [address] [place], [address] Potassium [Moles/Vol] 4.3 mmol/L Normal 3.5-5.1 [facility] Comment on above: Performed By: #### L 502.0500, L500.4100, L500.4050, L501.9520, L100.0100 ####[facility] [address] [place], [address] Sodium [Moles/Vol] 136 mmol/L Normal 136-145 [facility] Comment on above: Performed By: #### L 502.0500, L500.4100, L500.4050, L501.9520, L100.0100 ####[facility] [address] [place], [address] T PROT 7.2 g/dL Normal 6.4-8.2 [facility] Comment on above: Performed By: #### L 502.0500, L500.4100, L500.4050, L501.9520, L100.0100 ####[facility] [address] [place], [address] Urea nitrogen [Mass/Vol] 19 mg/dL High 7-18 [facility] Comment on above: Performed By: #### L 502.0500, L500.4100, L500.4050, L501.9520, L100.0100 ####[facility] [address] [place], [address] Lipid Profileon 02-26-2024 Cholesterol [Mass/Vol] 121 mg/dL Normal 200 [facility] Comment on above: Result Comment: <200 mg/dL Desirable 200-240 mg/dL Borderline >240 mg/dL High Risk Performed By: #### L 502.0500, L500.4100, L500.4050, L501.9520, L100.0100 ####[facility] [address] [place], [address] Cholesterol in HDL [Mass/Vol] 43 mg/dL Normal [facility] Comment on above: Result Comment: The drugs N-Acetylcysteine and Metamizole may falsely depress this assay. Reference Range HDL <40 mg/dL Low HDL Cholesterol HDL >or= 60 mg/dL High HDL Cholesterol Performed By: #### L 502.0500, L500.4100, L500.4050, L501.9520, L100.0100 ####[facility] [address] [place], [address] Cholesterol in LDL [Mass/Vol] 59 mg/dL Normal 0-130 [facility] Comment on above: Performed By: #### L 502.0500, L500.4100, L500.4050, L501.9520, L100.0100 ####[facility] [address] [place], [address] Cholesterol in VLDL [Mass/Vol] 19 mg/dL Normal 5-40 [facility] Comment on above: Performed By: #### L 502.0500, L500.4100, L500.4050, L501.9520, L100.0100 ####[facility] [address] [place], [address] Triglyceride [Mass/Vol] 96 mg/dL Normal [facility] Comment on above: Result Comment: The drugs N-Acetylcysteine and Metamizole may falsely depress this assay. Serum Triglycerides Reference Interval Normal <150 mg/dL Borderline high 150 - 199 mg/dL High 200 - 499 mg/dL Very High > or = 500 mg/dL Performed By: #### L 502.0500, L500.4100, L500.4050, L501.9520, L100.0100 ####[facility] [address] [place], [address] Microalbumin,Random Urineon 02-26-2024 MICROALBUMIN,UR 8.6 mg/L Normal NO RANGE EST. [facility] Comment on above: Performed By: #### L 502.0500, L500.4100, L500.4050, L501.9520, L100.0100 #### [facility] [address] [place], [address] Thyroid Stim Hormone (TSH)on 02-26-2024 TSH 1.370 uIU/mL Normal 0.358-3.740 [facility] Comment on above: Performed By: #### L 502.0500, L500.4100, L500.4050, L501.9520, L100.0100 ####[facility] [address] [place], [address] Absolute lymphocyte countOrd ered By: [facility] Susana Garvin on 10-23-2023 Lymphocytes Auto (Unsp spec) [#/Vol] 2.35 10*3/uL 0.83-4.51 [facility] Automated lymphocyte count a s percentage of total leukocytesOrdered By: [facility] Susana Garvin on 10-23-2023 Lymphocytes/100 WBC Auto (Unsp spec) 37.5 % 19-41 [facility] Basophil percentageOrdered B y: [facility] Susana Garvin on 10-23-2023 Basophils/100 WBC (Bld) 0.6 % 0-1 [facility] Bilirubin [Mass/Vol] 0.40 mg/dL 0.20-1.00 [facility] Comment on above: For patients on eltr ombopag therapy, use of Dimension [place] TBIL is not recommended. Chloride [Moles/Vol] 104 mmol/L 98-107 [facility] Cholesterol [Mass/Vol] 150 mg/dL <200 [facility] Comment on above: <200 mg/dL Desirable 200-240 mg/dL Borderline >240 mg/dL High Risk Eosinophils/100 WBC (Bld) 2.4 % 0-5 [facility] Glucose [Mass/Vol] 234 mg/dL 74-106 [facility] Comment on above: Glucose result great er than or equal to 200 mg/dLsuggests DIABETES MELLITUS per A.D.A. criteria. Hemoglobin (Bld) [Mass/Vol] 14.6 g/dL 13.0-16.5 [facility] Monocytes/100 WBC (Bld) 7.2 % 0-10 [facility] Neutrophils (Bld) [#/Vol] 3.3 10*3/uL 2.0-7.7 [facility] Neutrophils/100 WBC (Bld) 52.0 % 47-70 [facility] Potassium [Moles/Vol] 4.1 mmol/L 3.5-5.1 [facility] Protein [Mass/Vol] 7.5 g/dL 6.4-8.2 [facility] Sodium [Moles/Vol] 136 mmol/L 136-145 [facility] Triglyceride [Mass/Vol] 263 mg/dL <199 [facility] Comment on above: The drugs N-Acetylcy steine and Metamizole may falsely depress this assay.Serum Triglycerides Reference Interval Normal <150 mg/dL Borderline high 150 - 199 mg/dL High 200 - 499 mg/dL Very High > or = 500 mg/dL WBC (Bld) [#/Vol] 6.3 10*3/uL 4.4-11.0 [facility] Determination of erythrocyte mean corpuscular volume (MCV)Ordered By: [facility] Susana Garvin on 10-23-2023 MCV (RBC) [Entitic vol] 88.4 fL 80-94 [facility] Erythrocyte distribution wid th ratioOrdered By: [facility] Susana Garvin on 10-23-2023 Erythrocyte distribution width (RBC) [Ratio] 11.8 % 11.6-14.6 [facility] Erythrocyte distribution wid th standard deviationOrdered By: [facility] Susana Garvin on 10-23-2023 Erythrocyte distribution width (RBC) [Entitic vol] 37.8 fL 35.1-43.9 [facility] Hematocrit Auto (Bld) [Volum e fraction]Ordered By: [facility] Susana Bharathi on 10-23-2023 Hematocrit (Bld) [Volume fraction] 42.8 % 40-54 [facility] Immature granulocytes/100 WB C Auto (Bld)Ordered By: [facility] Susana Bharathi on 10-23-2023 Immature granulocytes/100 WBC (Bld) 0.300 % 0.0-0.9 [facility] Comment on above: IG% - Immature Granu locytes (promyelocytes, myelocytes and metamyelocytes) > 1% indicates that a LEFT SHIFT is Present. Laboratory - Chemistry and C hemistry - challengeOrdered By: [facility] Susana Bharathi on 10-23-2023 Albumin/Globulin [Mass ratio] 0.9 {ratio} 0.9-2.4 [facility] ALP [Catalytic activity/Vol] 133 U/L 45-117 [facility] ALT [Catalytic activity/Vol] 38 U/L 16-61 [facility] Cholesterol in HDL [Mass/Vol] 31 mg/dL >40 [facility] Comment on above: The drugs N-Acetylcy steine and Metamizole may falsely depress this assay. Reference Range HDL <40 mg/dL Low HDL Cholesterol HDL >or= 60 mg/dL High HDL Cholesterol Cholesterol in LDL [Mass/Vol] 66 mg/dL 0-130 [facility] CO2 [Moles/Vol] 27.0 mmol/L 21.0-32.0 [facility] Globulin (S) [Mass/Vol] 3.9 g/dL 2.2-4.2 [facility] Urea nitrogen/Creatinine [Mass ratio] 18.3 mg/mg 10-20 [facility] Laboratory - Hematology and Cell countsOrdered By: [facility] Susana Bharathi on 10-23-2023 MCH (RBC) [Entitic mass] 30.2 pg 27.0-32.0 [facility] MCHC (RBC) [Mass/Vol] 34.1 g/dL 32-36 [facility] Nucleated RBC/100 WBC (Bld) [Ratio] 0 % 0-5 [facility] Platelet mean volume (Bld) [Entitic vol] 10.2 fL 6.2-12.0 [facility] Platelets (Bld) [#/Vol] 221 10*3/uL 150-450 [facility] No Panel InformationOrdered By: [facility] Susana Garvin on 10-23-2023 Estimated GFR (MDRD) Amer 105 mL/min >60 [facility] Comment on above: GFR Calc Estimated GFR (MDRD) Non-Af Amer 87 mL/min >60 [facility] Comment on above: Non- GFR Calc Prostate Specific Antigen Screen 0.98 ng/mL 0.00-4.00 [facility] Comment on above: This test was perfor med using the TPSA assay method for [employer] chemistry system. Values obtained with differentassay methods cannot be used interchangably.When changing PSA assays in the course of monitoring apatient, additional sequential testing should be carriedout to confirm baseline values. VLDL Cholesterol 53 mg/dL 5-40 [facility] RBC Auto (Bld) [#/Vol]Ordere d By: [facility] Susana Garvin on 10-23-2023 RBC (Bld) [#/Vol] 4.84 10*6/uL 4.6-6.2 [facility] Serum or plasma calcium ruthie urement (mass/volume)Ordered By: [facility] Susana Garvin on 10-23-2023 Calcium [Mass/Vol] 9.1 mg/dL 8.5-10.1 [facility] Serum or plasma creatinine m easurement (mass/volume)Ordered By: DINORAH Garvin on 10-23-2023 Creatinine [Mass/Vol] 0.93 mg/dL 0.70-1.30 [facility] Comment on above: The validity of the calculated GFR & GFRAA in patients over 70 years has not been determined. Clinical correlation is essential. Serum or plasma thyroid stim ulating hormone (TSH) measurement (units/volume)Ordered By: [facility] Susana Garvin on 10-23-2023 TSH Qn 1.52 uIU/mL 0.358-3.74 [facility] Serum or plasma urea nitroge n measurement (mass/volume)Ordered By: [facility] Susana Garvin on 10-23-2023 Urea nitrogen [Mass/Vol] 17 mg/dL 7-18 [facility] Thin prep Papanicolaou smear with manual screeningOrdered By: [facility] Susana Bharathi on 10-23-2023 Thin prep Papanicolaou smear with manual screening 3.6 g/dL 3.2-5.0 [facility] Thin prep Papanicolaou smear with manual screening 34 U/L 15-37 [facility] Thin prep Papanicolaou smear with manual screening 5 5-15 [facility] Whole blood hemoglobin A1c/t otal hemoglobin ratio (mass fraction)Ordered By: [facility] Susana Bharathi on 10-23-2023 HbA1c (Bld) [Mass fraction] 10.1 % 3.8-5.6 [facility] Comment on above: Normal < 5.7 % Predi abetic 5.7 - 6.4 % Diabetic >or= 6.5 % Please note range changes. CNOVon 10-13-2021 CNOV Office Visit (AGFAMPLE) GARRETT CACERES ([id number]) 1960 M Date Time Provider Department 10/13/21 11:40 AM NEL ALVAREZ During your visit today, we recorded the following information about you: Temperature Pulse Respiration Blood pressure 98 degrees 108/minute 16/minute 128/76 Weight Height 121.5 kg 1.778 m Nel Alvarez DO 10/30/2021 4:55 PM Signed Subjective [...] Coordination: Coordin (more content not included)... Normal [facility] GARRETT CACERES ([id number]) 1960 M Date Time Provider Department 09/21/21 NEL ALVAREZ CollaajCYRILGoFormzRegine During your visit today, we recorded the following information about you: Ana Luisa Barillas MA 09/21/2021 11:01 AM Signed ----- Message from Khoa Hernandez MD sent at 09/21/2021 11:00 AM EDT ----- Normal PSA Ana Luisa Barillas MA 09/21/2021 11:04 AM Signed Patient is informed. Ana Luisa Barillas MA Allergies As of Date: 09/21/2021 [...] BMI 35-39.9 [E66.9] 03/02/2020 Encounter Status:Closed by ANA LUISA BARILLAS on 09/21/[address] [facility] CBC panel Auto (Bld)on 09-20 Erythrocyte distribution width (RBC) [Ratio] 12.4 % Normal 11.5-15.0 [facility] Comment on above: Order Comment: Speci men Type: BLOOD SPECIMEN Ordering Facility: [facility] Address: [address] [place] [address] Performed By: #### 5 8410-2 #### [facility] CLIA [id number] [address] [place] [address] [facility] Hematocrit (Bld) [Volume fraction] 43.5 % Normal 39.0-51.0 [facility] Comment on above: Order Comment: Speci men Type: BLOOD SPECIMEN Ordering Facility: [facility] Address: [address] [id number] Performed By: #### 5 8410-2 #### [facility] [place] [facility] CLIA [id number] [address] OF [facility] Hemoglobin (Bld) [Mass/Vol] 14.4 g/dL Normal 13.0-17.0 [facility] Comment on above: Order Comment: Speci men Type: BLOOD SPECIMEN Ordering Facility: [facility] Address: [address] [place] [address] Performed By: #### 5 8410-2 #### [facility] [place] [facility] CLIA [id number] [address] OF [place] MCH (RBC) [Entitic mass] 30.3 pg Normal 26.0-34.0 [facility] Comment on above: Order Comment: Speci men Type: BLOOD SPECIMEN Ordering Facility: [facility] Address: [address] [place] [address] Performed By: #### 5 8410-2 #### [facility] CLIA [id number] [address] OF [place] MCHC (RBC) [Mass/Vol] 33.1 g/dL Normal 30.5-36.0 [facility] Comment on above: Order Comment: Speci men Type: BLOOD SPECIMEN Ordering Facility: [facility] Address: [address] [place] [address] Performed By: #### 5 8410-2 #### [facility] [place] [facility] CLIA [id number] [address] [place] [address] [place] MCV (RBC) [Entitic vol] 91.4 fL Normal 80.0-100.0 [facility] Comment on above: Order Comment: Speci men Type: BLOOD SPECIMEN Ordering Facility: [facility] Address: [address] [place] [address] Performed By: #### 5 8410-2 #### [facility] [place] [facility] CLIA [id number] [address] [place] [address] [place] Platelet mean volume (Bld) [Entitic vol] 9.6 fL Normal 9.0-12.7 [facility] Comment on above: Order Comment: Speci men Type: BLOOD SPECIMEN Ordering Facility: [facility] Address: [address] [place] [address] Performed By: #### 5 8410-2 #### [facility] [place] [facility] CLIA [id number] [address] [place] [address] [place] Platelets (Bld) [#/Vol] 202 10*3/uL Normal 150-400 [facility] Comment on above: Order Comment: Speci men Type: BLOOD SPECIMEN Ordering Facility: [facility] Address: [address] [place] [address] Performed By: #### 5 8410-2 #### [facility] CLIA [id number] [address] STATES OF [facility] RBC (Bld) [#/Vol] 4.76 10*6/uL Normal 4.20-6.00 [facility] Comment on above: Order Comment: Speci men Type: BLOOD SPECIMEN Ordering Facility: [facility] Address: [address] [place] [address] Performed By: #### 5 8410-2 #### [facility] [place] [facility] CLIA [id number] [address] [place] WBC (Bld) [#/Vol] 4.32 10*3/uL Normal 3.70-11.00 [facility] Comment on above: Order Comment: Speci men Type: BLOOD SPECIMEN Ordering Facility: [facility] Address: [address] [place] [address] Performed By: #### 5 8410-2 #### [facility] [place] [facility] CLIA [id number] [address] OF [facility] Radha 09-20-2021 [facility] Telephone (AGINTMLW) GARRETT CACERES ([id number]) 1960 M Date Time Provider Department 09/20/21 KHOA HERNANDEZ AGINTMLRegine During your visit today, we recorded the following information about you: Ana Luisa Barillas MA 09/20/2021 2:22 PM Signed ----- Message from Khoa Hernandez MD sent at 09/20/2021 11:57 AM EDT ----- Normal CBC. Remaining labs are still pending. Ana Luisa Barillas MA 09/20/2021 2:23 PM Signed Patient informed. Ana Luisa Barillas MA Allergies As of Date: 09/20/2021 [...] BMI 35-39.9 [E66.9] 03/02/2020 Encounter Status:Closed by ANA LUISA BARILLAS on 09/20/21 [facility] Telephone (AGINTMLW) GARRETT CACERES ([id number]) 1960 M Date Time Provider Department 09/20/21 NEL ALVAREZ During your visit today, we recorded [...] Status:Closed by SHRUTHI COBB on 09/20/21 Normal [facility] metabolic 2000 panelon 09-20-2021 Albumin [Mass/Vol] 4.4 g/dL Normal 3.9-4.9 [facility] Comment on above: Order Comment: Brooklynn avalos Type: BLOOD SPECIMEN Ordering Facility: [facility] Address: [address] [place] [address] Performed By: #### 2 4323-8, LIPB #### [facility] [place] [facility] CLIA [id number] [address] [place] [address] [place] ALP [Catalytic activity/Vol] 102 U/L Normal 38-113 [facility] Comment on above: Order Comment: Brooklynn avalos Type: BLOOD SPECIMEN Ordering Facility: [facility] Address: [address] [place] [address] Performed By: #### 2 4323-8, LIPB #### [facility] [place] [facility] CLIA [id number] [address] STATES OF [facility] ALT With P-5'-P [Catalytic activity/Vol] 22 U/L Normal 10-54 [facility] Comment on above: Order Comment: Speci men Type: BLOOD SPECIMEN Ordering Facility: [facility] Address: [address] [place] [address] Performed By: #### 2 4323-8, LIPB #### [facility] [place] [facility] CLIA [id number] [address] [place] [address] [place] Anion gap [Moles/Vol] 10 mmol/L Normal 9-18 [facility] Comment on above: Order Comment: Speci men Type: BLOOD SPECIMEN Ordering Facility: [facility] Address: [address] [address] Performed By: #### 2 4323-8, LIPB #### [facility] [place] [facility] CLIA [id number] [address] [place] [address] [place] AST With P-5'-P [Catalytic activity/Vol] 24 U/L Normal 14-40 [facility] Comment on above: Order Comment: Speci men Type: BLOOD SPECIMEN Ordering Facility: [facility] Address: [address] [place] [address] Performed By: #### 2 4323-8, LIPB #### [facility] [place] [facility] CLIA [id number] [address] [place] [address] [place] Bilirubin [Mass/Vol] 0.3 mg/dL Normal 0.2-1.3 [facility] Comment on above: Order Comment: Speci men Type: BLOOD SPECIMEN Ordering Facility: [facility] Address: [address] [place] [address] Performed By: #### 2 4323-8, LIPB #### [facility] [place] [facility] CLIA [id number] [address] [place] [address] [place] Calcium [Mass/Vol] 9.3 mg/dL Normal 8.5-10.2 [facility] Comment on above: Order Comment: Speci men Type: BLOOD SPECIMEN Ordering Facility: [facility] Address: [address] [place] [address] Performed By: #### 2 4323-8, LIPB #### [facility] [place] [facility] CLIA [id number] [address] [place] [address] [place] Chloride [Moles/Vol] 104 mmol/L Normal 97-105 [facility] Comment on above: Order Comment: Speci men Type: BLOOD SPECIMEN Ordering Facility: [facility] Address: [address] [place] [address] Performed By: #### 2 4323-8, LIPB #### [facility] [place] [facility] CLIA [id number] [address] [place] [address] [place] CO2 [Moles/Vol] 26 mmol/L Normal 22-30 [facility] Comment on above: Order Comment: Brooklynn avalos Type: BLOOD SPECIMEN Ordering Facility: [facility] Address: [address] [place] [address] Performed By: #### 2 4323-8, LIPB #### [facility] CLIA [id number] [address] [place] [address] [place] Creatinine [Mass/Vol] 0.94 mg/dL Normal 0.73-1.22 [facility] Comment on above: Order Comment: Brooklynn men Type: BLOOD SPECIMEN Ordering Facility: [facility] Address: [address] [place] [address] Performed By: #### 2 4323-8, LIPB #### [facility] CLIA [id number] [address] OF [facility] ESTIMATED GLOMERULAR FILTRATION RATE 92 mL/min/1.73m??? Normal >=60 [facility] Comment on above: Order Comment: Brooklynn men Type: BLOOD SPECIMEN Ordering Facility: [facility] Address: [address] [place] [address] Result Comment: Jennie mated Glomerular Filtration Rate [...] Performed By: #### 2 4323-8, LIPB #### [facility] CLIA [id number] [address] [place] Glucose [Mass/Vol] 131 mg/dL High 74-99 [facility] Comment on above: Order Comment: Brooklynn men Type: BLOOD SPECIMEN Ordering Facility: [facility] Address: [address] [place] [address] Result Comment: The [place] Diabetes Association (ADA) provides guidance for cutoff [...] Standards of Medical Care in Diabetes 2016, [place] [employer]. Diabetes Care. 2016.39(Suppl 1). Performed By: #### 2 4323-8, LIPB #### [facility] [place] [facility] CLIA [id number] [address] [place] [address] [place] Potassium [Moles/Vol] 4.3 mmol/L Normal 3.7-5.1 [facility] Comment on above: Order Comment: Brooklynn avalos Type: BLOOD SPECIMEN Ordering Facility: [facility] Address: [address] [place] [address] Performed By: #### 2 4323-8, LIPB #### [facility] CLIA [id number] [address] [place] [address] [place] Protein [Mass/Vol] 7.1 g/dL Normal 6.3-8.0 [facility] Comment on above: Order Comment: Brooklynn avalos Type: BLOOD SPECIMEN Ordering Facility: [facility] Address: [address] [place] [address] Performed By: #### 2 4323-8, LIPB #### [facility] [place] [facility] CLIA [id number] [address] [id number] [place] Sodium [Moles/Vol] 140 mmol/L Normal 136-144 [facility] Comment on above: Order Comment: Brooklynn men Type: BLOOD SPECIMEN Ordering Facility: [facility] Address: [address] [address] Performed By: #### 2 4323-8, LIPB #### [facility] [place] [facility] CLIA [id number] [address] [place] [address] [place] Urea nitrogen [Mass/Vol] 17 mg/dL Normal 9-24 [facility] Comment on above: Order Comment: Brooklynn avalos Type: BLOOD SPECIMEN Ordering Facility: [facility] Address: [address] [place] [address] Performed By: #### 2 4323-8, LIPB #### [facility] CLIA [id number] [address] [place] [address] [facility] OF [place] LIPID PANEL BASICon 09-21-19 22 Cholesterol [Mass/Vol] 188 mg/dL Normal <200 [facility] Comment on above: Order Comment: Brooklynn avalos Type: BLOOD SPECIMEN Ordering Facility: [facility] Address: [address] [place] [address] Result Comment: <200 mg/dL, Desirable 200-239 mg/dL, Borderline high >239 mg/dL, High Performed By: #### 2 4323-8, LIPB #### [facility] CLIA [id number] [address] OF [place] Cholesterol in HDL [Mass/Vol] 35 mg/dL Low >39 [facility] Comment on above: Order Comment: Brooklynn avalos Type: BLOOD SPECIMEN Ordering Facility: [facility] Address: [address] [place] [address] Result Comment: 40-5 9 mg/dL, Acceptable >59 mg/dL, High: Negative risk factor for coronary heart disease <40 mg/dL, Low: Positive risk factor for coronary heart disease Performed By: #### 2 4323-8, LIPB #### [facility] [place] [facility] CLIA [id number] [address] OF [place] Cholesterol in LDL [Mass/Vol] 106 mg/dL High <100 [facility] Comment on above: Order Comment: Brooklynn robbie Type: BLOOD SPECIMEN Ordering Facility: [facility] Address: [address] [place] [address] Result Comment: <100 mg/dL, Optimal 100-129 mg/dL, Near optimal/above optimal 130-159 mg/dL, Borderline high 160-189 mg/dL, High >189 mg/dL, Very high Secondary prevention optimal LDL Cholesterol levels are recommended to be < 70 mg/dL Performed By: #### 2 4323-8, LIPB #### [facility] [place] [facility] CLIA [id number] [address] [place] [address] [facility] [place] Cholesterol in LDL/Cholesterol in HDL [Mass ratio] 3.03 {ratio} High <2.54 [facility] Comment on above: Order Comment: Brooklynn avalos Type: BLOOD SPECIMEN Ordering Facility: [facility] Address: [address] [place] [address] Result Comment: Refe melva: 1. National Cholesterol Education Program ATP III Guideline At-A-Glance Quick Desk Reference: National Heart, Lung, and Blood [place]. National Institutes of Health. 2001: NIH Publication No. 01-3305. 2. An International Atherosclerosis Society position paper: global recommendations for the management of dyslipidemia: executive summary, Atherosclerosis. 2014: 232(2):410-413. Performed By: #### 2 4323-8, LIPB #### [facility] [place] [facility] CLIA [id number] [address] [place] [address] [facility] [place] Cholesterol in VLDL [Mass/Vol] 47 mg/dL High <30 [facility] Comment on above: Order Comment: Brooklynn avalos Type: BLOOD SPECIMEN Ordering Facility: [facility] Address: [address] [place] [address] Performed By: #### 2 4323-8, LIPB #### [facility] [place] [facility] CLIA [id number] [address] [place] [address] [place] Cholesterol non HDL [Mass/Vol] 153 mg/dL High <130 [facility] Comment on above: Order Comment: Brooklynn avalos Type: BLOOD SPECIMEN Ordering Facility: [facility] Address: [address] [address] Result Comment: <130 mg/dL, Optimal 130-159 mg/dL, Near optimal/above optimal 160-189 mg/dL, Borderline high 190-219 mg/dL, High >219 mg/dL, Very high Secondary prevention optimal non HDL Cholesterol levels are recommended to be <100 mg/dL Performed By: #### 2 4323-8, LIPB #### [facility] [place] [facility] CLIA [id number] [address] [place] [address] [facility] [place] Cholesterol.total/Choles terol in HDL [Mass ratio] 5.37 {ratio} High <5.10 [facility] Comment on above: Order Comment: Speci men Type: BLOOD SPECIMEN Ordering Facility: [facility] Address: [address] [place] [address] Performed By: #### 2 4323-8, LIPB #### [facility] [place] [facility] CLIA [id number] [address] OF [facility] FASTING TIME 12 hrs Normal [facility] Comment on above: Order Comment: Speci men Type: BLOOD SPECIMEN Ordering Facility: [facility] Address: [address] [place] [address] Performed By: #### 2 4323-8, LIPB #### [facility] [place] [facility] CLIA [id number] [address] [place] [address] [facility] [place] Triglyceride [Mass/Vol] 234 mg/dL High <150 [facility] Comment on above: Order Comment: Speci men Type: BLOOD SPECIMEN Ordering Facility: [facility] Address: [address] [place] [address] Result Comment: <150 mg/dL, Normal 150-199 mg/dL, Borderline high 200-499 mg/dL, High >499 mg/dL, Very high Performed By: #### 2 4323-8, LIPB #### [facility] [place] [facility] CLIA [id number] [address] [id number] [facility] [place] PSA/PROSTSPECAG SCRNon 09-20 Prostate specific Ag [Mass/Vol] 1.53 ng/mL Normal 0.00-3.90 [facility] Comment on above: Order Comment: Speci men Type: BLOOD SPECIMEN Ordering Facility: [facility] Address: [address] [place] [address] Result Comment: Tota l PSA test methodology used is the Direct Chemiluminometric technology. Performed By: #### P SAS1 #### [facility] CLIA [id number] [address] OF [facility] CNOVon 04-14-2021 CNOV Office Visit (AGINTMLW) GARRETT CACERES ([id number]) 1960 M Date Time Provider Department 04/14/21 8:20 AM KHOA HERNANDEZ AGINTMLW During your visit today, we recorded the following information about you: Temperature Pulse Respiration Blood pressure 97.7 degrees 67/minute 18/minute 122/78 Weight Height 114.3 kg 1.778 m Khoa Hernandez MD 04/14/2021 8:39 AM Signed This note was created using [employer]. Subjective Garrett Caceres is a 59 year [...] is no history of kidney disease or CAD/NE. There is no history of chronic renal [...] self-injury an (more content not included)... Normal [facility] CNCOon 04-13-[address] [facility] CNPNon 04-13-2021 CNPN Telephone (AGINTMLW) GARRETT CACERES ([id number]) 1960 M Date Time Provider Department 04/13/21 KHOA HERNANDEZMLRegine During your visit today, we recorded the [...] Encounter Status:Closed by SALMA QUARLES on 04/13/21 [facility] Radha 01-10-2021 CNPN Telephone (AGINTMLW) GARRETT CACERES ([id number]) 1960 M Date Time Provider Department 01/10/21 KHOA HERNANDEZ AGINTMLRegine During your visit today, we recorded the [...] Visit Diagnosis:Elevated hemoglobin A1c [R73.09] Order(s):HGB A1C [CYFTR7A] Order #: [id number] FUTURE Prescriptions as of 01/10/2021 - lisinopril [...] Status:Closed by KHOA HERNANDEZ on 01/10/[address] [facility] Vital Signs Date Time Vital Sign Value Performing Clinician Facility 01-09-2025 08:15-0400 Body temperature 98.5 [degF] Susana BADILLOC Work Phone: [facility] 01-09-2025 08:15-0400 Diastolic blood pressure 70 mm[Hg] Susana BADILLOC Work Phone: [facility] 01-09-2025 08:15-0400 Heart rate 69 /min Susana BADILLOC Work Phone: [facility] 01-09-2025 08:15-0400 Respiratory rate 16 /min Susana BADILLOC Work Phone: [facility] 01-09-2025 08:15-0400 SaO2% (BldA) [Mass fraction] 95 % Susana Bharathi CARD BOXER-C Work Phone: [facility] [facility] 01-09-2025 08:15-0400 Systolic blood pressure 127 mm[Hg] Susana Bharathi CARD BOXER-C Work Phone: [facility] 01-09-2025 06:38-0400 Body height 175.26 cm Susana Bharathi CARD BOXER-C Work Phone: [facility] 01-09-2025 06:38-0400 Body mass index (BMI) [Ratio] 35.8 kg/m2 Susana Bharathi CARD BOXER-C Work Phone: [facility] 01-09-2025 06:38-0400 Body weight 110 kg Susana Bharathi CARD BOXER-C Work Phone: [facility] 10-13-2021 12:09-0400 Diastolic blood pressure 76 mm[Hg] Nel Sheets DO Work Phone: [facility] 10-13-2021 12:09-0400 Systolic blood pressure 128 mm[Hg] Nel Sheets DO Work Phone: [facility] 10-13-2021 11:59-0400 Body height 177.8 cm Nel Sheets DO Work Phone: [facility] 10-13-2021 11:59-0400 Body temperature 98.01 [degF] Nel Sheets DO Work Phone: [facility] 10-13-2021 11:59-0400 Body weight 121.47 kg Nel Sheets DO Work Phone: [facility] 10-13-2021 11:59-0400 Heart rate 108 /min Nel Sheets DO Work Phone: [facility] 10-13-2021 11:59-0400 Respiratory rate 16 /min Nel Sheets DO Work Phone: [facility] 10-13-2021 11:59-0400 SaO2% (BldA) [Mass fraction] 97 % Nel Sheets DO Work Phone: [facility] Encounters Encounter Date Encounter Type Care Provider Facility Start: 02-03-2025 ambulatory [place] Facility:[facility] Start: 01-09-2025 ambulatory Alex Lawson lity:[facility] Start: 01-09-2025 Non-patient / Non-visit Dr. Odette Delarosa MD -[facility] Start: 01-09-2025 End: 01-09-2025 Admission to same day surgery center Dr. Alex Delarosa MD -Endoscopy Work Phone: Start: 01-09-2025 End: 01-09-2025 ambulatory Susana Garvin CARD BOXER-C Work Phone: -Endoscopy Start: 12-12-2024 Non-patient / Non-visit [facility] Work Phone: Start: 12-12-2024 ambulatory Susana Garvin [facility] Fa cility:[facility] Start: 11-18-2024 End: 11-18-2024 ambulatory Susana Garvin CARD BOXER-C Work Phone: [facility] Work Phone: Start: 11-18-2024 End: 11-18-2024 Patient encounter procedure [facility] Susana Garvin CARD BOXER-C -[facility]atory [facility] Start: 11-18-2024 End: 11-18-2024 ambulatory Susana Garvin [facility] Facility:[facility] Start: 02-26-2024 End: 02-[facility] Start: 10-23-2023 End: 10-23-2023 ambulatory [facility] Work Phone: Start: 10-23-2023 End: 10-23-2023 Patient encounter procedure [facility]-Laboratory Work Phone: Start: 10-08-2023 Refill Nel C She ets DO Work Phone: [facility] Comment on above: Refill Request Start: 09-06-2023 Refill Nel C She ets DO Work Phone: [facility] Comment on above: Refill Request Start: 08-06-2023 Refill Nel Stephens She ets DO Work Phone: [facility] Comment on above: Refill Request Start: 03-28-2023 Refill Nel C She ets DO Work Phone: [facility] Comment on above: Refill Request Start: 12-21-2022 Refill Nel C She ets DO Work Phone: [facility] Comment on above: Refill Request Start: 06-14-2022 Refill Nel C She ets DO Work Phone: [facility] Comment on above: Refill Request Start: 11-11-2021 ambulatory Nel C Lissa ets DO Work Phone: [facility] Comment on above: Prescriptions Start: 10-13-2021 End: 10-13-2021 Patient encounter procedure Nel Stephens Sheets DO Work Phone: [facility] Comment on above: Hypertension, essent ial (Primary Dx); Hyperlipidemia, mixed; BMI 38.0-38.9,adult; Obesity, Class II, BMI 35-39.9 Start: 09-21-2021 Telephone encounter Nel Stephens Sheets DO Work Phone: [facility] Comment on above: Results Start: 09-20-2021 Telephone encounter Khoa grullon MD Work Phone: [facility] Comment on above: Results Procedures Date Procedure Procedure Detail Performing Clinician Start: 01-09-2025 Colonoscopy Susana neal CARD BOXER-C Work Phone: Start: 11-18-2024 Prostate specific an tigen measurement Susana Garvin CARD BOXER-C Work Phone: Comment on above: This test [...] panel - S carlos enrique or Plasma Nel Alvarez DO Work Phone: Start: 04-14-2021 Adult depression scr eening assessment Khoa Hernandez MD Work Phone: Plan of Treatment Date Care Activity Detail Author Start: 09-20-2026 Lipid 1996 panel - S carlos enrique or Plasma Lipid Screening [facility] Start: 09-20-2026 Lipid panel Lipid Screening [facility] Start: 09-20-2026 LIPID SCREEN LIPID SCREEN [facility] Start: 09-20-2026 PROSTATE CANCER SCREENING DISCUSSION PROSTATE CANCER SCREENING DISCUSSION [facility] Start: 09-20-2026 Prostate specific antigen measurement Prostate Cancer Screening Discussion [facility] Start: 01-09-2025 Patient discharge [facility] Start: 09-20-2024 DIABETES SCREEN DIABETES SCREEN [facility] Start: 09-20-2024 Diabetes Screening Diabetes Screenin g [facility] Start: 08-29-2024 PROSTATE CANCER SCREENING DISCUSSION PROSTATE CANCER SCREENING DISCUSSION [facility] Start: 03-02-2024 Influenza vaccination Influenz a Vaccine (Season Ended) [facility] Start: 07-02-2023 Behavioral Health Screening Behavioral Health Screening [facility] Start: 07-02-2023 Depression Assessment Depression Ass essment [facility] Start: 03-11-2023 COLOGUARD (FIT-DNA) COLOGUARD (FIT-D NA) [facility] Start: 03-11-2023 COLORECTAL CANCER SCREENING COLORECTAL CANCER SCREENING [facility] Start: 03-11-2023 Screening for malign ant neoplasm of colon [facility] Start: 03-02-2023 Covid-19 Vaccine ( season) Covid-19 Vaccine () [facility] Start: 03-02-2023 Influenza vaccination C [facility] Start: 10-13-2022 ANNUAL PCP TEAM PATENT PROSECUTION PARALEGAL ERIKA DISEASE VISIT ANNUAL PCP TEAM CHRONIC DISEASE VISIT [facility] Start: 10-13-2022 BP CONTROLLED (<130/80) BP CONTROLLE D (<130/80) [facility] Start: 09-02-2022 HEPATITIS C SCREENING HEPATITIS C SC STEF [facility] Comment on above: Postponed from 04/19 (Declined at this time) Start: 09-02-2022 HIV SCREENING HIV SCREENING [facility] Comment on above: Postponed from 04/19 (Declined at this time) Start: 07-02-2022 DEPRESSION ASSESSMENT DEPRESSION ASS [facility] Start: 04-14-2022 Adult depression screening assessment DEPRESSION SCREENING [facility] Start: 04-14-2022 ANNUAL PCP TEAM PATENT PROSECUTION PARALEGAL ERIKA DISEASE VISIT ANNUAL PCP TEAM CHRONIC DISEASE VISIT [facility] Start: 04-14-2022 BP CONTROLLED (<130/80) BP CONTROLLE D (<130/80) [facility] Start: 04-14-2022 COVID-19 VACCINE (#1) COVID-19 VACCI NE (#1) [facility] Comment on above: Postponed from 04/19 (Declined at this time) Start: 04-14-2022 COVID-19 VACCINE (1) COVID-19 VACCIN E (1) [facility] Comment on above: Postponed from 04/19 (Declined at this time) Start: 04-14-2022 SHINGRIX VACCINE (1 of 2) SHINGRIX VACCINE (1 of 2) [facility] Comment on above: Postponed from 04/19 (Declined at this time) Start: 04-14-2022 Urine microalbumin profile DTAP,TDAP,TD (1 - Tdap) [facility] Comment on above: Postponed from 04/19 (Declined at this time) Start: 03-02-2022 Influenza vaccination C [facility] Start: 12-29-2021 Influenza vaccination INFLUENZA (#1) [facility] Comment on above: Postponed from 03/02 (Declined at this time) Start: 07-02-2021 DEPRESSION ASS[facility]MENT [facility] Start: 2019 RSV Vaccine (1 - 1-d ose 60+ series) RSV Vaccine (1 - 1-dose 60+ series) [facility] Start: 2009 Influenza vaccination [facility] Start: 2009 SHINGRIX VACCINE (1 of 2) SHINGRIX VACCINE (1 of 2) [facility] Start: 2004 Colonoscopy COLONOSCOPY [facility] Start: [address] COLONOGRAPHY [facility] Start: 2004 FECAL OCCULT BLOOD FECAL OCCULT BLOO D [facility] Start: 2004 Screening for malign ant neoplasm of colon [facility] Start: 2004 SIGMOIDOSCOPY SIGMOIDOSCOPY [facility] Start: 1978 Urine microalbumin profile [facility] Start: 1977 HEPATITIS C SCREENING HEPATITIS C [facility] Start: 1977 Hepatitis C screening Hepatitis C [facility] Start: 1977 HIV SCREENING HIV SCREENING [facility] Start: 1977 HIV screening HIV Screening [facility] Start: 1959 COVID-19 VACCINE (#1) COVID-19 VACCI NE (#1) [facility] Payers Date Payer Category Payer Medicare [id number] 2024 Medicare [id number] 2024 Medicare [id number] 2024 Self-pay 2024 Unknown [id number] 2022 Unknown [facility] [id number] 2022-Present Other [id number] 2013 Private Health Insurance AETNA AETNA CHOICE POS II [id number] 2013-Present [phone] [address] [place] [address] POS [id number] Private Health Insurance [id number] Unknown COMMERCIAL OTHER [id number] Unknown [id number] Unknown [id number] Unknown [id number] Unknown [id number] Unknown [id number] Unknown [id number] Unknown [id number] Social History Date Type Detail Facility Start: 03-02-2020 End: 01-09-2025 Tobacco smoking status NHIS Ex-smoker [facility] End: 08-30-2012 History of tobacco use Current smoker [facility] Start: 03-02-2020 End: 08-16-2023 Cigarettes smoked current (pack per day) - Reported 3 [facility] Start: 03-02-2020 Tobacco use and exposure Smokeless tobacco non-user [facility] Start: 04-14-2021 End: 10-13-2021 Alcohol intake Current drinker of alcohol (finding) [facility] Start: 03-02-2020 History SDOH Alcohol Binge 3 [facility] Start: 03-02-2020 History SDOH Alcohol Comment social [facility] Start: 1960 Sex Assigned At Not on file [facility] Start: 09-10-2021 End: 10-13-2021 Exposure to SARS-CoV-2 (event) Not sure [facility] End: 08-30-2012 History of tobacco use Cigarette Smoker [facility] Start: 03-02-2020 End: 08-16-2023 Alcohol Use Disorder Identification Test - Consumption [AUDIT-C] [facility] Frequency of Alcohol Consumption Not on file [facility] How often do you hav e 6 or more drinks on 1 occasion? Monthly [facility] Start: 02-29-2020 Gender identity Identifies as male gender (finding) [facility] Start: 02-29-2020 Sexual orientation Heterosexual (finding) [facility] Start: 1960 Sex Assigned At Male [facility] Tobacco smoking stat us NHIS Unknown if ever smoked [facility] Work Phone: Medical Equipment Procedure Code Equipment Code Equipment Original Text Equipment Identifier Dates Start: 08-30-2020 Comment on above: Use as instructed, a s covered by insurance Inject 1 Lancet subc utaneously once daily. As covered by insurance Goals Date Patient Goal Desired Activity /State Mental Status Date Assessment Result Facility 01-09-2025 Cognitive function Voice/Name [facility] Work Phone: Clinical Notes 04-14-2021 to 01-09-2025 Note Date & Type Note Facility 01-09-2025 Evaluation note Diagnosis Onset Date Resolution Screen for colon cancer acute January 09, 2025 6:13am [facility] Work Phone: 1(830) 551-364707-11-2025 Consult note [facility] Medical Records Department [address] [place] [address] Anesthesia Postop Eval I 01/09/25 0759 MR#: [id number] Acct: [id number] Name: GARRETT CACERES Rep #:[id number] : 1960 64 From: Dallin Carrera PCP: DINORAH Fall, CARD BOXER-C Statu s:REG SDC Y Race: C Location: [place] [address] Anesthesia: Postop Eval I Current Vital Signs Temperature: 98.6 F Pulse Rate: 67 Blood Pressure: 116/68 Respiratory Rate: 16 Pulse Ox: 92 Oxygen Delivery Method: Room Air Assessment Airway patent: Yes Spontaneous unlabored respirations: Yes Mental status: Asleep nausea: No Vomiting: No Anesthesia Complication: No Fluid Hydration Crystalloid volume administer (ml): 500 Total IV fluid infused: 500 Progress Note Anesthesia document: Postop Eval 1 completed: Yes 01/09/25 0800 > Date _ Dallin Carrera Cosigner Signature: Date CC: ~ Signed [facility]07-11-2025 Procedure note [facility] Medical Records Department [address] [place] [address] Colonoscopy Report MR#: [id number] Acct: [id number] Name: GARRETT CACERES Rep #:[id number] : 1960 64 From: Alex schmid MD PCP: DINORAH Fall, CARD BOXERHerminioC Statu s:REG SDC Patient Name: Garrett Caceres Procedure Date: 01/09/2025 7:17 AM Date of : 1960 Age: 64 Procedure: Colonoscopy Indications: Screening for colorectal malignant neoplasm Providers: Alex Delarosa MD Referring MD: Susana Copeland, Ean Medicines: Propofol per Anesthesia Patient Profile: This is a 64 year old male. Refer to note in patient chart for documentation of history and physical. Last Colonoscopy: none. The patient's first colonoscopy is today. Complications: No immediate complications. Procedure: Pre-Anesthesia Assessment: - Prior to the procedure, a History and Physical was performed, and patient medications and allergies were reviewed. The patient's tolerance of previous anesthesia was also reviewed. The risks and benefits of the procedure and the sedation options and risks were discussed with the patient. All questions were answered, and informed consent was obtained. Prior Anticoagulants: The patient has taken no anticoagulant or antiplatelet agents. After reviewing the risks and benefits, the patient was deemed in satisfactory condition to undergo the procedure. After I obtained informed consent, the scope was passed under direct vision. Throughout the procedure, the patient's blood pressure, pulse, and oxygen saturations were monitored continuously. The colonoscope was introduced through the anus and advanced to the cecum, identified by appendiceal orifice and ileocecal valve. The colonoscopy was performed without difficulty. The patient tolerated the procedure well. The quality of the bowel preparation was good. The ileocecal valve, appendiceal orifice, and rectum were photographed. Scope In: 7:35:54 AM Scope Withdrawal Time 0 hours 6 minutes 5 seconds Scope Out: 7:48:58 AM Total Procedure Duration Time 0 hours 13 minutes 4 seconds Findings: The entire examined colon appeared normal on direct and retroflexion views. Impression: - The entire examined colon is normal on direct and retroflexion views. - No specimens collected. Recommendation: - Discharge patient to home. - Resume previous diet. - Continue present medications. - Repeat colonoscopy in 10 years for screening purposes. Procedure Code(s): --- Professional --- 48518, Colonoscopy, flexible; diagnostic, including collection of specimen(s) by brushing or washing, when performed (separate procedure) Diagnosis Code(s): --- Professional --- Z12.11, Encounter for screening for malignant neoplasm of colon CPT copyright 2021 [employer]. All rights reserved. The codes documented in this report are preliminary and upon foot gatherer review may be revised to meet current compliance requirements. Alex Delarosa MD 01/09/2025 7:51:56 AM This report has been signed electronically. Number of Addenda: 0 Note Initiated On: 01/09/2025 7:17 AM 01/09/25 0752 Date _ Alex Delarosa MD Cosigner Signature: Date (if indicated) CC: DINORAH CARD BOXER-C Susana Garvin; Dr. Alex Delarosa MD ~ Date Dictated: 01/09/25716 Date Transcribed: Paint Specialist: AC Signed [facility]07-11-2025 Procedure note [facility] Medical Records Department [address] [place] [address] Operative Report - CC Letter MR#: [id number] Acct: [id number] Name: GARRETT CACERES Rep #:[id number] : 1960 64 From: Alex schmid MD PCP: DINORAH Fall, CARD BOXER-C Statu s:REG SDC 01/09/2025 Susana Garvin angelo, Director Of Market Analysis-c Re : Colonoscopy procedure for Garrett Caceres Dear Bharathi This procedure was performed on Thursday, January 09, 2025. My impressions and recommendations are as follows: Impressions : - The entire examined colon is normal on direct and retroflexion views. - No specimens collected. Recommendations : - Discharge patient to home. - Resume previous diet. - Continue present medications. - Repeat colonoscopy in 10 years for screening purposes. My findings are described in the full procedure note, which is enclosed. If I can be of further assistance, please feel free to contact me at Doctor phone number(s): , Work: . Sincerely, Alex Delarosa MD 01/09/2025 7:51:56 AM This report has been signed electronically. 01/09/25 0752 Date _ Alex Delarosa MD Cosigner Signature: Date (if indicated) CC: [facility] CARD BOXER-C Susana Garvin; Dr. Alex Delarosa MD ~ Date Dictated: 01/09/25716 Date Transcribed: Paint Specialist: AC Signed [facility]07-11-2025 Consult note [facility] Medical Records Department [address] [place] [address] Pre-Anesthesia Evaluation 01/09/25725 MR#: [id number] Acct: [id number] Name: GARRETT CACERES Rep #:[id number] : 1960 64 From: Lucas Mcwilliams MD PCP: DINORAH Fall, CARD BOXER-C Statu s:REG SDC Y Race: C Location: [place] [address] ASA Classification* ASA Classification ASA Classification: 2 Assessment & Plan Anesthesia* Anesthesia Assessment Anesthesia Assessment: Discussed sedation and/or anesthesia options, risks, benefits, and alternatives with patient/parents/legal guardian/POA. Questions invited. The patient/parents/legal guardian/POA seems to understand and agrees to proceedwith anesthesia plan. Reviewed the physical assessment, medical history, allergy history and patient home medications list prior to surgery/procedure/anesthetic and documented any changes. Performed airway and anesthesia risk assessments. Anesthesia Type Anesthesia Type: MAC Anesthesia Focused Assessment* Temperature: 98 F Pulse Rate: 65 Blood Pressure: 155/73 Respiratory Rate: 16 Pulse Ox: 98 Airway Assessment Mouth opens: >3 cm Mallampati Score: II Labs Anesthesia Preop lab: CBC WBC 5.4 K/mm3 (4.4-11.0) 11/18/24 10:02 11/18/24 RBC 4.76 M/mm3 (4.6-6.2) 11/18/24 10:02 11/18/24 Hgb 14.6 g/dL (13.0-16.5) 11/18/24 10:02 11/18/24 Hct 42.5 % (40-54) 11/18/24 10:02 11/18/24 Plt Count 235 K/mm3 (150-450) 11/18/24 10:02 11/18/24 CHEMISTRY Potassium 4.5 mmol/L (3.3-5.1) 11/18/24 10:02 11/18/24 Sodium 138 mmol/L (133-145) 11/18/24 10:02 11/18/24 BUN 19 mg/dL (4-19) 11/18/24 10:02 11/18/24 Creatinine 0.78 mg/dL (0.70-1.20) 11/18/24 10:02 11/18/24 Glucose 152 mg/dL (70-99) H 11/18/24 10:02 11/18/24 TSH 1.370 uIU/mL (0.358-3.740) 02/26/24 09:47 01/31 01/22 COAG Pre-Assessment Diagnosis/Proposed Procedure Planned Operative Procedure(s): COLONOSCOPY Anesthesia History Anesthesia History - systems spec: Anesthesia History - systems spec Hx Hospitalization No 01/09/25 07:20 Any Problems With Anesthesia No 01/09/25 07:20 Cholinesterase deficiency No 01/09/25 07:20 You/Your Family Experience No 01/09/25 07:20 fever (hyperthermia) with Relationship Recent Exposure to Contagious No 01/09/25 07:20 Disease Does patient have nerve No 01/09/25 07:20 stimulator Patient instructed to have device shut off --Does patient have Pacemaker No 01/09/25 06:38 or ICD? When Was Last Pacemaker Check QUESTION #4 FULL TEXT: You/Your Family Experience fever (hyperthermia) with Anesthesia Last Oral Intake Last Oral intake: Last Oral Intake NPO since 00:00 01/09/25 06:38 Meds taken in AM with sips of water? Meds patient instructed to take am of surgery PONV PONV - systems spec: PONV - systems spec Female No 01/08/25 09:44 HX of Motion Sickness No 01/08/25 09:44 HX of N/V After Surgery No 01/08/25 09:44 Non-Smoker Yes 01/08/25 09:44 Duration of Surgery greater No 01/08/25 09:44 than 60 minutes Number of Risk Factors 1 01/08/25 09:44 PONV Score Low Risk 01/08/25 09:44 Height & Weight Height & Weight: Anesthesia: Height & Weight Height 5 ft 9 in 01/09/25 06:38 Weight: 110 kg 01/09/25 06:38 Body Mass Index (BMI) 35.8 01/09/25 06:38 Respiratory Assessment Respiratory Assessment - systems spec: Respiratory Tract Infection Hx - systems spec Hx Respiratory Tract Infection No 01/09/25 07:20 STOP Sleep Apnea STOP Sleep Apnea - systems spec: STOP Sleep Apnea - systems spec Hx Hypertension Yes: CONTROLLED WITH MEDS 01/09/25 07:20 Hx Sleep Apnea No 01/09/25 07:20 CPAP BIPAP Do you snore loudly (louder Yes 01/09/25 07:20 than talking or can be heard Do you often feel tired/ No 01/09/25 07:20 fatigued/ sleepy during daytime? Has anyone observed you stop No 01/09/25 07:20 breathing during sleep? STOP Results Positive 01/09/25 07:20 QUESTION #5 FULL TEXT : Do you snore loudly (louder than talking or can be heard through closeddoors)? 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 Specify any problems Hx of Preganancy in last 3 N/A 01/08/25 09:44 Months Nurse Filling Out Transfusion [email or web address] 01/08/25 09:44 & Questions: Date: 01/08/25 01/08/25 09:44 Time: 09:47 01/08/25 09:44 Patient unable to answer at this time (ie. confused, unrespo /Reproduction History /Reproductive History - systems spec: /Reproductive Hx- systems spec Hx Now Gestational Age (in weeks): EDC: Hx Hx Para Hx Section SAB Active Medications Active Medications: Current Medications Generic Name Dose Route Start Last Admin Trade Name Freq PRN Reason Stop Dose Admin Lactated Ringer's 1,000 mls @ 15 mls/hr 01/09/25 06:30 01/09/25 06:41 IV 15 mls/hr .Q48H CAROLYN Administration PFSH Medical History Wears dentures High cholesterol Former smoker Hypertension History of stress test Home Medications ?Medication ?Instructions ?Recorded ?Last Taken ?Type aspirin 81 mg tablet 81 mg PO QDAY 12/12/2401/04 History atorvastatin 10 mg tablet (Lipitor) 10 mg PO QHS 12/1201/08/25 History lisinopril 20 mg tablet 20 mg PO QDAY 12/12/2401/08 History metformin 1,000 mg tablet 1,000 mg PO BID 12/12/2404/25 History Allergy/AdvReac Type Severity Reaction Status Date / Time Penicillins (PCN) Allergy Severe Other Verified 01/09/25 06:22 Surgical History H/O removal of cyst Social History Smoking Status: Former smoker Review of Systems (Anesthesia) ROS Narrative System reviewed and no additional complaints, except as documented. 01/09/25726 > Date _ Lucas Mcwilliams MD Cosigner Signature: Date CC: ~ Signed [facility]07-11-2025 History and physical note [facility] Medical Records Department [address] [place] [address] History & Physical Exam 01/09/25718 MR#: [id number] Acct: [id number] Name: GARRETT CACERES Rep #:[id number] : 1960 64 From: Alex schmid MD PCP: Susana Garvin Angelo, CARD BOXER-C [place] Location: [place] [address] HPI - General HPI Narrative GARRETT CACERES, is a 64 M who presents for screening colonoscopy. He has [facility]a colon[facility] in [facility]. He had a Cologuard about 8 years ago which was negative. He denies abdominal pain or blood inthe stool. He has no family history of colon cancer. [facility] Medical History (Updated 01/09/25 @ 07:[address] Alex Delarosa MD) Wears dentures High cholesterol Former smoker Hypertension History of stress test Home Medications ?Medication ?Instructions ?Recorded ?Last Taken ?Type aspirin 81 mg tablet 81 mg PO QDAY 12/12/2401/04 History atorvastatin 10 mg tablet (Lipitor) 10 mg PO QHS 12/1201/08/25 History lisinopril 20 mg tablet 20 mg PO QDAY 12/12/2401/08 History metformin 1,000 mg tablet 1,000 mg PO BID 12/12/2404/25 History Allergy/AdvReac Type Severity Reaction Status Date / Time Penicillins (PCN) Allergy Severe Other Verified 01/09/25 06:22 Surgical History H/O removal of cyst Social History Smoking Status: Former smoker Past Medical/Surgical History Planned Operation Planned Operative Procedure(s): COLONOSCOPY Previous Hospitalizations/Surgeries HX Hospitalizations: No Any Problems With Anesthesia: No You/Your Family Experience Fever (Hyperthermia) With Anes: No Cholinesterase deficiency: No Cardiovascular Hx Hypertension: Yes (CONTROLLED WITH MEDS) Respiratory Hx Sleep Apnea: No Hx Respiratory Tract Infection/Cold (presently): No Do You Snore Loudly (louder than talking or can be heard): Yes Do You Often Feel Tired/ Fatigued/ Sleepy Dring Daytime?: No Has Anyone Observed You Stop Breathing During Sleep?: No Result (for STOP score): Positive Smoking Status: Former smoker Neurological Does patient have nerve stimulator: No Miscellaneous Recent Exposure to Contagious Disease: No Allergies Penicillins (PCN) Allergy (Severe, Verified 01/09/25 06:22) Other Discharge After D/C, Where Do you Plan to Go: Return Home Vital Signs Vital Signs Vital Signs: 01/09/25 06:38 01/09/25 06:38 Temperature 98 F Temperature Source Temporal Pulse Rate 65 Respiratory Rate 16 Respiratory Pattern Normal Blood Pressure 155/73 H Blood Pressure Mean 100 Blood Pressure Source Monitor Blood Pressure Position Semi-Fowlers Blood Pressure Location Right Arm Pulse Ox 98 Oxygen Delivery Method Room Air Weight Weight: 242 lb 8.136 oz Body Mass Index (BMI) 35.8 Physical Exam Const alert and oriented x3 HEENT normocephalic Eyes PERRL Resp normal respiratory effort and normal air movement Cardio regular rate and regular rhythm GI soft to palpation, non-tender and non-distended Extremity normal to inspection Assessment & Plan Assessment/Plan (1) Screen for colon cancer: PLAN: I explained endoscopy in detail to the patient. I explained the risks including but not limited to stroke or heart attack with anesthesia, perforationof the GI tract, bleeding, infection. I explained that any of these could necessitate further emergency surgery. The patient understands and all questions were answered sufficiently. The patient wishes to proceed with procedure. Alex Delarosa MD Pager: [facility] [address], [address] [place] [address] Office: Surgery Risks - Colonoscopy Risks Include but are not Limited To: Risks include but are not limited to: Bleeding, perforation requiring further surgery, inability to complete colonoscopy requiring barium enema. 01/09/25 07 Cosigner Signature (if applicable): CC: DINORAH CARD BOXER-C Susana Garvin; Dr. Alex Delarosa MD~ Signed [facility]07-11-2025 [facility] Medical Records Department [address] [place] [address] History Physical Exam 01/09/25718 MR#: [id number] Acct: [id number] Name: GARRETT CACERES Rep #: [id number] : 1960 64 From: Alex Delarosa MD PCP: DINORAH Fall, CARD BOXER-C [place] Location: [place] [address] HPI - General HPI Narrative GARRETT CACERES, is a 64 M who presents for screening colonoscopy. He has never had a colonoscopy in the past. He had a Cologuard about 8 years ago which was negative. He denies abdominal pain or blood in the stool. He has no family history of colon cancer. [facility] Medical History (Updated 01/09/25 @ 07:[address] Alex Delarosa MD) Wears dentures High cholesterol Former smoker Hypertension History of stress test Home Medications ???Medication ???Instructions ???Recorded ???Last Taken ???Type aspirin 81 mg tablet 81 mg PO QDAY 12/12/24 01/04/25 Hi story atorvastatin 10 mg tablet (Lipitor) 10 mg PO QHS 12/12/24 01/08/25 History lisinopril 20 mg tablet 20 mg PO QDAY 12/12/24 01/08/25 Hi story metformin 1,000 mg tablet 1,000 mg PO BID 12/12/24 01/08/25 History Allergy/AdvReac Type Severity Reaction Status Date / Time Penicillins (PCN) Allergy Severe Other Verified 01/09/25 06:22 Surgical History H/O removal of cyst Social History Smoking Status: Former smoker Past Medical/Surgical History Planned Operation Planned Operative Procedure(s): COLONOSCOPY Previous Hospitalizations/Surgeries HX Hospitalizations: No Any Problems With Anesthesia: No You/Your Family Experience Fever (Hyperthermia) With Anes: No Cholinesterase deficiency: No Cardiovascular Hx Hypertension: Yes (CONTROLLED WITH MEDS) Respiratory Hx Sleep Apnea: No Hx Respiratory Tract Infection/Cold (presently): No Do You Snore Loudly (louder than talking or can be heard): Yes Do You Often Feel Tired/ Fatigued/ Sleepy Dring Daytime?: No Has Anyone Observed You Stop Breathing During Sleep?: No Result (for STOP score): Positive Smoking Status: Former smoker Neurological Does patient have nerve stimulator: No Miscellaneous Recent Exposure to Contagious Disease: No Allergies Penicillins (PCN) Allergy (Severe, Verified 01/09/25 06:22) Other Discharge After D/C, Where Do you Plan to Go: Return Home Vital Signs Vital Signs Vital Signs: 01/09/25 06:38 01/09/25 06:38 Temperature 98 F Temperature Source Temporal Pulse Rate 65 Respiratory Rate 16 Respiratory Pattern Normal Blood Pressure 155/73 H Blood Pressure Mean 100 Blood Pressure Source Monitor Blood Pressure Position Semi-Fowlers Blood Pressure Location Right Arm Pulse Ox 98 Oxygen Delivery Method Room Air Weight Weight: 242 lb 8.136 oz Body Mass Index (BMI) 35.8 Physical Exam Const alert and oriented x3 HEENT normocephalic Eyes PERRL Resp normal respiratory effort and normal air movement Cardio regular rate and regular rhythm GI soft to palpation, non-tender and non-distended Extremity normal to inspection Assessment Plan Assessment/Plan (1) Screen for colon cancer: PLAN: I explained endoscopy in detail to the patient. I explained the risks including but not limited to stroke or heart attack with anesthesia, perforation of the GI tract, bleeding, infection. I explained that any of these could necessitate further emergency surgery. The patient understands and all questions were answered sufficiently. The patient wishes to proceed with procedure. Alex Delarosa MD Pager: [facility] [address] [place] [address], [address] [place] [address] Office: Surgery Risks - Colonoscopy Risks Include but are not Limited To: Risks include but are not limited to: Bleeding, perforation requiring further surgery, inability to complete colonoscopy requiring barium enema. 01/09/25 0720 Cosigner Signature (if applicable): CC: [facility] CARD BOXERHerminioC Susana Garvin; Dr. Alex Delarosa MD [facility]04-08-2024 Miscellaneous Notes* Telephone Encounter - Ana Luisa Barillas MA - 10/08/2023 1:16 PM EDT Pharmacy requesting refills as follows: Last Office Visit 10/13/21 NOV none. Last Refill 09/06/23. Patient scheduled with the [facility] on 10/23/23 and he is working on [...] mouth once daily Please review and advise. Ana Luisa Barillas MA [facility] Miscellaneous Notes* Telephone Encounter - Ana Luisa Barillas MA - 09/07/2023 7:58 AM EST Patient is informed Ana Luisa Barillas MA * Telephone Encounter - Nel Alvarez DO - 09/06/2023 8:01 PM EST Please notify pt I sent in his Rx. He may want to contact the [facility] in [place] at [phone]. They may be able to take care of him since he does not have insurance Nel Alvarez DO * Telephone Encounter - Jessica Benson MA - 09/06/2023 11:53 AM EST pharmacy electronically requesting refills as follows: Last [...] advise. Jessica Benson MA documented [facility]02-06-2024 Miscellaneous Notes* Telephone Encounter - Ana Luisa Barillas MA - 08/07/2023 4:19 PM EST Left message informing patient, phone number to reach the office was left for any questions or concerns. Ana Luisa Barillas MA * Telephone Encounter - Nel Alvarez DO - 08/07/2023 4:04 PM EST Please notify pt he is overdue for f/u appt. I will send in #30 of both his prescriptions, but no more after that Nel Alvarez DO * Telephone Encounter - Jessica Benson MA - 08/06/2023 3:00 PM EST patient electronically requesting refills as follows: Last seen 10/13/21 . Last refill both 03/28/23 . Requested Prescriptions Pending Prescriptions Disp Refills lisinopril (ZESTRIL) 10 mg tablet 90 tablet 0 Sig: Take 1 tablet by mouth once daily. atorvastatin (LIPITOR) 10 mg tablet 90 tablet 0 Sig: Take 1 tablet by mouth once daily. Please review and advise. Jessica Benson MA documented in this [facility]Ch[facility]09-28-2023 Miscellaneous Notes* Telephone Encounter - Ana Luisa Barillas MA - 03/29/2023 5:31 PM EDT Patient is informed Ana Luisa Barillas MA * Telephone Encounter - Nel Alvarez DO - 03/28/2023 10:48 AM EDT Please notify pt he is overdue for appt Nel Alvarez DO * Telephone Encounter - Aylin Shabazz MA - 03/28/2023 10:39 AM EDT Pharmacy requesting refills: Last office visit 10/13/21. Last refill 12/21/22. Requested Prescriptions Pending Prescriptions Disp Refills atorvastatin (LIPITOR) 10 mg tablet [Pharmacy Med Name: atorvastatin 10 mg tablet] 90 tablet 0 Sig: take 1 tablet by mouth once daily Please review and advise. Aylin Shabazz MA p documented in this encounterCh[facility]06-22-2023 Miscellaneous Notes* Telephone Encounter - Jessica Benson MA - 12/21/2022 9:28 AM EDT pharmacy electronically requesting refills as follows: Last [...] advise. Jessica Benson MA documented in this [facility]Ch[facility]12-14-2022 Miscellaneous Notes* Telephone Encounter - Jessica Benson MA - 06/14/2022 9:31 AM EST pharmacy electronically requesting refills as follows: Last [...] advise. Jessica Benson MA documented in [facility]Ch[facility]05-13-2022 Miscellaneous Notes* Telephone Encounter - Aylin Shabazz MA - 11/11/2021 8:43 AM EDT magdiel 10/13/2021 Nov 04/14/2022 documented in this encounterCh[facility]04-14-2022 NoteHNO ID: [id number] Author: Nel Alvarez, DO Service: ? Author Type: Physician [...] and memory normal. Judg (more content not included)...[facility]04-14-2022 History of Present illness Narrative* Nel Alvarez DO - 10/13/2021 12:06 PM EDT Subjective The history is provided by the [...] (267 lb 12.8 oz) SpO2 97% BMI 38.43kg/m Physical Exam Constitutional: General: He is not [...] ICD9: 278.00, ICD10: E66.9 Lifestyle modification recommended Nel Alvarez DO documented in this encounterCh[facility]03-23-2022 Miscellaneous Notes* Telephone Encounter - Ana Luisa Barillas MA - 09/21/2021 11:04 AM EDT Patient is informed. Ana Luisa Barillas MA * Telephone Encounter - Ana Luisa Barillas MA - 09/21/2021 11:01 AM EDT ----- Message from Khoa Hernandez MD sent at 09/21/2021 11:00 AM EDT ----- Normal PSA documented in this encounterCh[facility]03-22-2022 Miscellaneous Notes* Telephone Encounter - Shruthi Cobb MA - 09/20/2021 4:57 PM EDT Called pt left VM for him to call the office back for results Shruthi Cobb MA * Telephone Encounter - Shruthi Cobb MA - 09/20/2021 4:56 PM EDT ----- Message from Khoa Hernandez MD sent at 09/20/2021 3:25 PM EDT ----- Patient's glucose is slightly elevated. Continue to monitor diet. His triglycerides and LDL are slightly elevated. Based on his risk score, he should be taking a cholesterol medication. If agreeable,will order. Remaining labs are fairly unremarkable. PSA still pending. documented in this encounterCh[facility]03-22-2022 Miscellaneous Notes* Telephone Encounter - Ana Luisa Barillas MA - 09/20/2021 2:23 PM EDT Patient informed. Ana Luisa Barillas MA * Telephone Encounter - Ana Luisa Barillas MA - 09/20/2021 2:22 PM EDT ----- Message from Khoa Hernandez MD sent at 09/20/2021 11:57 AM EDT ----- Normal CBC. Remaining labs are still pending. documented in this encounterChillic[facility]10-14-2021 NoteHNO ID: [id number] Author: Khoa Hernandez MD Service: ? Author Type: Physician Type: Progress Notes Filed: 04/14/2021 8:39 AM Note Text: This note was created using [employer]ham[employer]. Subjective Garrett Caceres is a 59 year [...] is no history of kidney disease or CAD/NE. There is no history of chronic renal [...] note reviewed. Constitutional: General: (more content not included)...[facility] note Author Lucas Mcwilliams [facility] Note Date/Time January 09, 2025 7:27 am [facility] Medical Records Department [address] [place] [address] Pre-Anesthesia Evaluation 01/09/25 0726 MR#: [id number] Acct: [id number] Name: NICKIGARRETT LUNA Rep #:[id number] : 1960 64 From: Lucas Mcwilliams MD PCP: Susana Garvin, [facility], CARD BOXER-C Statu s:REG SD[facility] Y Race: C Location: [place] [address] ASA Classification* ASA Classification ASA Classification: 2 Assessment & Plan Anesthesia* Anesthesia Assessment Anesthesia Assessment: Discussed sedation and/or anesthesia options, risks, benefits, and alternatives with patient/parents/legal guardian/POA. Questions invited. The patient/parents/legal guardian/POA seems to understand and agrees to proceedwith anesthesia plan. Reviewed the physical assessment, medical history, allergy history and patient home medications list prior to surgery/procedure/anesthetic and documented any changes. Performed airway and anesthesia risk assessments. Anesthesia Type Anesthesia Type: MAC Anesthesia Focused Assessment* Temperature: 98 F Pulse Rate: 65 Blood Pressure: 155/73 Respiratory Rate: 16 Pulse Ox: 98 Airway Assessment Mouth opens: >3 cm Mallampati Score: II Labs Anesthesia Preop lab: CBC WBC 5.4 K/mm3 (4.4-11.0) 11/18/24 10:02 11/18/24 RBC 4.76 M/mm3 (4.6-6.2) 11/18/24 10:02 11/18/24 Hgb 14.6 g/dL (13.0-16.5) 11/18/24 10:02 11/18/24 Hct 42.5 % (40-54) 11/18/24 10:02 11/18/24 Plt Count 235 K/mm3 (150-450) 11/18/24 10:02 11/18/24 CHEMISTRY Potassium 4.5 mmol/L (3.3-5.1) 11/18/24 10:02 11/18/24 Sodium 138 mmol/L (133-145) 11/18/24 10:02 11/18/24 BUN 19 mg/dL (4-19) 11/18/24 10:02 11/18/24 Creatinine 0.78 mg/dL (0.70-1.20) 11/18/24 10:02 11/18/24 Glucose 152 mg/dL (70-99) H 11/18/24 10:02 11/18/24 TSH 1.370 uIU/mL (0.358-3.740) 02/26/24 09:47 01/31 01/22 COAG Pre-Assessment Diagnosis/Proposed Procedure Planned Operative Procedure(s): COLONOSCOPY Anesthesia History Anesthesia History - systems spec: Anesthesia History - systems spec Hx Hospitalization No 01/09/25 07:20 Any Problems With Anesthesia No 01/09/25 07:20 Cholinesterase deficiency No 01/09/25 07:20 You/Your Family Experience No 01/09/25 07:20 fever (hyperthermia) with Relationship Recent Exposure to Contagious No 01/09/25 07:20 Disease Does patient have nerve No 01/09/25 07:20 stimulator Patient instructed to have device shut off --Does patient have Pacemaker No 01/09/25 06:38 or ICD? When Was Last Pacemaker Check QUESTION #4 FULL TEXT: You/Your Family Experience fever (hyperthermia) with Anesthesia Last Oral Intake Last Oral intake: Last Oral Intake NPO since 00:00 01/09/25 06:38 Meds taken in AM with sips of water? Meds patient instructed to take am of surgery PONV PONV - systems spec: PONV - systems spec Female No 01/08/25 09:44 HX of Motion Sickness No 01/08/25 09:44 HX of N/V After Surgery No 01/08/25 09:44 Non-Smoker Yes 01/08/25 09:44 Duration of Surgery greater No 01/08/25 09:44 than 60 minutes Number of Risk Factors 1 01/08/25 09:44 PONV Score Low Risk 01/08/25 09:44 Height & Weight Height & Weight: Anesthesia: Height & Weight Height 5 ft 9 in 01/09/25 06:38 Weight: 110 kg 01/09/25 06:38 Body Mass Index (BMI) 35.8 01/09/25 06:38 Respiratory Assessment Respiratory Assessment - systems spec: Respiratory Tract Infection Hx - systems spec Hx Respiratory Tract Infection No 01/09/25 07:20 STOP Sleep Apnea STOP Sleep Apnea - systems spec: STOP Sleep Apnea - systems spec Hx Hypertension Yes: CONTROLLED WITH MEDS 01/09/25 07:20 Hx Sleep Apnea No 01/09/25 07:20 CPAP BIPAP Do you snore loudly (louder Yes 01/09/25 07:20 than talking or can be heard Do you often feel tired/ No 01/09/25 07:20 fatigued/ sleepy during daytime? Has anyone observed you stop No 01/09/25 07:20 breathing during sleep? STOP Results Positive 01/09/25 07:20 QUESTION #5 FULL TEXT : Do you snore loudly (louder than talking or can be heard through closed doors)? 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 Specify any problems Hx of Preganancy in last 3 N/A 01/08/25 09:44 Months Nurse Filling Out Transfusion [id number] 01/08/25 09:44 & Questions: Date: 01/08/25 01/08/25 09:44 Time: 09:47 01/08/25 09:44 Patient unable to answer at this time (ie. confused, unrespo /Reproduction History /Reproductive History - systems spec: /Reproductive Hx- systems spec Hx Now Gestational Age (in weeks): EDC: Hx Hx Para Hx Section SAB Active Medications Active Medications: Current Medications Generic Name Dose Route Start Last Admin Trade Name Freq PRN Reason Stop Dose Admin Lactated Ringer's 1,000 mls @ 15 mls/hr 01/09/25 06:30 01/09/25 06:41 IV 15 mls/hr .Q48H CAROLYN Administration PFSH Medical History Wears dentures High cholesterol Former smoker Hypertension History of stress test Home Medications ?Medication ?Instructions ?Recorded ?Last Taken ?Type aspirin 81 mg tablet 81 mg PO QDAY 12/12/2401/04 History atorvastatin 10 mg tablet (Lipitor) 10 mg PO QHS 12/1201/08/25 History lisinopril 20 mg tablet 20 mg PO QDAY 12/12/2401/08 History metformin 1,000 mg tablet 1,000 mg PO BID 12/12/2404/25 History Allergy/AdvReac Type Severity Reaction Status Date / Time Penicillins (PCN) Allergy Severe Other Verified 01/09/25 06:22 Surgical History H/O removal of cyst Social History Smoking Status: Former smoker Review of Systems (Anesthesia) ROS Narrative System reviewed and no additional complaints, except as documented. 01/09/25726 <Electronically signed by Lucas Mcwilliams MD > Date _ Lucas Mcwilliams MD Cosigner Signature: Date CC: ~ Signed [facility] Work Phone: Consult note Author Dallin Carrera [facility] Note Date/Time January 09, 2025 8:00 am [facility] Medical Records Department [address] [place] [address] Anesthesia Postop Eval I 01/09/25 0759 MR#: [id number] Acct: [id number] Name: GARRETT CACERES Rep #:[id number] : 1960 64 From: Dallin Carrera PCP: DINORAH Fall, CARD BOXER-C Statu s:REG SD[facility] Y Race: C Location: [place] [address] Anesthesia: Postop Eval I Current Vital Signs Temperature: 98.6 F Pulse Rate: 67 Blood Pressure: 116/68 Respiratory Rate: 16 Pulse Ox: 92 Oxygen Delivery Method: Room Air Assessment Airway patent: Yes Spontaneous unlabored respirations: Yes Mental status: Asleep nausea: No Vomiting: No Anesthesia Complication: No Fluid Hydration Crystalloid volume administer (ml): 500 Total IV fluid infused: 500 Progress Note Anesthesia document: Postop Eval 1 completed: Yes 01/09/25 0800 <Electronically signed by Dallin Carrera > Date _ Dallin Yeboahignnorma Signature: Date CC: ~ Signed [facility] Work Phone: Evaluation note* Diagnosis Hypertension, essential- Primary Unspecified essential hypertension Hyperlipidemia, mixed Mixed hyperlipidemia BMI 38.0-38.9,adult Body Mass Index 38.0-38.9, adult Obesity, Class II, BMI 35-39.9 Obesity, unspecified [facility] Diagnosis Essential hypertension Unspecified essential hypertension documented in this encounter [facility] note* Diagnosis Essential hypertension Unspecified essential hypertension documented in this encounter [facility] note* Diagnosis Essential hypertension Unspecified essential hypertension documented in this encounter [facility] note* Diagnosis Essential hypertension Unspecified essential hypertension documented in this encounter [facility] note* Diagnosis Essential hypertension Unspecified essential hypertension documented in this encounter [facility] note* Diagnosis Essential hypertension Unspecified essential hypertension documented in this encounter [facility] noteNo assessment information availableWSumma [facility] Work Phone: History and physical note Author Alex Delarosa [facility] Note Date/Time January 09, 2025 7:20 am [facility] Medical Records Department [address] [place] [address] History & Physical Exam 01/09/25718 MR#: [id number] Acct: [id number] Name: GARRETT CACERES Rep #:[id number] : 1960 64 From: Alex schmid MD PCP: Susana Garvin, [facility], CARD BOXER-C Statu s[place] Location: [place] [address] HPI - General HPI Narrative GARRETT CACERES, is a 64 M who presents for screening colonoscopy. He has never hada colonoscopy in the past. He had a Cologuard about 8 years ago which was negative. He denies abdominal pain or blood in the stool. He has no family history of colon cancer. [facility] Medical History (Updated 01/09/25 @ 07:[address] Alex Delarosa MD) Wears dentures High cholesterol Former smoker Hypertension History of stress test Home Medications ?Medication ?Instructions ?Recorded ?Last Taken ?Type aspirin 81 mg tablet 81 mg PO QDAY 12/12/2401/04 History atorvastatin 10 mg tablet (Lipitor) 10 mg PO QHS 12/1201/08/25 History lisinopril 20 mg tablet 20 mg PO QDAY 12/12/2401/08 History metformin 1,000 mg tablet 1,000 mg PO BID 12/12/2404/25 History Allergy/AdvReac Type Severity Reaction Status Date / Time Penicillins (PCN) Allergy Severe Other Verified 01/09/25 06:22 Surgical History H/O removal of cyst Social History Smoking Status: Former smoker Past Medical/Surgical History Planned Operation Planned Operative Procedure(s): COLONOSCOPY Previous Hospitalizations/Surgeries HX Hospitalizations: No Any Problems With Anesthesia: No You/Your Family Experience Fever (Hyperthermia) With Anes: No Cholinesterase deficiency: No Cardiovascular Hx Hypertension: Yes (CONTROLLED WITH MEDS) Respiratory Hx Sleep Apnea: No Hx Respiratory Tract Infection/Cold (presently): No Do You Snore Loudly (louder than talking or can be heard): Yes Do You Often Feel Tired/ Fatigued/ Sleepy Dring Daytime?: No Has Anyone Observed You Stop Breathing During Sleep?: No Result (for STOP score): Positive Smoking Status: Former smoker Neurological Does patient have nerve stimulator: No Miscellaneous Recent Exposure to Contagious Disease: No Allergies Penicillins (PCN) Allergy (Severe, Verified 01/09/25 06:22) Other Discharge After D/C, Where Do you Plan to Go: Return Home Vital Signs Vital Signs Vital Signs: 01/09/25 06:38 01/09/25 06:38 Temperature 98 F Temperature Source Temporal Pulse Rate 65 Respiratory Rate 16 Respiratory Pattern Normal Blood Pressure 155/73 H Blood Pressure Mean 100 Blood Pressure Source Monitor Blood Pressure Position Semi-Fowlers Blood Pressure Location Right Arm Pulse Ox 98 Oxygen Delivery Method Room Air Weight Weight: 242 lb 8.136 oz Body Mass Index (BMI) 35.8 Physical Exam Const alert and oriented x3 HEENT normocephalic Eyes PERRL Resp normal respiratory effort and normal air movement Cardio regular rate and regular rhythm GI soft to palpation, non-tender and non-distended Extremity normal to inspection Assessment & Plan Assessment/Plan (1) Screen for colon cancer: PLAN: I explained endoscopy in detail to the patient. I explained the risks including but not limited to stroke or heart attack with anesthesia, perforationof the GI tract, bleeding, infection. I explained that any of these could necessitate further emergency surgery. The patient understands and all questions were answered sufficiently. The patient wishes to proceed with procedure. Alex Delarosa MD Pager: [facility] [address] [place] [address], [address] [place] [address] Office: Surgery Risks - Colonoscopy Risks Include but are not Limited To: Risks include but are not limited to: Bleeding, perforation requiring further surgery, inability to complete colonoscopy requiring barium enema. 01/09/25 0720 <Electronically signed by Alex Delarosa MD> Cosigner Signature (if applicable): CC: [facility] CARD [facility]OXER-Angelo Garvin; Dr. Alex Delarosa MD~ Signed [facility] Work Phone: Reason for referral (narrative)No reason for referral information availableWSumma Health [facility] Work Phone: Summary Purpose Family History No Family History Records FoundNo Family History Records FoundNo Family History Records Found Advance Directives No Advanced Directives Records Found Advance Directive Response Recorded Date/ Time Do you have a Healthcare Power of Draw Fire Operator? No January 08, 2025 9:44am Chief Complaint and Reason for Visit Chief Complaint Admit Date Amb Documentation December 12, 2024 9:28 am Reason for Visit Admit Date Screen for colon cancer January 09, 2025 6:13am Additional Source Comments Source Comments (unrecognize d section and content) In the event this informatio n is protected by the Federal Confidentiality of Alcohol and Drug Abuse Patient Records regulations: The Federal rules restrict any use of the information to criminally investigate or prosecute any alcohol or drug abuse patient.[facility] the event this information is protected by the Federal Confidentiality of Alcohol and Drug Abuse Patient Records regulations: The Federal rules restrict any use of the information to criminally investigate or prosecute any alcohol or drug abuse patient.[facility] the event this information is protected by the Federal Confidentiality of Alcohol and Drug Abuse Patient Records regulations: The Federal rules restrict any use of the information to criminally investigate or prosecute any alcohol or drug abuse patient.[facility] the event this information is protected by the Federal Confidentiality of Alcohol and Drug Abuse Patient Records regulations: The Federal rules restrict any use of the information to criminally investigate or prosecute any alcohol or drug abuse patient.[facility] the event this information is protected by the Federal Confidentiality of Alcohol and Drug Abuse Patient Records regulations: The Federal rules restrict any use of the information to criminally investigate or prosecute any alcohol or drug abuse patient.[facility] Center[facility] the event this information is protected by the Federal Confidentiality of Alcohol and Drug Abuse Patient Records regulations: The Federal rules restrict any use of the information to criminally investigate or prosecute any alcohol or drug abuse patient.[facility] Center[facility] the event this information is protected by the Federal Confidentiality of Alcohol and Drug Abuse Patient Records regulations: The Federal rules restrict any use of the information to criminally investigate or prosecute any alcohol or drug abuse patient.[facility] Center[facility] the event this information is protected by the Federal Confidentiality of Alcohol and Drug Abuse Patient Records regulations: The Federal rules restrict any use of the information to criminally investigate or prosecute any alcohol or drug abuse patient.[facility] Center[facility] the event this information is protected by the Federal Confidentiality of Alcohol and Drug Abuse Patient Records regulations: The Federal rules restrict any use of the information to criminally investigate or prosecute any alcohol or drug abuse patient.[facility] the event this information is protected by the Federal Confidentiality of Alcohol and Drug Abuse Patient Records regulations: The Federal rules restrict any use of the information to criminally investigate or prosecute any alcohol or drug abuse patient.[facility] Reason for Visit (unrecogniz ed section and content) Reason Comments Results Reason Comments Hypertension 6 month follow up Establish Care former Dr. David peterson Reason Comments Refill Request Reason Onset Date Comments Refill Request 08/06/2023 Care Teams (unrecognized sec tion and content) Armhole F[employer] Handstitching Machine Relationship Specialty Start Date End Date Nel Alvarez DO [address], [place] [id number] PCP - General Family Practice 08/18/21 [employer] Handstitching Machine Relationship Specialty Start Date End Date Nel Alvarez DO [address] [place] [address] PCP - General Family Practice 08/18/21 [employer] Handstitching Machine Relationship Specialty Start Date End Date Sheets, Nel Angelo DO [address] [place] [address] PCP - General Family Practice 08/18/21 [employer]hole [employer] Handstitching Machine Relationship Specialty Start Date End Date SheetsSindhuNel C DO [address] [place] [address] PCP - General Family Medicine 08/18/21 [employer]hole [employer] Handstitching Machine Relationship Specialty Start Date End Date SheetsSindhuNel Angelo [address] [place], [place] [id number] PCP - General Family Medicine 08/18/21 Armhole [employer] Handstitching Machine Relationship Specialty Start Date End Date Sheets, Nel Stephens [address] [place], [place] [id number] PCP - General Family Medicine 08/18/21 Armhole [employer] Handstitching Machine Relationship Specialty Start Date End Date Sheets, Nel Stephens DO [address] [place], [place] [id number] PCP - General Family Medicine 08/18/21 Team Status: Active Member Role Status Dates Susana COPELAND CARD BOXER-C Primary Care Provider Activ e Team Status: Inactive Member Role Status Dates Susana COPELAND CARD BOXER-C Primary Care Provider, Attending Provider, Referring Provider Active Team Status: Inactive Member Role Status Dates Susana COPELAND, CARD BOXER-C Primary Care Provider Activ e Start: November 18, 2024 End: November 18, 2024 Susana COPELAND, CARD BOXER-C Attending Provider Active Start: November 18, 2024 End: November 18, 2024 Team Status: Active Member Role/Relationship Status Dates Susana COPELAND, CARD BOXER-C Primary Care Provider Activ e Team Status: Inactive Member Role/Relationship Status Dates Susana COPELAND, CARD BOXER-C Primary Care Provider Activ e Start: November 18, 2024 End: November 18, 2024 Susana Bharathi VSC, CARD BOXER-C Attending Provider Active Start: November 18, 2024 End: November 18, 2024 Team Status: Active Member Role/Relationship Status Dates Susana THOMPSONAngelo, CARD BOXER-C Primary Care Provider Activ e Start: December 12, 2024 Dee Hart Attending Provider Active Start: 2024 Team Status: Inactive Member Role/Relationship Status Dates Susana THOMPSONC, CARD BOXER-C Primary Care Provider Activ e Start: January 09, 2025 End: January 09, 2025 Susana Garvin DINORAH, CARD BOXER-C Referring Provider Active Start: January 09, 2025 End: January 09, 2025 Dr. Alex Delarosa MD Attending Provider Active Start: January 09, 2025 End: January 09, 2025 Team Status: Active Member Role/Relationship Status Dates Susana THOMPSONAngelo, CARD BOXER-C Primary Care Provider Activ e Start: January 09, 2025 Susana Garvin DINORAH, CARD BOXER-C Referring Provider Active Start: January 09, 2025 Dr. Alex Delarosa MD Attending Provider Active Start: January 09, 2025 Dr. Alex Delarosa MD Other Provider Active Start: January 09, 2025 (unrecognized sect ion and content) No Status Records FoundNo Status Records FoundNo Status Records Found INFORMATION SOURCE (unrecogn ized section and content) DATE CREATED AUTHOR 10/14/2021 [facility] DATE CREATED AUTHOR AUTHOR'S ORGANIZ ATION 11/01/2021 [facility] DATE CREATED AUTHOR AUTHOR'S ORGANIZ ATION 02/01/2025 [facility] Goals (unrecognized section and content) Goals may [...] BE BASED ON THE PRIMARY CLINICAL RECORDS. [facility]. provides no warranty or guarantee of the accuracy or completeness of information in this document.
== END | disposition home or self-care (01) ==
LOC: SL 10:44
PROVIDERS: PCP Nurse Practitioner Family
DX: G47.10 Hypersomnia, unspecified (principal)
CPT/HCPCS: 95806

== ENCOUNTER → 2025-05-20 | Outpatient (CLI) | payer MEDICARE, SELFPAY ==
--- OUTSIDE RECORDS SUMMARY | 2025-05-20 10:07 | XMS RPT_ITS | CCD ---
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 Johnson Attending Provider Isaura CUADRA, Dr. Johnson Other Provider Dr. Luan Ayoub MD Attending Provider Isaura CUADRA, Dr. Johnson Referring Provider [phone] Beam MAGAZINE HAND-C, Zebualex Attending Provider Beam, Breezy Referring Provider Unavailable Alex Delarosa Attending Unavailable Bharathi VSC, Susana Referring Unavailabl e Bharathi VS, Susana Primary Care Unavailabl e Bharathi VS, Susana Primary Care Unavailabl e Bharathi VSC, Susana Attending Unavailabl e Beam VSC Zesandie Attending Unavailable Bharathi VS, Susana Primary Care Unavailabl e Beam, [place] Referring Unavailable Bharathi VSC, Susana Primary Care Unavailabl e Bharathi VSC, Susana Attending Unavailabl e Bharathi VSC, Susana Primary Care Unavailabl Dee Borrero Attending Unavailable Luan Ayoub Attending Unavailable Alex Delarosa Referring Unavailable Bharathi VSC, Susana Primary Care UnavailAlex Brown Consulting Unavailable Alex Delarosa Attending Unavailable Bharathi VSC, Susana Referring Unavailabl e Bharathi VSC, Susana Primary Care Unavailabl e Allergies Allergy Classification Reported Allergen(s) Allergy Type Date of Onset Reaction(s) Facility (8 sources) Penicillin Drug Allergy 2 Other: See Comments [facility] (2 sources) Penicillins Allergy to substance 5 Other [facility] (1 source) Penicillins Drug allergy (disorder) 5 [facility] Repository Medications Current Medications Medication Drug Class(es) Dates Sig (Normalized) Sig (Original) aspirin 81 mg oral tablet (2 sources) Platelet Aggregation Inhibitor, Nonsteroidal Anti-inflammatory Drug Start: 12-12-2024 take 1 tablet by mouth once daily Aspirin 81 mg tablet Active 81 mg PO daily December 12, 2024 12:00am atorvastatin 10 mg oral tablet (17 sources) HMG-CoA Reductase Inhibitor Start: 12-12-2024 take [...] ONCE DAILY lisinopril 20 mg oral tablet (19 sources) Angiotensin Converting Enzyme Inhibitor Start: 12-12-2024 [...] daily. metFORMIN hydrochloride 1000 mg oral tablet (2 sources) Biguanide Start: 12-12-2024 take 1 tablet by mouth twice daily Metformin 1,000 mg tablet Active 1000 mg PO TWICE A DAY December 12, 2024 12:00am Completed/Discontinued Medications Medication Drug Class(es) Dates Sig (Normalized) Sig (Original) 0.5 ml dulaglutide 1.5 mg/ml auto-injector (2 sources) GLP-1 Receptor Agonist Start: 12-12-2024 End: 01-08-2025 [...] on above: Take 1 capsule by mo ut daily at bedtime. Problems Problem Classification Problem [...] conditions (not mental disorders or infectious disease) (6 sources) Patient encounter status; Translations: [Encounter for screening for malignant neoplasm of colon] Onset: 01-30-2025 01-09-2025 Episodic Residual codes; unclassified (1 source) Hypersomnia, unspecified; Translations: [Hypersomnia, unspecified] Onset: 02-11-2025 Chronic Results Test Name Value Interpretation Reference Range Facility 12 Lead EKGon 01-09-2025 12 Lead EKG [facility] Cardiovascular Services [address] [place] [address] 12 Lead EKG 01/09/25 0653 MR#: [id number] Acct: [id number] Name: GARRETT CACERES Rep #: [id number] : 1960 64 From: Luan Ayoub MD Attending Dr: Dr. Alex Delarosa MD Status: [facility] Ordering Dr: Lucas Mcwilliams MD Date: 01/09/25 [...] ECGs available Confirmed by Luan Ayoub ([id number]), photo editor JAYDE VIGIL ([id number]) on 01/14/2025 11:38:02 AM Referred By: Susana Garvin Confirmed By: Luan Ayoub 01/14/25 1138 Date Luan Ayoub MD CC: DINORAH MAGAZINE HAND-C Susana Garvin; Dr. Alex Delarosa MD; Dr. Lucas Mcwilliams MD Signed Normal [facility] Colonoscopy Reporton 025 Colonoscopy Report [facility] Medical Records Department [address] [place] [address] Colonoscopy Report MR#: [id number] Acct: [id number] Name: GARRETT CACERES Rep #: [id number] : 1960 64 From: Alex Delarosa MD PCP: DINORAH Fall, MAGAZINE HAND-C Status:[facility] Patient Name: Garrett Caceres Procedure Date: 01/09/2025 7:17 AM Date of : 1960 Age: 64 Procedure: Colonoscopy Indications: Screening for colorectal malignant neoplasm Providers: Alex Delarosa MD Referring MD: Susana Copeland, Dietary Service Aide-c Medicines: Propofol per Anesthesia Patient Profile: This [...] screening purposes. Procedure Code(s): --- Professional --- 90868, Colonoscopy, flexible; diagnostic, including collection of specimen(s) by brushing or washing, when performed (separate procedure) Diagnosis Code(s): --- Professional --- Z12.11, Encounter for screening for malignant neoplasm of colon CPT copyright 2021 [employer]. All rights reserved. The codes documented in this report are preliminary and upon air hose coupler review may be revised to meet current compliance requirements. Alex Delarosa MD 01/09/2025 7:51:56 AM This report has been signed electronically. Number of Addenda: 0 Note Initiated On: 01/09/2025 7:17 AM 01/09/25 0752 Date Alex Paulino Signature: Date (if indicated) CC: DINORAH MAGAZINE HAND-C Susana Garvin; Dr. Alex Delarosa MD Date Dictated: 01/09/25716 Date Transcribed: Process Improvement Analyst: Signed [facility] MR/POSTOP.ANEon 01-09-2025 MR/POSTOP.[facility] Medical Records Department [address] [place] [address] Anesthesia Postop Eval I 01/09/25 075 MR#: [id number] Acct: [id number] Name: GARRETT CACERES Rep #: [id number] : 1960 64 From: Dallin Carrera PCP: DINORAH Fall, MAGAZINE HAND-C Status:REG [facility] Y Race: C Location: [facility]05-02 Anesthesia: Postop Eval I Current Vital Signs [...] document: Postop Eval 1 completed: Yes 01/09/25 08 Date Dallin Paulino Signature: Date CC: Signed [facility] MR/[id number] 01-09-2025 MR/POSTOPAN2 [facility] Medical Records Department [address] [place] [address] Anesthesia Postop Eval II 01/09/25 1143 MR#: [id number] Acct: [id number] Name: GARRETT CACERES Rep #: [id number] : 1960 64 From: Lucas Mcwilliams MD PCP: DINORAH Fall, MAGAZINE HAND-C Status:DEP [facility] Y Race: C Location: EN Anesthesia Postop [...] No 01/09/25 1143 Date Lucas Mcwilliams MD Cosigner Signature: Date CC: Signed Normal [facility] Absolute lymphocyte countOrd ered By: DINORAH Garvin on 11-18-2024 Lymphocytes Auto (Unsp spec) [#/Vol] 2.03 10*3/uL 0.83-4.51 [facility] Absolute neutrophil countOrd ered By: VSC Susana Garvin on 11-18-2024 Neutrophils (Bld) [#/Vol] 2.8 10*3/uL 2.0-7.7 [facility] Anion gap in Serum or Plasma Ordered By: [facility] Susana Garvin on 11-18-2024 Anion gap [Moles/Vol] 11 mmol/L - [facility] Automated lymphocyte count a s percentage of total leukocytesOrdered By: [facility] Susana Bharathi on 11-18-2024 Lymphocytes/100 WBC Auto (Unsp spec) 37.5 % [facility] BUN/creatinine ratioOrdered By: [facility] Bharathi on 11-18-2024 Urea nitrogen/Creatinine [Mass ratio] 24.4 mg/mg High 04-20 [facility] Basophil percentageOrdered B y: [facility] Susana Bharathi on 11-18-2024 Basophils/100 WBC (Bld) 0.6 % 0-[address] [facility] Bilirubin, totalOrdered By: [facility] Susana Bharathi on 11-18-2024 Bilirubin [Mass/Vol] 0.30 mg/dL 0.00-1.[address] [facility] CBC W/Diff, Automatedon 10-31 Absolute Lymph 2.03 X10 3/uL Normal 0.83-4.51 [facility] Comment on above: Performed By: #### L 500.4050, L501.9910, L500.4100, L100.0100, L502.0500 #### [facility] [address] [place], [address] Absolute Neut 2.8 X10 3/uL Normal 2.0-7.7 [facility] Comment on above: Performed By: #### L 500.4050, L501.9910, L500.4100, L100.0100, L502.0500 #### [facility] [address] [place], [address] Basophils/100 WBC (Bld) 0.6 % Normal 0-[address] [facility] Comment on above: Performed By: #### L 500.4050, L501.9910, L500.4100, L100.0100, L502.0500 #### [facility] [address], [address] Eosinophils/100 WBC (Bld) 2.2 % Normal 0-5 [facility] Comment on above: Performed By: #### L 500.4050, L501.9910, L500.4100, L100.0100, L502.0500 #### [facility] [address] [place], [address] Erythrocyte distribution width (RBC) [Ratio] 11.8 % Normal 11.6-14.6 [facility] Comment on above: Performed By: #### L 500.4050, L501.9910, L500.4100, L100.0100, L502.0500 #### [facility] [address] [place], [address] Hematocrit (Bld) [Volume fraction] 42.5 % Normal 40-54 [facility] Comment on above: Performed By: #### L 500.4050, L501.9910, L500.4100, L100.0100, L502.0500 #### [facility] [address] [place], [address] Hemoglobin (Bld) [Mass/Vol] 14.6 g/dL Normal 13.0-16.5 [facility] Comment on above: Performed By: #### L 500.4050, L501.9910, L500.4100, L100.0100, L502.0500 #### [facility] [address] [place], [address] IG% 0.400 Normal 0.0-0.9 [facility] Comment on above: Result Comment: IG% - Immature Granulocytes (promyelocytes, myelocytes and metamyelocytes) > 1% indicates that a LEFT SHIFT is Present. Performed By: #### L 500.4050, L501.9910, L500.4100, L100.0100, L502.0500 #### [facility] [address] [place], [address] Lymphocytes/100 WBC (Bld) 37.5 % Normal 19-41 [facility] Comment on above: Performed By: #### L 500.4050, L501.9910, L500.4100, L100.0100, L502.0500 #### [facility] [address] [place], [address] MCH (RBC) [Entitic mass] 30.7 pg Normal 27.0-32.0 [facility] Comment on above: Performed By: #### L 500.4050, L501.9910, L500.4100, L100.0100, L502.0500 #### [facility] [address] [place], [address] MCHC (RBC) [Mass/Vol] 34.4 g/dL Normal 32-36 [facility] Comment on above: Performed By: #### L 500.4050, L501.9910, L500.4100, L100.0100, L502.0500 #### [facility] [address] [place], [address] MCV (RBC) [Entitic vol] 89.3 fL Normal 80-94 [facility] Comment on above: Performed By: #### L 500.4050, L501.9910, L500.4100, L100.0100, L502.0500 #### [facility] [address] [place], [address] Monocytes/100 WBC (Bld) 7.8 % Normal 0-[address] [facility] Comment on above: Performed By: #### L 500.4050, L501.9910, L500.4100, L100.0100, L502.0500 #### [facility] [address] [place], [address] Neutrophils/100 WBC (Bld) 51.5 % Normal 47-70 [facility] Comment on above: Performed By: #### L 500.4050, L501.9910, L500.4100, L100.0100, L502.0500 #### [facility] [address] [place], [address] Nucleated RBC (Bld) [#/Vol] 0 10*3/uL Normal 0-5 [facility] Comment on above: Performed By: #### L 500.4050, L501.9910, L500.4100, L100.0100, L502.0500 #### [facility] [address] [place], [address] Platelet mean volume (Bld) [Entitic vol] 10.1 fL Normal 6.2-12.0 [facility] Comment on above: Performed By: #### L 500.4050, L501.9910, L500.4100, L100.0100, L502.0500 #### [facility] [address] [place], [address] Platelets (Bld) [#/Vol] 235 10*3/uL Normal 150-450 [facility] Comment on above: Performed By: #### L 500.4050, L501.9910, L500.4100, L100.0100, L502.0500 #### [facility] [address] [place], [address] RBC (Bld) [#/Vol] 4.76 10*6/uL Normal 4.6-6.2 [facility] Comment on above: Performed By: #### L 500.4050, L501.9910, L500.4100, L100.0100, L502.0500 #### [facility] [address] [place], [address] RDW SD 38.0 fl Normal 35.1-43.9 [facility] Comment on above: Performed By: #### L 500.4050, L501.9910, L500.4100, L100.0100, L502.0500 #### [facility] [address] [place], [place], [address] WBC (Bld) [#/Vol] 5.4 10*3/uL Normal 4.4-11.0 [facility] Comment on above: Performed By: #### L 500.4050, L501.9910, L500.4100, L100.0100, L502.0500 #### [facility] [address] [place], [address] Calculated very low density lipoprotein (VLDL) cholesterol measurementOrdered By: [facility] Susana Garivn on 11-18-2024 Calculated very low density lipoprotein (VLDL) cholesterol measurement 33 mg/dL 5-40 [facility] Carbon dioxide, total [Moles /volume] in Central venous bloodOrdered By: [facility] Susana Garvin on 11-18-2024 CO2 [Moles/Vol] 20.9 mmol/L Low 21.0-32.0 [facility] Chloride assayOrdered By: [facility] Susana Garvin on 11-18-2024 Chloride [Moles/Vol] 106 mmol/L 98-[address] [facility] Comprehensive Metabolic Prof ilon 11-18-2024 Albumin [Mass/Vol] 4.2 g/dL Normal 3.4-4.8 [facility] Comment on above: Performed By: #### L 500.4050, L501.9910, L500.4100, L100.0100, L502.0500 #### [facility] [address] [place], [place], [address] Albumin/Globulin [Mass ratio] 1.3 {ratio} Normal 0.9-2.4 [facility] Comment on above: Performed By: #### L 500.4050, L501.9910, L500.4100, L100.0100, L502.0500 #### [facility] [address] [place], [address] ALK PHOS 118 U/L Normal 40-129 [facility] Comment on above: Performed By: #### L 500.4050, L501.9910, L500.4100, L100.0100, L502.0500 #### [facility] [address] [place], [address] ALT [Catalytic activity/Vol] 19 U/L Normal <=46 [facility] Comment on above: Performed By: #### L 500.4050, L501.9910, L500.4100, L100.0100, L502.0500 #### [facility] [address] [place], [address] AST [Catalytic activity/Vol] 32 U/L Normal <=37 [facility] Comment on above: Performed By: #### L 500.4050, L501.9910, L500.4100, L100.0100, L502.0500 #### [facility] [address] [place], [address] Bilirubin [Mass/Vol] 0.30 mg/dL Normal 0.00-1.[address] [facility] Comment on above: Performed By: #### L 500.4050, L501.9910, L500.4100, L100.0100, L502.0500 #### [facility] [address] [place], [address] BUN/CRE 24.4 RATIO High 10-20 [facility] Comment on above: Performed By: #### L 500.4050, L501.9910, L500.4100, L100.0100, L502.0500 #### [facility] [address] [place], [address] Calcium [Mass/Vol] 9.3 mg/dL Normal 7.6-11.0 [facility] Comment on above: Performed By: #### L 500.4050, L501.9910, L500.4100, L100.0100, L502.0500 #### [facility] [address] [place], [address] Chloride [Moles/Vol] 106 mmol/L Normal 98-[address] [facility] Comment on above: Performed By: #### L 500.4050, L501.9910, L500.4100, L100.0100, L502.0500 #### [facility] [address] [place], [address] CO2 [Moles/Vol] 20.9 mmol/L Low 21.0-32.0 [facility] Comment on above: Performed By: #### L 500.4050, L501.9910, L500.4100, L100.0100, L502.0500 #### [facility] [address] [place], [address] Creatinine [Mass/Vol] 0.78 mg/dL Normal 0.70-1.20 [facility] Comment on above: Performed By: #### L 500.4050, L501.9910, L500.4100, L100.0100, L502.0500 #### [facility] [address] [place], [address] GAP 11 Normal 5-15 [facility] Comment on above: Performed By: #### L 500.4050, L501.9910, L500.4100, L100.0100, L502.0500 #### [facility] [address] [place], [address] GFR/1.73 sq M.predicted among non-blacks MDRD (S/P/Bld) [Vol rate/Area] 99 mL/min/{1.73_m2} Normal >60 [facility] Comment on above: Result Comment: mL/m in/1.73m2 CKD-EPI Creatinine Equation (2020) Performed By: #### L 500.4050, L501.9910, L500.4100, L100.0100, L502.0500 #### [facility] [address] [place], [address] Globulin (S) [Mass/Vol] 3.2 g/dL Normal 2.2-4.2 [facility] Comment on above: Performed By: #### L 500.4050, L501.9910, L500.4100, L100.0100, L502.0500 #### [facility] [address] [place], [address] Glucose [Mass/Vol] 152 mg/dL High 70-99 [facility] Comment on above: Performed By: #### L 500.4050, L501.9910, L500.4100, L100.0100, L502.0500 #### [facility] [address] [place], [address] Potassium [Moles/Vol] 4.5 mmol/L Normal 3.3-5.1 [facility] Comment on above: Performed By: #### L 500.4050, L501.9910, L500.4100, L100.0100, L502.0500 #### [facility] [address] [place], [address] Sodium [Moles/Vol] 138 mmol/L Normal 133-145 [facility] Comment on above: Performed By: #### L 500.4050, L501.9910, L500.4100, L100.0100, L502.0500 #### [facility] [address] [place], [address] T PROT 7.4 g/dL Normal 5.9-8.4 [facility] Comment on above: Performed By: #### L 500.4050, L501.9910, L500.4100, L100.0100, L502.0500 #### [facility] [address] [place], [place], [address] Urea nitrogen [Mass/Vol] 19 mg/dL Normal 4-19 [facility] Comment on above: Performed By: #### L 500.4050, L501.9910, L500.4100, L100.0100, L502.0500 #### [facility] [address] [place], [place], [address] Eosinophil percentageOrdered By: [facility] Susana Garvin on 11-18-2024 Eosinophils/100 WBC (Bld) 2.2 % 0-5 [facility] Erythrocyte distribution wid th ratioOrdered By: [facility] Susana Garvin on 11-18-2024 Erythrocyte distribution width (RBC) [Ratio] 11.8 % 11.6-14.6 [facility] Erythrocyte distribution wid th standard deviationOrdered By: [facility] Susana Garvin on 11-18-2024 Erythrocyte distribution width (RBC) [Ratio] 38.0 fl 35.1-43.9 [facility] Glomerular filtration rate ( GFR) estimation/1.73 sq m using serum, plasma, or whole bOrdered By: [facility] Susana Garvin on 11-18-2024 GFR/1.73 sq M.predicted among non-blacks MDRD (S/P/Bld) [Vol rate/Area] 99 mL/min/{1.73_m2} >60 [facility] Comment on above: mL/min/1.73m2 CKD-EP I Creatinine Equation (2020) Hematocrit Auto (Bld) [Volum e fraction]Ordered By: [facility] Susana Garvin on 11-18-2024 Hematocrit (Bld) [Volume fraction] 42.5 % 40-54 [facility] Hemoglobin measurementOrdere d By: [facility] Susana Garvin on 11-18-2024 Hemoglobin (Bld) [Mass/Vol] 14.6 g/dL 13.0-16.5 [facility] Immature granulocytes/100 WB C Auto (Bld)Ordered By: [facility] Susana Garvin on 11-18-2024 Immature granulocytes/100 WBC (Bld) 0.400 % 0.0-0.9 [facility] Comment on above: IG% - Immature Granu locytes (promyelocytes, myelocytes and metamyelocytes) > 1% indicates that a LEFT SHIFT is Present. LDL calc ser/plasOrdered By: [facility] Susana Garvin on 11-18-2024 Cholesterol in LDL [Mass/Vol] 101 mg/dL [facility] Comment on above: Rtnihumiil=047-157 m g/dL & Higher Jlsb=770 mg/dL or greater Laboratory - Chemistry and C hemistry - challengeOrdered By: [facility] Susanagrant Garvin on 11-18-2024 AST [Catalytic activity/Vol] 32 U/L <38 [facility] Lipid Profileon 11-18-2024 CHOL:HDL 4.79 Normal [facility] Comment on above: Performed By: #### L 500.4050, L501.9910, L500.4100, L100.0100, L502.0500 #### [facility] [address] [place], [address] Cholesterol [Mass/Vol] 169 mg/dL Normal <=200 [facility] Comment on above: Result Comment: Chol esterol level, Desirable <200 mg/dL Borderline high cholesterol 200-239 mg/dL High cholesterol >=240 mg/dL Recommendations of the NCEP Adult Treatment Panel for the following risk-cutoff thresholds for the [place] population. Performed By: #### L 500.4050, L501.9910, L500.4100, L100.0100, L502.0500 #### [facility] [address] [place], [address] Cholesterol in HDL [Mass/Vol] 35 mg/dL Low [facility] Comment on above: Result Comment: Jasmyne onal Cholesterol Education Program (NCEP) guidelines: <40 mg/dL: Low HDL-cholesterol (major risk factor for CHD) >= 60 mg/dL: High HDL-cholesterol (negative risk factor for CHD) HDL-cholesterol is affected by a number of factors, e.g. smoking, exercise, hormones, sex and age. Performed By: #### L 500.4050, L501.9910, L500.4100, L100.0100, L502.0500 #### [facility] [address] [place], [address] Cholesterol in LDL [Mass/Vol] 101 mg/dL Normal [facility] Comment on above: Result Comment: Bord yjeuui=779-338 mg/dL Higher Zuqv=283 mg/dL or greater Performed By: #### L 500.4050, L501.9910, L500.4100, L100.0100, L502.0500 #### [facility] [address] [place], [address] Cholesterol in VLDL [Mass/Vol] 33 mg/dL Normal 5-40 [facility] Comment on above: Performed By: #### L 500.4050, L501.9910, L500.4100, L100.0100, L502.0500 #### [facility] [address] [place], [address] Triglyceride [Mass/Vol] 166 mg/dL Normal [facility] Comment on above: Result Comment: The drugs N-Acetylcysteine and Metamizole may falsely depress this assay. Normal range: <150 mg/dL Borderline High: 150-199 mg/dL High: 200-499 mg/dL Very High: >500 mg/dL Performed By: #### L 500.4050, L501.9910, L500.4100, L100.0100, L502.0500 #### [facility] [address] [place], [address] MCV (mean corpuscular volume ) determinationOrdered By: [facility] Susana Garvin on 11-18-2024 MCV (RBC) [Entitic vol] 89.3 fL 80-[address] [facility] Mean corpuscular hemoglobin (MCH) determinationOrdered By: [facility] Susana Garvin on 11-18-2024 MCH (RBC) [Entitic mass] 30.7 pg 27.0-32.0 [facility] Mean corpuscular hemoglobin concentration (MCHC) determinationOrdered By: [facility] Susana Garvin on 11-18-2024 MCHC (RBC) [Mass/Vol] 34.4 g/dL 32-36 [facility] Mean platelet volume determi nationOrdered By: [facility] Susana Garvin on 11-18-2024 Platelet mean volume (Bld) [Entitic vol] 10.1 fL 6.2-12.0 [facility] Microalbumin,Random Urineon 11-18-2024 MICROALBUMIN,UR 15.7 mg/L Normal NO RANGE EST. [facility] Comment on above: Performed By: #### L 500.4050, L501.9910, L500.4100, L100.0100, L502.0500 #### [facility] [address] [place], [place], [id number] Monocyte percentageOrdered B y: [facility] Susanagrant Garvin on 11-18-2024 Monocytes/100 WBC (Bld) 7.8 % 0-10 [facility] Neutrophil percentageOrdered By: [facility] Bharathi on 11-18-2024 Neutrophils/100 WBC (Bld) 51.5 % 47-70 [facility] Nucleated red blood cell per centageOrdered By: [facility] 11-18-2024 Nucleated RBC/100 WBC (Bld) [Ratio] 0 % 0-5 [facility] PSA,Total - Annual Screenon 11-18-2024 PSA,TOT SCREEN 1.28 ng/mL Normal 0.02-4.00 [facility] Comment on above: Result Comment: This [...] L 500.4050, L501.9910, L500.4100, L100.0100, L502.0500 #### [facility] [address] [place], [address] Platelet countOrdered By: [facility] Susana Garvin on 11-18-2024 Platelets (Bld) [#/Vol] 235 10*3/uL 150-450 [facility] Potassium measurement (mass/ volume)Ordered By: [facility] Susana Garvin on 11-18-2024 Potassium (Unsp spec) [Mass/Vol] 4.5 mmol/L 3.3-5.1 [facility] RBC Auto (Bld) [#/Vol]Ordere d By: [facility] Susana Garvin on 11-18-2024 RBC (Bld) [#/Vol] 4.76 10*6/uL 4.6-6.2 [facility] Screening total cholesterol/ high density lipoprotein (HDL) cholesterol ratioOrdered By: [facility] Susana Garvin on 11-18-2024 Cholesterol.total/Choles terol in HDL [Mass ratio] 4.79 {ratio} [facility] Serum creatinine measurement (mass/volume)Ordered By: [facility] Susana Garvin on 11-18-2024 Creatinine [Mass/Vol] 0.78 mg/dL 0.70-1.20 [facility] Serum globulin measurementOr dered By: [facility] Susana Garvin on 11-18-2024 Globulin (S) [Mass/Vol] 3.2 g/dL 2.2-4.[address] [facility] Serum glucose measurement (m ass/volume)Ordered By: [facility] Susana Garvin on 11-18-2024 Glucose [Mass/Vol] 152 mg/dL High 70-99 [facility] Serum or plasma alanine schneider otransferase (ALT) measurementOrdered By: [facility] Susana Garvin on 11-18-2024 ALT [Catalytic activity/Vol] 19 U/L <47 [facility] Serum or plasma albumin ruthie urement (mass/volume)Ordered By: [facility] Susana Garvin on 11-18-2024 Albumin [Mass/Vol] 4.2 g/dL 3.4-4.8 [facility] Serum or plasma albumin/glob ulin mass ratioOrdered By: [facility] Susana Garvin on 11-18-2024 Albumin/Globulin [Mass ratio] 1.3 {ratio} 0.9-2.4 [facility] Serum or plasma alkaline britni sphatase measurementOrdered By: [facility] Susana Garvin on 11-18-2024 ALP [Catalytic activity/Vol] 118 U/L 40-129 [facility] Serum or plasma calcium ruthie urement (mass/volume)Ordered By: [facility] Susana Garvin on 11-18-2024 Calcium [Mass/Vol] 9.3 mg/dL 7.6-11.0 [facility] Serum or plasma cholesterol in HDL measurement (mass/volume)Ordered By: [facility] Susana Garvin on 11-18-2024 Cholesterol in HDL [Mass/Vol] 35 mg/dL Low >40 [facility] Comment on above: National Cholesterol Education Program (NCEP) guidelines:<40 mg/dL: Low HDL-cholesterol (major risk factor for CHD)>= 60 mg/dL: High HDL-cholesterol (negative risk factor for CHD)HDL-cholesterol is affected by a number of factors, e.g. smoking, exercise, hormones, sex and age. Serum or plasma cholesterol measurement (mass/volume)Ordered By: [facility] Susana Garvin on 11-18-2024 Cholesterol [Mass/Vol] 169 mg/dL <201 [facility] Comment on above: Cholesterol level, D esirable <200 mg/dLBorderline high cholesterol 200-239 mg/dLHigh cholesterol >=240 mg/dLRecommendations of the NCEP Adult Treatment Panel for the following risk-cutoff thresholds for the [place] population. Serum or plasma urea nitroge n measurement (mass/volume)Ordered By: [facility] Susana Garvin on 11-18-2024 Urea nitrogen [Mass/Vol] 19 mg/dL 4-19 [facility] Sodium levelOrdered By: [facility] Susana Garvin on 11-18-2024 Sodium [Moles/Vol] 138 mmol/L 133-145 [facility] Total proteinOrdered By: [facility] Susana Garvin on 11-18-2024 Protein [Mass/Vol] 7.4 g/dL 5.9-8.4 [facility] Triglycerides measurementOrd ered By: [facility] Susana Garvin on 11-18-2024 Triglyceride [Mass/Vol] 166 mg/dL <[address] [facility] Comment on above: The drugs N-Acetylcy steine and Metamizole may falsely depress this assay. Normal range: <150 mg/dLBorderline High: 150-199 mg/dLHigh: 200-499 mg/dLVery High: >500 mg/dL Urine albumin measurement [facility] detection limit of 20 mg/L or less (mass/volume)Ordered By: [facility] Susana Garvin on 11-18-2024 Albumin DL <= 20 mg/L (U) [Mass/Vol] 15.7 mg/L NO RANGE EST. [facility] White blood cell (WBC) count Ordered By: [facility] Susana Garvin on 11-18-2024 WBC (Bld) [#/Vol] 5.4 10*3/uL 4.4-11.0 [facility] CBC W/Diff, Automatedon 01-31 Absolute Lymph 2.21 X10 3/uL Normal 0.83-4.51 [facility] Comment on above: Performed By: #### L 502.0500, L500.4100, L500.4050, L501.9520, L100.0100 #### [facility] [address] [place], [address] Absolute Neut 3.6 X10 3/uL Normal 2.0-7.7 [facility] Comment on above: Performed By: #### L 502.0500, L500.4100, L500.4050, L501.9520, L100.0100 #### [facility] [address] [place], [address] Basophils/100 WBC (Bld) 0.9 % Normal 0-[address] [facility] Comment on above: Performed By: #### L 502.0500, L500.4100, L500.4050, L501.9520, L100.0100 #### [facility] [address] [place], [address] Eosinophils/100 WBC (Bld) 3.6 % Normal 0-5 [facility] Comment on above: Performed By: #### L 502.0500, L500.4100, L500.4050, L501.9520, L100.0100 #### [facility] [address] [place], [address] Erythrocyte distribution width (RBC) [Ratio] 11.9 % Normal 11.6-14.6 [facility] Comment on above: Performed By: #### L 502.0500, L500.4100, L500.4050, L501.9520, L100.0100 #### [facility] [address] [place], [address] Hematocrit (Bld) [Volume fraction] 42.2 % Normal 40-54 [facility] Comment on above: Performed By: #### L 502.0500, L500.4100, L500.4050, L501.9520, L100.0100 #### [facility] [address] [place], [address] Hemoglobin (Bld) [Mass/Vol] 14.5 g/dL Normal 13.0-16.5 [facility] Comment on above: Performed By: #### L 502.0500, L500.4100, L500.4050, L501.9520, L100.0100 #### [facility] [address] [place], [address] IG% 0.300 Normal 0.0-0.9 [facility] Comment on above: Result Comment: IG% - Immature Granulocytes (promyelocytes, myelocytes and metamyelocytes) > 1% indicates that a LEFT SHIFT is Present. Performed By: #### L 502.0500, L500.4100, L500.4050, L501.9520, L100.0100 #### [facility] [address] [place], [address] Lymphocytes/100 WBC (Bld) 33.6 % Normal 19-41 [facility] Comment on above: Performed By: #### L 502.0500, L500.4100, L500.4050, L501.9520, L100.0100 #### [facility] [address] [place], [address] MCH (RBC) [Entitic mass] 30.4 pg Normal 27.0-32.0 [facility] Comment on above: Performed By: #### L 502.0500, L500.4100, L500.4050, L501.9520, L100.0100 #### [facility] [address] [place], [address] MCHC (RBC) [Mass/Vol] 34.4 g/dL Normal 32-36 [facility] Comment on above: Performed By: #### L 502.0500, L500.4100, L500.4050, L501.9520, L100.0100 #### [facility] [address] [place], [address] MCV (RBC) [Entitic vol] 88.5 fL Normal 80-[address] [facility] Comment on above: Performed By: #### L 502.0500, L500.4100, L500.4050, L501.9520, L100.0100 #### [facility] [address] [place], [address] Monocytes/100 WBC (Bld) 7.3 % Normal 0-[address] [facility] Comment on above: Performed By: #### L 502.0500, L500.4100, L500.4050, L501.9520, L100.0100 #### [facility] [address] [place], [address] Neutrophils/100 WBC (Bld) 54.3 % Normal 47-70 [facility] Comment on above: Performed By: #### L 502.0500, L500.4100, L500.4050, L501.9520, L100.0100 #### [facility] [address] [place], [address] Nucleated RBC (Bld) [#/Vol] 0 10*3/uL Normal 0-5 [facility] Comment on above: Performed By: #### L 502.0500, L500.4100, L500.4050, L501.9520, L100.0100 #### [facility] [address] [place], [address] Platelet mean volume (Bld) [Entitic vol] 10.5 fL Normal 6.2-12.0 [facility] Comment on above: Performed By: #### L 502.0500, L500.4100, L500.4050, L501.9520, L100.0100 #### [facility] [address] [place], [address] Platelets (Bld) [#/Vol] 251 10*3/uL Normal 150-450 [facility] Comment on above: Performed By: #### L 502.0500, L500.4100, L500.4050, L501.9520, L100.0100 #### [facility] [address] [place], [address] RBC (Bld) [#/Vol] 4.77 10*6/uL Normal 4.6-6.2 [facility] Comment on above: Performed By: #### L 502.0500, L500.4100, L500.4050, L501.9520, L100.0100 #### [facility] [address] [place], [address] RDW SD 38.7 fl Normal 35.1-43.9 [facility] Comment on above: Performed By: #### L 502.0500, L500.4100, L500.4050, L501.9520, L100.0100 #### [facility] [address] [place], [address] WBC (Bld) [#/Vol] 6.6 10*3/uL Normal 4.4-11.0 [facility] Comment on above: Performed By: #### L 502.0500, L500.4100, L500.4050, L501.9520, L100.0100 #### [facility] [address] [place], [address] Comprehensive Metabolic [facility] ilon 02-26-2024 Albumin [Mass/Vol] 3.5 g/dL Normal 3.2-5.0 [facility] Comment on above: Performed By: #### L 502.0500, L500.4100, L500.4050, L501.9520, L100.0100 ####[facility] [address] [place], [address] Albumin/Globulin [Mass ratio] 0.9 {ratio} Normal 0.9-2.4 [facility] Comment on above: Performed By: #### L 502.0500, L500.4100, L500.4050, L501.9520, L100.0100 ####[facility] [address] [place], [address] ALK P 118 U/L High 45-117 [facility] Comment on above: Performed By: #### L 502.0500, L500.4100, L500.4050, L501.9520, L100.0100 ####[facility] [address] [place], [address] ALT [Catalytic activity/Vol] 17 U/L Normal 16-61 [facility] Comment on above: Performed By: #### L 502.0500, L500.4100, L500.4050, L501.9520, L100.0100 ####[facility] [address] [place], [address] AST [Catalytic activity/Vol] 23 U/L Normal 15-37 [facility] Comment on above: Performed By: #### L 502.0500, L500.4100, L500.4050, L501.9520, L100.0100 ####[facility] [address] [place], [address] Bilirubin [Mass/Vol] 0.40 mg/dL Normal 0.20-1.[address] [facility] Comment on above: Result Comment: For patients on eltrombopag therapy, use of Dimension Thornton TBIL is not recommended. Performed By: #### L 502.0500, L500.4100, L500.4050, L501.9520, L100.0100 ####[facility] [address] [place], [address] BUN/CRE 23.0 RATIO High 10-20 [facility] Comment on above: Performed By: #### L 502.0500, L500.4100, L500.4050, L501.9520, L100.0100 ####[facility] [address] [place], [address] CA,Total 9.5 mg/dL Normal 8.5-10.1 [facility] Comment on above: Performed By: #### L 502.0500, L500.4100, L500.4050, L501.9520, L100.0100 ####[facility] [address] [place], [address] Chloride [Moles/Vol] 103 mmol/L Normal 98-[address] [facility] Comment on above: Performed By: #### L 502.0500, L500.4100, L500.4050, L501.9520, L100.0100 ####[facility] [address] [place], [address] CO2 [Moles/Vol] 25.0 mmol/L Normal 21.0-32.0 [facility] Comment on above: Performed By: #### L 502.0500, L500.4100, L500.4050, L501.9520, L100.0100 ####[facility] [address] [place], [address] Creatinine [Mass/Vol] 0.82 mg/dL Normal 0.70-1.30 [facility] Comment on above: Result Comment: The validity of the calculated GFR GFRAA in patients over 70 years has not been determined. Clinical correlation is essential. Performed By: #### L 502.0500, L500.4100, L500.4050, L501.9520, L100.0100 ####[facility] [address] [place], [address] EST GFR - AA 121 mL/min Normal >60 [facility] Comment on above: Result Comment: Afri can [place] GFR Calc Performed By: #### L 502.0500, L500.4100, L500.4050, L501.9520, L100.0100 ####[facility] [address] [place], [address] GAP 8 Normal 5-15 [facility] Comment on above: Performed By: #### L 502.0500, L500.4100, L500.4050, L501.9520, L100.0100 ####[facility] [address] [place], [address] GFR/1.73 sq M.predicted among non-blacks MDRD (S/P/Bld) [Vol rate/Area] 100 mL/min/{1.73_m2} Normal >60 [facility] Comment on above: Result Comment: Non- GFR Calc Performed By: #### L 502.0500, L500.4100, L500.4050, L501.9520, L100.0100 ####[facility] [address] [place], [address] Globulin (S) [Mass/Vol] 3.7 g/dL Normal 2.2-4.[address] [facility] Comment on above: Performed By: #### L 502.0500, L500.4100, L500.4050, L501.9520, L100.0100 ####[facility] [address] [place], [address] Glucose [Mass/Vol] 120 mg/dL High 74-106 [facility] Comment on above: Result Comment: Fast ing Glucose result from 100 to 125 mg/dL suggests IMPAIRED HOMEOSTASIS per A.D.A. criteria. Performed By: #### L 502.0500, L500.4100, L500.4050, L501.9520, L100.0100 ####[facility] [address] [place], [address] Potassium [Moles/Vol] 4.3 mmol/L Normal 3.5-5.1 [facility] Comment on above: Performed By: #### L 502.0500, L500.4100, L500.4050, L501.9520, L100.0100 ####[facility] [address] [place], [address] Sodium [Moles/Vol] 136 mmol/L Normal 136-145 [facility] Comment on above: Performed By: #### L 502.0500, L500.4100, L500.4050, L501.9520, L100.0100 ####[facility] [address] [place], [address] T PROT 7.2 g/dL Normal 6.4-8.2 [facility] Comment on above: Performed By: #### L 502.0500, L500.4100, L500.4050, L501.9520, L100.0100 ####[facility] [address] [place], [address] Urea nitrogen [Mass/Vol] 19 mg/dL High 7-18 [facility] Comment on above: Performed By: #### L 502.0500, L500.4100, L500.4050, L501.9520, L100.0100 ####[facility] [address] [place], [address] Lipid Profileon 02-26-2024 Cholesterol [Mass/Vol] 121 mg/dL Normal 200 [facility] Comment on above: Result Comment: <200 mg/dL Desirable 200-240 mg/dL Borderline >240 mg/dL High Risk Performed By: #### L 502.0500, L500.4100, L500.4050, L501.9520, L100.0100 ####[facility] [address] [place], [address] Cholesterol in HDL [Mass/Vol] 43 mg/dL Normal [facility] Comment on above: Result Comment: The drugs N-Acetylcysteine and Metamizole may falsely depress this assay. Reference Range HDL <40 mg/dL Low HDL Cholesterol HDL >or= 60 mg/dL High HDL Cholesterol Performed By: #### L 502.0500, L500.4100, L500.4050, L501.9520, L100.0100 ####[facility] [address] [place], [address] Cholesterol in LDL [Mass/Vol] 59 mg/dL Normal 0-130 [facility] Comment on above: Performed By: #### L 502.0500, L500.4100, L500.4050, L501.9520, L100.0100 ####[facility] [address] [place], [address] Cholesterol in VLDL [Mass/Vol] 19 mg/dL Normal 5-40 [facility] Comment on above: Performed By: #### L 502.0500, L500.4100, L500.4050, L501.9520, L100.0100 ####[facility] [address] [place], [address] Triglyceride [Mass/Vol] 96 mg/dL Normal [facility] Comment on above: Result Comment: The drugs N-Acetylcysteine and Metamizole may falsely depress this assay. Serum Triglycerides Reference Interval Normal <150 mg/dL Borderline high 150 - 199 mg/dL High 200 - 499 mg/dL Very High > or = 500 mg/dL Performed By: #### L 502.0500, L500.4100, L500.4050, L501.9520, L100.0100 ####[facility] [address] [place], [address] Microalbumin,Random Urineon 02-26-2024 MICROALBUMIN,UR 8.6 mg/L Normal NO RANGE EST. [facility] Comment on above: Performed By: #### L 502.0500, L500.4100, L500.4050, L501.9520, L100.0100 #### [facility] [address] [place], [address] Thyroid Stim Hormone (TSH)on 02-26-2024 TSH 1.370 uIU/mL Normal 0.358-3.740 [facility] Comment on above: Performed By: #### L 502.0500, L500.4100, L500.4050, L501.9520, L100.0100 ####[facility] [address] [place], [address] Absolute lymphocyte countOrd ered By: [facility] Susana Garvin on 10-23-2023 Lymphocytes Auto (Unsp spec) [#/Vol] 2.35 10*3/uL 0.83-4.51 [facility] Automated lymphocyte count a s percentage of total leukocytesOrdered By: [facility] Susana Garvin on 10-23-2023 Lymphocytes/100 WBC Auto (Unsp spec) 37.5 % 19-41 [facility] Basophil percentageOrdered B y: [facility] Susana Garvin on 10-23-2023 Basophils/100 WBC (Bld) 0.6 % 0-[address] [facility] Bilirubin [Mass/Vol] 0.40 mg/dL 0.20-1.[address] [facility] Comment on above: For patients on eltr ombopag therapy, use of Dimension Thornton TBIL is not recommended. Chloride [Moles/Vol] 104 mmol/L 98-[address] [facility] Cholesterol [Mass/Vol] 150 mg/dL <200 [facility] Comment on above: <200 mg/dL Desirable 200-240 mg/dL Borderline >240 mg/dL High Risk Eosinophils/100 WBC (Bld) 2.4 % 0-5 [facility] Glucose [Mass/Vol] 234 mg/dL 74-106 [facility] Comment on above: Glucose result great er than or equal to 200 mg/dLsuggests DIABETES MELLITUS per A.D.A. criteria. Hemoglobin (Bld) [Mass/Vol] 14.6 g/dL 13.0-16.5 [facility] Monocytes/100 WBC (Bld) 7.2 % 0-[address] [facility] Neutrophils (Bld) [#/Vol] 3.3 10*3/uL 2.0-7.7 [facility] Neutrophils/100 WBC (Bld) 52.0 % 47-70 [facility] Potassium [Moles/Vol] 4.1 mmol/L 3.5-5.1 [facility] Protein [Mass/Vol] 7.5 g/dL 6.4-8.2 [facility] Sodium [Moles/Vol] 136 mmol/L 136-145 [facility] Triglyceride [Mass/Vol] 263 mg/dL <[address] [facility] Comment on above: The drugs N-Acetylcy steine and Metamizole may falsely depress this assay.Serum Triglycerides Reference Interval Normal <150 mg/dL Borderline high 150 - 199 mg/dL High 200 - 499 mg/dL Very High > or = 500 mg/dL WBC (Bld) [#/Vol] 6.3 10*3/uL 4.4-11.0 [facility] Determination of erythrocyte mean corpuscular volume (MCV)Ordered By: [facility] Suasna Garvin on 10-23-2023 MCV (RBC) [Entitic vol] 88.4 fL 80-94 [facility] Erythrocyte distribution wid th ratioOrdered By: [facility] Susana Garvin on 10-23-2023 Erythrocyte distribution width (RBC) [Ratio] 11.8 % 11.6-14.6 [facility] Erythrocyte distribution wid th standard deviationOrdered By: [facility] Susana Garvin on 10-23-2023 Erythrocyte distribution width (RBC) [Entitic vol] 37.8 fL 35.1-43.9 [facility] Hematocrit Auto (Bld) [Volum e fraction]Ordered By: [facility] Susana Garvin on 10-23-2023 Hematocrit (Bld) [Volume fraction] 42.8 % 40-54 [facility] Immature granulocytes/100 WB C Auto (Bld)Ordered By: [facility] Susana Garvin on 10-23-2023 Immature granulocytes/100 WBC (Bld) 0.300 % 0.0-0.9 [facility] Comment on above: IG% - Immature Granu locytes (promyelocytes, myelocytes and metamyelocytes) > 1% indicates that a LEFT SHIFT is Present. Laboratory - Chemistry and C hemistry - challengeOrdered By: [facility] Susana Bharathi on 10-23-2023 Albumin/Globulin [Mass ratio] 0.9 {ratio} 0.9-2.4 [facility] ALP [Catalytic activity/Vol] 133 U/L 45-117 [facility] ALT [Catalytic activity/Vol] 38 U/L 16-61 [facility] Cholesterol in HDL [Mass/Vol] 31 mg/dL >40 [facility] Comment on above: The drugs N-Acetylcy steine and Metamizole may falsely depress this assay. Reference Range HDL <40 mg/dL Low HDL Cholesterol HDL >or= 60 mg/dL High HDL Cholesterol Cholesterol in LDL [Mass/Vol] 66 mg/dL 0-130 [facility] CO2 [Moles/Vol] 27.0 mmol/L 21.0-32.0 [facility] Globulin (S) [Mass/Vol] 3.9 g/dL 2.2-4.[address] [facility] Urea nitrogen/Creatinine [Mass ratio] 18.3 mg/mg 10-20 [facility] - Hematology and Cell countsOrdered By: [facility] Susana Garvin on 10-23-2023 MCH (RBC) [Entitic mass] 30.2 pg 27.0-32.0 [facility] MCHC (RBC) [Mass/Vol] 34.1 g/dL 32-36 [facility] Nucleated RBC/100 WBC (Bld) [Ratio] 0 % 0-5 [facility] Platelet mean volume (Bld) [Entitic vol] 10.2 fL 6.2-12.0 [facility] Platelets (Bld) [#/Vol] 221 10*3/uL 150-450 [facility] No Panel InformationOrdered By: [facility] Susana Garvin on 10-23-2023 Estimated GFR (MDRD) Amer 105 mL/min >60 [facility] Comment on above: GFR Calc Estimated GFR (MDRD) Non-Af Amer 87 mL/min >60 [facility] Comment on above: Non- GFR Calc Prostate Specific Antigen Screen 0.98 ng/mL 0.00-4.00 [facility] Comment on above: This test was perfor med using the TPSA assay method for theICU Metrix chemistry system. Values obtained with differentassay methods cannot be used interchangably.When changing PSA assays in the course of monitoring apatient, additional sequential testing should be carriedout to confirm baseline values. VLDL Cholesterol 53 mg/dL 5-40 [facility] RBC Auto (Bld) [#/Vol]Ordere d By: [facility] Susana Garvin on 10-23-2023 RBC (Bld) [#/Vol] 4.84 10*6/uL 4.6-6.2 [facility] Serum or plasma calcium ruthie urement (mass/volume)Ordered By: [facility] Susana Garvin on 10-23-2023 Calcium [Mass/Vol] 9.1 mg/dL 8.5-10.1 [facility] Serum or plasma creatinine m easurement (mass/volume)Ordered By: [facility] Susana Gavrin on 10-23-2023 Creatinine [Mass/Vol] 0.93 mg/dL 0.70-1.30 [facility] Comment on above: The validity of the calculated GFR & GFRAA in patients over 70 years has not been determined. Clinical correlation is essential. Serum or plasma thyroid stim ulating hormone (TSH) measurement (units/volume)Ordered By: [facility] Susana Garvin on 10-23-2023 TSH Qn 1.52 uIU/mL 0.358-3.74 [facility] Serum or plasma urea nitroge n measurement (mass/volume)Ordered By: [facility] Susana Garvin on 10-23-2023 Urea nitrogen [Mass/Vol] 17 mg/dL 7-18 [facility] Thin prep Papanicolaou smear with manual screeningOrdered By: [facility] Susanagrant Garvin on 10-23-2023 Thin prep Papanicolaou smear with manual screening 3.6 g/dL 3.2-5.0 [facility] Thin prep Papanicolaou smear with manual screening 34 U/L 15-37 [facility] Thin prep Papanicolaou smear with manual screening 5 5-15 [facility] Whole blood hemoglobin A1c/t otal hemoglobin ratio (mass fraction)Ordered By: [facility] Susanagrant Garvin on 10-23-2023 HbA1c (Bld) [Mass fraction] 10.1 % 3.8-5.6 [facility] Comment on above: Normal < 5.7 % Predi abetic 5.7 - 6.4 % Diabetic >or= 6.5 % Please note range changes. CNOVon 10-13-2021 CNOV Office Visit (AGFAMPLE) GARRETT CACERES ([id number]) 1960 M Date Time Provider Department 10/13/21 [...] ?F) Resp 16 Ht 177.8 cm (5' 10") Wt 121.5 kg (267 lb 12.8 oz) [...] Coordination: Coordin (more content not included)... Normal [facility] Radha 09-21-2021 [facility] Telephone (AGINTMLW) GARRETT CACERES ([id number]) 1960 M Date Time Provider Department 09/21/21 HELEN ALVAREZ During your visit today, we [...] Status:Closed by LENO BARILLAS on 09/21/21 Normal [facility] CBC panel Auto (Bld)on 09-20 Erythrocyte distribution width (RBC) [Ratio] 12.4 % Normal 11.5-15.0 [facility] Comment on above: Order Comment: Speci men Type: BLOOD SPECIMEN Ordering Facility: [facility] Address: [address] [place] [address] Performed By: #### 5 8410-2 #### [facility] CLIA [id number] [address] [place] [address] [place] Hematocrit (Bld) [Volume fraction] 43.5 % Normal 39.0-51.0 [facility] Comment on above: Order Comment: Speci men Type: BLOOD SPECIMEN Ordering Facility: [facility] Address: [address] [place] [address] Performed By: #### 5 8410-2 #### [facility] CLIA [id number] [address] [place], [place] [address] [place] [address] [place] Hemoglobin (Bld) [Mass/Vol] 14.4 g/dL Normal 13.0-17.0 [facility] Comment on above: Order Comment: Speci men Type: BLOOD SPECIMEN Ordering Facility: [facility] Address: [address] [place] [address] Performed By: #### 5 8410-2 #### [facility] CLIA [id number] [address] [place] MCH (RBC) [Entitic mass] 30.3 pg Normal 26.0-34.0 [facility] Comment on above: Order Comment: Speci men Type: BLOOD SPECIMEN Ordering Facility: [facility] Address: [address] [place] [address] Performed By: #### 5 8410-2 #### [facility] CLIA [id number] [address] [place], [place] [address] [place] [address] [place] MCHC (RBC) [Mass/Vol] 33.1 g/dL Normal 30.5-36.0 [facility] Comment on above: Order Comment: Speci men Type: BLOOD SPECIMEN Ordering Facility: [facility] Address: [address] [place] [address] Performed By: #### 5 8410-2 #### [facility] CLIA [id number] [address] OF [place] MCV (RBC) [Entitic vol] 91.4 fL Normal 80.0-100.0 [facility] Comment on above: Order Comment: Speci men Type: BLOOD SPECIMEN Ordering Facility: [facility] Address: [address] [place] [address] Performed By: #### 5 8410-2 #### [facility] CLIA [id number] [address] [place] [address] [place] Platelet mean volume (Bld) [Entitic vol] 9.6 fL Normal 9.0-12.7 [facility] Comment on above: Order Comment: Speci men Type: BLOOD SPECIMEN Ordering Facility: [facility] Address: [address] [place] [address] Performed By: #### 5 8410-2 #### [facility] CLIA [id number] [address] [place] [address] [place] Platelets (Bld) [#/Vol] 202 10*3/uL Normal 150-400 [facility] Comment on above: Order Comment: Speci men Type: BLOOD SPECIMEN Ordering Facility: [facility] Address: [address] [place] [address] Performed By: #### 5 8410-2 #### [facility] CLIA [id number] [address] [place] [address] [place] RBC (Bld) [#/Vol] 4.76 10*6/uL Normal 4.20-6.00 [facility] Comment on above: Order Comment: Speci men Type: BLOOD SPECIMEN Ordering Facility: [facility] Address: [address] [place] [address] Performed By: #### 5 8410-2 #### [facility] CLIA [id number] [address] [place] [address] [place] WBC (Bld) [#/Vol] 4.32 10*3/uL Normal 3.70-11.00 [facility] Comment on above: Order Comment: Speci men Type: BLOOD SPECIMEN Ordering Facility: [facility] Address: [address] [place] [address] Performed By: #### 5 8410-2 #### [facility] CLIA [id number] [address] [place] [id number] [facility] CNPAnnette 09-20-2021 CNPN Telephone (AGINTMLW) GARRETT CACERES Regine ([id number]) 1960 M Date Time Provider Department 09/20/21 [...] BARILLAS on 09/20/21 [facility] GARRETT CACERES ([id number]) 1960 M Date Time Provider Department 09/20/21 [...] Status:Closed by SHRUTHI COBB on 09/20/21 Normal [facility] metabolic 2000 panelon 09-20-2021 Albumin [Mass/Vol] 4.4 g/dL Normal 3.9-4.9 [facility] Comment on above: Order Comment: Brooklynn avalos Type: BLOOD SPECIMEN Ordering Facility: [facility] Address: [address] [place] [address] Performed By: #### 2 4323-8, LIPB #### [facility] CLIA [id number] [address] [place] ALP [Catalytic activity/Vol] 102 U/L Normal 38-113 [facility] Comment on above: Order Comment: Brooklynn avalos Type: BLOOD SPECIMEN Ordering Facility: [facility] Address: [address] [place] [address] Performed By: #### 2 4323-8, LIPB #### [facility] CLIA [id number] [address] [place] ALT With P-5'-P [Catalytic activity/Vol] 22 U/L Normal 10-54 [facility] Comment on above: Order Comment: Estelai men Type: BLOOD SPECIMEN Ordering Facility: [facility] Address: [address] [place] [address] Performed By: #### 2 4323-8, LIPB #### [facility] CLIA [id number] [address] [place] [address] [place] Anion gap [Moles/Vol] 10 mmol/L Normal 9-18 [facility] Comment on above: Order Comment: Speci men Type: BLOOD SPECIMEN Ordering Facility: [facility] Address: [address] [place] [address] Performed By: #### 2 4323-8, LIPB #### [facility] CLIA [id number] [address] [place] [address] [place] AST With P-5'-P [Catalytic activity/Vol] 24 U/L Normal 14-40 [facility] Comment on above: Order Comment: Speci men Type: BLOOD SPECIMEN Ordering Facility: [facility] Address: [address] [place] [address] Performed By: #### 2 4323-8, LIPB #### [facility] CLIA [id number] [address] [place] [address] [place] Bilirubin [Mass/Vol] 0.3 mg/dL Normal 0.2-1.3 [facility] Comment on above: Order Comment: Speci men Type: BLOOD SPECIMEN Ordering Facility: [facility] Address: [address] [place] [address] Performed By: #### 2 4323-8, LIPB #### [facility] CLIA [id number] [address] [place] [address] [place] Calcium [Mass/Vol] 9.3 mg/dL Normal 8.5-10.2 [facility] Comment on above: Order Comment: Speci men Type: BLOOD SPECIMEN Ordering Facility: [facility] Address: [address] [place] [address] Performed By: #### 2 4323-8, LIPB #### [facility] CLIA [id number] [address] [place] [address] [place] Chloride [Moles/Vol] 104 mmol/L Normal 97-105 [facility] Comment on above: Order Comment: Speci men Type: BLOOD SPECIMEN Ordering Facility: [facility] Address: [address] [place] [address] Performed By: #### 2 4323-8, LIPB #### [facility] CLIA [id number] [address] [place] [address] [place] CO2 [Moles/Vol] 26 mmol/L Normal 22-30 [facility] Comment on above: Order Comment: Speci men Type: BLOOD SPECIMEN Ordering Facility: [facility] Address: [address] [place] [address] Performed By: #### 2 4323-8, LIPB #### [facility] CLIA [id number] [address] [place] Creatinine [Mass/Vol] 0.94 mg/dL Normal 0.73-1.22 [facility] Comment on above: Order Comment: Speci men Type: BLOOD SPECIMEN Ordering Facility: [facility] Address: [address] [place] [address] Performed By: #### 2 4323-8, LIPB #### [facility] CLIA [id number] [address] OF [facility] ESTIMATED GLOMERULAR FILTRATION RATE 92 mL/min/1.73m??? Normal >=60 [facility] Comment on above: Order Comment: Speci men Type: BLOOD SPECIMEN Ordering Facility: [facility] Address: [address] [place] [address] Result Comment: Jennie mated Glomerular Filtration Rate [...] By: #### 2 4323-8, LIPB #### [facility] CLIA [id number] [address] [place] [id number] [place] Glucose [Mass/Vol] 131 mg/dL High 74-99 [facility] Comment on above: Order Comment: Brooklynn avalos Type: BLOOD SPECIMEN Ordering Facility: [facility] Address: [address] [place] [address] Result Comment: The [place] Diabetes Association (ADA) provides guidance for cutoff [...] Standards of Medical Care in Diabetes 2016, British Diabetes Association. Diabetes Care. 2016.39(Suppl 1). Performed By: #### 2 4323-8, LIPB #### [facility] CLIA [id number] [address] [place] [address] [place] Potassium [Moles/Vol] 4.3 mmol/L Normal 3.7-5.1 [facility] Comment on above: Order Comment: Brooklynn avalos Type: BLOOD SPECIMEN Ordering Facility: [facility] Address: [address] [place] [address] Performed By: #### 2 4323-8, LIPB #### [facility] CLIA [id number] [address] [place] [address] [place] Protein [Mass/Vol] 7.1 g/dL Normal 6.3-8.0 [facility] Comment on above: Order Comment: Brooklynn avalos Type: BLOOD SPECIMEN Ordering Facility: [facility] Address: [address] [place] [address] Performed By: #### 2 4323-8, LIPB #### [facility] CLIA [id number] [address] [place] [address] [place] Sodium [Moles/Vol] 140 mmol/L Normal 136-144 [facility] Comment on above: Order Comment: Speci men Type: BLOOD SPECIMEN Ordering Facility: [facility] Address: [address] [place] [address] Performed By: #### 2 4323-8, LIPB #### [facility] CLIA [id number] [address] [place], [place] [address] [place] [address] STATES OF [facility] Urea nitrogen [Mass/Vol] 17 mg/dL Normal 9-24 [facility] Comment on above: Order Comment: Speci men Type: BLOOD SPECIMEN Ordering Facility: [facility] Address: [address] [place] [address] Performed By: #### 2 4323-8, LIPB #### [facility] CLIA [id number] [address] LIPID PANEL BASICon 09-21-19 22 Cholesterol [Mass/Vol] 188 mg/dL Normal <200 [facility] Comment on above: Order Comment: Speci men Type: BLOOD SPECIMEN Ordering Facility: [facility] Address: [address] [place] [address] Result Comment: <200 mg/dL, Desirable 200-239 mg/dL, Borderline high >239 mg/dL, High Performed By: #### 2 4323-8, LIPB #### [facility] CLIA [id number] [address] Cholesterol in HDL [Mass/Vol] 35 mg/dL Low >39 [facility] Comment on above: Order Comment: Speci men Type: BLOOD SPECIMEN Ordering Facility: [facility] Address: [address] [place] [address] Result Comment: 40-5 9 mg/dL, Acceptable >59 mg/dL, High: Negative risk factor for coronary heart disease <40 mg/dL, Low: Positive risk factor for coronary heart disease Performed By: #### 2 4323-8, LIPB #### [facility] CLIA [id number] [address] [place] [address] [place] [facility] Cholesterol in LDL [Mass/Vol] 106 mg/dL High <100 [facility] Comment on above: Order Comment: Brooklynn robbie Type: BLOOD SPECIMEN Ordering Facility: [facility] Address: [address] [place] [place] [address] Result Comment: <100 mg/dL, Optimal 100-129 mg/dL, Near optimal/above optimal 130-159 mg/dL, Borderline high 160-189 mg/dL, High >189 mg/dL, Very high Secondary prevention optimal LDL Cholesterol levels are recommended to be < 70 mg/dL Performed By: #### 2 4323-8, LIPB #### [facility] CLIA [id number] [address] [place] [address] [place] Cholesterol in LDL/Cholesterol in HDL [Mass ratio] 3.03 {ratio} High <2.54 [facility] Comment on above: Order Comment: Brooklynn robbie Type: BLOOD SPECIMEN Ordering Facility: [facility] Address: [address] [place] [address] Result Comment: Refe rence: 1. National Cholesterol Education Program ATP III Guideline At-A-Glance Quick Desk Reference: National Heart, Lung, and Blood Barrett. National Institutes of Health. 2001: NIH Publication No. 01-3305. 2. An International Atherosclerosis Society position paper: global recommendations for the management of dyslipidemia: executive summary, Atherosclerosis. 2014: 232(2):410-413. Performed By: #### 2 4323-8, LIPB #### [facility] CLIA [id number] [address] [place] [address] [place] Cholesterol in VLDL [Mass/Vol] 47 mg/dL High <30 [facility] Comment on above: Order Comment: Brooklynn robbie Type: BLOOD SPECIMEN Ordering Facility: [facility] Address: [address] Performed By: #### 2 4323-8, LIPB #### [facility] CLIA [id number] [address] [place] [address] [place] Cholesterol non HDL [Mass/Vol] 153 mg/dL High <130 [facility] Comment on above: Order Comment: Estelakeiko avalos Type: BLOOD SPECIMEN Ordering Facility: [facility] Address: [address] [place] [address] Result Comment: <130 mg/dL, Optimal 130-159 mg/dL, Near optimal/above optimal 160-189 mg/dL, Borderline high 190-219 mg/dL, High >219 mg/dL, Very high Secondary prevention optimal non HDL Cholesterol levels are recommended to be <100 mg/dL Performed By: #### 2 4323-8, LIPB #### [facility] CLIA [id number] [address] [place] [address] [place] Cholesterol.total/Choles terol in HDL [Mass ratio] 5.37 {ratio} High <5.10 [facility] Comment on above: Order Comment: Speci men Type: BLOOD SPECIMEN Ordering Facility: [facility] Address: [address] [place] [address] Performed By: #### 2 4323-8, LIPB #### [facility] CLIA [id number] [address] STATES OF [facility] FASTING TIME 12 hrs Normal [facility] Comment on above: Order Comment: Speci men Type: BLOOD SPECIMEN Ordering Facility: [facility] Address: [address] [place] [address] Performed By: #### 2 4323-8, LIPB #### [facility] CLIA [id number] [address] [place] [address] [facility] OF [place] Triglyceride [Mass/Vol] 234 mg/dL High <150 [facility] Comment on above: Order Comment: Speci men Type: BLOOD SPECIMEN Ordering Facility: [facility] Address: [address] [place] [address] Result Comment: <150 mg/dL, Normal 150-199 mg/dL, Borderline high 200-499 mg/dL, High >499 mg/dL, Very high Performed By: #### 2 4323-8, LIPB #### [facility] CLIA [id number] [address] [place] [address] [place] PSA/PROSTSPECAG SCRNon 09-20 Prostate specific Ag [Mass/Vol] 1.53 ng/mL Normal 0.00-3.90 [facility] Comment on above: Order Comment: Speci men Type: BLOOD SPECIMEN Ordering Facility: [facility] Address: [address] [place] [address] Result Comment: Ankit samuels PSA test methodology used is the Direct Chemiluminometric technology. Performed By: #### P SAS1 #### [facility] CLIA [id number] [address] [place] [id number] [facility] CNOVon 04-14-2021 CNOV Office Visit (AGINTMLW) GARRETT CACERES ([id number]) 1960 M Date Time Provider Department 04/14/21 8:20 AM KHOA HERNANDEZ AGINTMLW During your visit today, we recorded the following information about you: Temperature Pulse Respiration Blood pressure 97.7 degrees 67/minute 18/minute 122/78 Weight Height 114.3 kg 1.778 m Khoa Hernandez MD 04/14/2021 8:39 AM Signed This note was created using USB Promoster. Subjective Garrett Caceres is a 59 year [...] is no history of kidney disease or CAD/CA. There is no history of chronic renal [...] self-injury an (more content not included)... Normal [facility] CNCOon 04-13-2021 CNCO Letter Text Normal [facility] CNPNon 04-13-2021 CNPN Telephone (AGINTMLW) GARRETT CACERES ([id number]) 1960 M Date Time Provider Department 04/13/21 KHOA HERNANDEZ During your visit today, we [...] Yes Is this the Third or Fourth "No Show"? No Salma Quarles April 13, 2021 10:59 [...] Encounter Status:Closed by [facility] Telephone (AGINTMLW) GARRETT CACERES ([id number]) 1960 M Date Time Provider Department 01/10/21 KHOA HERNANDEZ During your visit today, we recorded the following information about you: Shruthi Cobb MA 01/10/2021 7:59 AM Signed ----- Message from Jessica Benson sent at 07/13/2020 2:14 PM EST ----- Regarding: AF patient Patient due for 6 month recheck A1C after it was borderline on 07/06/20 blood work and at that time patient had been on steroids. Jessica Benson, [facility] Khoa Hernandez MD 01/10/2021 8:25 AM Signed Ordered. Thanks. Joan Moffett LPN 01/10/2021 9:06 AM Signed Pt notified of orders. Joan Moffett LPN Allergies As of Date: 01/10/2021 (Not on File) Date Reviewed: 10/11/2020 Reviewed by: Khoa Hernandez - Fully Assessed Reason for Visit: Orders [681] Primary Visit Diagnosis:Elevated hemoglobin A1c [R73.09] Order(s):HGB A1C [[id number]] Order #: [id number] FUTURE Prescriptions as of 01/10/2021 - lisinopril [...] Status:Closed by KHOA HERNANDEZ on 01/10/21 Normal [facility] Vital Signs Date Time Vital Sign Value Performing Clinician Facility 01-09-2025 08:15-0400 Body temperature 98.5 [degF] Susana ARORA Work Phone: [facility] 01-09-2025 08:15-0400 Diastolic blood pressure 70 mm[Hg] Susana ARORA Work Phone: [facility] 01-09-2025 08:15-0400 Heart rate 69 /min Susana ARORA Work Phone: [facility] 01-09-2025 08:15-0400 Respiratory rate 16 /min Suasnagrant Garvin [employer] Work Phone: [facility] 01-09-2025 08:15-0400 SaO2% (BldA) [Mass fraction] 95 % Susanagrant Garvin [employer] Work Phone: [facility] 01-09-2025 08:15-0400 Systolic blood pressure 127 mm[Hg] Susana Garvin [employer] [facility] Work Phone: [facility] 01-09-2025 06:38-0400 Body height 175.26 cm Susana Garvin [employer] Work Phone: [facility] 01-09-2025 06:38-0400 Body mass index (BMI) [Ratio] 35.8 kg/m2 Susanagrant Garvin [employer] Work Phone: [facility] 01-09-2025 06:38-0400 Body weight 110 kg Susana Bharathi [employer] [facility] Work Phone: [facility] 10-13-2021 12:09-0400 Diastolic blood pressure 76 mm[Hg] Helen Sheets DO Work Phone: [facility] 10-13-2021 12:09-0400 Systolic blood pressure 128 mm[Hg] Helen Sheets DO Work Phone: [facility] 10-13-2021 11:59-0400 Body height 177.8 cm Helen Sheets DO Work Phone: [facility] 10-13-2021 11:59-0400 Body temperature 98.01 [degF] Helen Sheets DO Work Phone: [facility] 10-13-2021 11:59-0400 Body weight 121.47 kg Helen Sheets DO Work Phone: [facility] 10-13-2021 11:59-0400 Heart rate 108 /min Helen Sheets DO Work Phone: [facility] 10-13-2021 11:59-0400 Respiratory rate 16 /min Helen Sheets DO Work Phone: [facility] 10-13-2021 11:59-0400 SaO2% (BldA) [Mass fraction] 97 % Helen Sheets DO Work Phone: [facility] Encounters Encounter Date Encounter Type Care Provider Facility Start: 02-03-2025 End: 02-03-2025 ambulatory Susana Garvin [facility] Work Phone: -[facility] Start: 02-03-2025 End: 02-03-2025 Patient encounter procedure Zebuluyaneth Prasad [facility] -Sleep Lab Work Phone: Start: 02-03-2025 End: 02-03-2025 ambulatory Zebuluyaneth Beam [facility]SC Facility:[facility] Start: 01-09-2025 ambulatory Alex Lawson lity:[facility] Start: 01-09-2025 End: 01-09-2025 Non-patient / Non-visit Dr. Alex Delarosa MD -[facility] Start: 01-09-2025 End: 01-09-2025 Admission to same day surgery center Dr. Alex Delarosa MD -Endoscopy Work Phone: Start: 01-09-2025 End: 01-09-2025 ambulatory Susana Garvin [employer] Work Phone: -Endoscopy Start: 12-12-2024 Non-patient / Non-visit Dee Hart [facility] Work Phone: Start: 12-12-2024 ambulatory Susana Garvin [facility] Fa cility:[facility] Start: 11-18-2024 End: 11-18-2024 ambulatory Susana Garvin [employer] [facility] Work Phone: [facility] Work Phone: Start: 11-18-2024 End: 11-18-2024 Patient encounter procedure [facility] Susana Garvin [employer] -Laboratory Karlee Jimenez Start: 11-18-2024 End: 11-18-2024 ambulatory Susana Garvin [facility] Facility:[facility] Start: 02-26-2024 End: 02-26-2024 ambulatory Susana Garvin [facility] Facility:[facility] Start: 10-23-2023 End: 10-23-2023 ambulatory [facility] Work Phone: Start: 10-23-2023 End: 10-23-2023 Patient encounter procedure [facility]-Laboratory Work Phone: Start: 10-08-2023 Refill Helen C She ets DO Work Phone: [facility] Comment on above: Refill Request Start: 09-06-2023 Refill Helen C She ets DO Work Phone: [facility] Comment on above: Refill Request Start: 08-06-2023 Refill Helen C She ets DO Work Phone: [facility] Comment on above: Refill Request Start: 03-28-2023 Refill Helen C She ets DO Work Phone: [facility] Comment on above: Refill Request Start: 12-21-2022 Refill Helen C She ets DO Work Phone: [facility] Comment on above: Refill Request Start: 06-14-2022 Refill Helen C She ets DO Work Phone: [facility] Comment on above: Refill Request Start: 11-11-2021 ambulatory Helen C She ets DO Work Phone: [facility] Comment on above: Prescriptions Start: 10-13-2021 End: 10-13-2021 Patient encounter procedure Helen C Sheets DO Work Phone: [facility] Comment on above: Hypertension, essent ial (Primary Dx); Hyperlipidemia, mixed; BMI 38.0-38.9,adult; Obesity, Class II, BMI 35-39.9 Start: 09-21-2021 Telephone encounter Helen C Sheets DO Work Phone: [facility] Comment on above: Results Start: 09-20-2021 Telephone encounter Khoa grullon MD Work Phone: [facility] Comment on above: Results Procedures Date Procedure Procedure Detail Performing Clinician Start: 01-09-2025 Colonoscopy Susana neal [employer] Work Phone: Start: 11-18-2024 Prostate specific an tigen measurement Susana Garvin [employer] Work Phone: Comment on above: This test [...] S carlos enrique or Plasma Lipid Screening [facility] Start: 09-20-2026 Lipid panel Lipid Screening [facility] Start: 09-20-2026 LIPID SCREEN LIPID SCREEN [facility] Start: 09-20-2026 PROSTATE CANCER SCREENING DISCUSSION PROSTATE CANCER SCREENING DISCUSSION [facility] Start: 09-20-2026 Prostate specific antigen measurement Prostate Cancer Screening Discussion [facility] Start: 01-09-2025 Patient discharge [facility] Start: 09-20-2024 DIABETES SCREEN DIABETES SCREEN [facility] [facility] Start: 09-20-2024 Diabetes Screening Diabetes Screenin g [facility] Start: 08-29-2024 PROSTATE CANCER SCREENING DISCUSSION PROSTATE CANCER SCREENING DISCUSSION [facility] Start: 03-02-2024 Influenza vaccination Influenz a Vaccine (Season Ended) [facility] Start: 07-02-2023 Behavioral Health Screening Behavioral Health Screening [facility] Start: 07-02-2023 Depression Assessment Depression Ass essment [facility] Start: 03-11-2023 COLOGUARD (FIT-DNA) COLOGUARD (FIT-D NA) [facility] Start: 03-11-2023 COLORECTAL CANCER SCREENING COLORECTAL CANCER SCREENING [facility] Start: 03-11-2023 Screening for malign ant neoplasm of colon [facility] Start: 03-02-2023 Covid-19 Vaccine ( season) Covid-19 Vaccine ( season) [facility] Start: 03-02-2023 Influenza vaccination C [facility] Start: 10-13-2022 ANNUAL PCP TEAM CLIENT RELATIONS ASSOCIATE ERIKA DISEASE VISIT ANNUAL PCP TEAM CHRONIC DISEASE VISIT [facility] Start: 10-13-2022 BP CONTROLLED (<130/80) BP CONTROLLE D (<130/80) [facility] Start: 09-02-2022 HEPATITIS C SCREENING HEPATITIS C SC STEF [facility] Comment on above: Postponed from 04/19 (Declined at this time) Start: 09-02-2022 HIV SCREENING HIV SCREENING [facility] Comment on above: Postponed from 04/19 (Declined at this time) Start: 07-02-2022 DEPRESSION ASSESSMENT DEPRESSION ASS ESSMENT [facility] Start: 04-14-2022 Adult depression screening assessment DEPRESSION SCREENING [facility] Start: 04-14-2022 ANNUAL PCP TEAM CLIENT RELATIONS ASSOCIATE ERIKA DISEASE VISIT ANNUAL PCP TEAM CHRONIC DISEASE VISIT [facility] Start: 04-14-2022 BP CONTROLLED (<130/80) BP CONTROLLE D (<130/80) [facility] Start: 04-14-2022 COVID-19 VACCINE (#1) COVID-19 VACCI NE (#1) [facility] Comment on above: Postponed from 04/19 (Declined at this time) Start: 04-14-2022 COVID-19 VACCINE (1) COVID-19 VACCIN E (1) [facility] Comment on above: Postponed from 04/19 (Declined at this time) Start: 04-14-2022 SHINGRIX VACCINE (1 of 2) SHINGRIX VACCINE (1 of 2) [facility] Comment on above: Postponed from 04/19 (Declined at this time) Start: 04-14-2022 Urine microalbumin profile DTAP,TDAP,TD (1 - Tdap) [facility] Comment on above: Postponed from 04/19 (Declined at this time) Start: 03-02-2022 Influenza vaccination C [facility] Start: 12-29-2021 Influenza vaccination INFLUENZA (#1) [facility] Comment on above: Postponed from 03/02 (Declined at this time) Start: 07-02-2021 DEPRESSION ASSESSMENT DEPRESSION ASS ESSMENT [facility] Start: 2019 RSV Vaccine (1 - 1-d ose 60+ series) RSV Vaccine (1 - 1-dose 60+ series) [facility] Start: 2009 Influenza vaccination LUNG CANCER [facility] Start: 2009 SHINGRIX VACCINE (1 of 2) SHINGRIX VACCINE (1 of 2) [facility] Start: 2004 Colonoscopy COLONOSCOPY [facility] Start: [address] COLONOGRAPHY [facility] Start: 2004 FECAL OCCULT BLOOD FECAL OCCULT BLOO D [facility] Start: 2004 Screening for malign ant neoplasm of colon [facility] Start: 2004 SIGMOIDOSCOPY SIGMOIDOSCOPY [facility] Start: 1978 Urine microalbumin profile [facility] Start: 1977 HEPATITIS C SCREENING HEPATITIS C [facility] Start: 1977 Hepatitis C screening Hepatitis C [facility] Start: 1977 HIV SCREENING HIV SCREENING [facility] Start: 1977 HIV screening HIV Screening [facility] Start: 1959 COVID-19 VACCINE (#1) COVID-19 VACCI NE (#1) [facility] Payers Date Payer Category Payer Medicare [id number] 2024 Medicare [id number] 2024 Medicare [id number] 2024 Self-pay 2024 Unknown [id number] 2022 Unknown [facility] [id number] 2022-Present Other [id number] 2013 Private Health Insurance AETNA AETNA CHOICE POS II [id number] 2013-Present [phone] [address] [place] [address] POS [id number] Private Health Insurance [id number] Unknown [id number] Unknown [id number] Unknown [id number] Unknown [id number] Unknown [id number] Unknown [id number] Unknown [id number] Unknown [id number] Social History Date Type Detail Facility Start: 03-02-2020 End: 01-09-2025 Tobacco smoking status NHIS Ex-smoker [facility] End: 08-30-2012 History of tobacco use Current smoker [facility] Start: 03-02-2020 End: 08-16-2023 Cigarettes smoked current (pack per day) - Reported 3 [facility] Start: 03-02-2020 Tobacco use and exposure Smokeless tobacco non-user [facility] Start: 04-14-2021 End: 10-13-2021 Alcohol intake Current drinker of alcohol (finding) [facility] Start: 03-02-2020 History SDOH Alcohol Binge 3 [facility] Start: 03-02-2020 History SDOH Alcohol Comment social [facility] Start: 1960 Sex Assigned At Not on file [facility] Start: 09-10-2021 End: 10-13-2021 Exposure to SARS-CoV-2 (event) Not sure [facility] End: 08-30-2012 History of tobacco use Cigarette Smoker [facility] Start: 03-02-2020 End: 08-16-2023 Alcohol Use Disorder Identification Test - Consumption [AUDIT-C] [facility] Frequency of Alcohol Consumption Not on file [facility] How often do you hav e 6 or more drinks on 1 occasion? Monthly [facility] Start: 02-29-2020 Gender identity Identifies as male gender (finding) [facility] Start: 02-29-2020 Sexual orientation Heterosexual (finding) [facility] Start: 1960 Sex Assigned At Male [facility] Tobacco smoking stat us NHIS Unknown if ever smoked [facility] Work Phone: Medical Equipment Procedure Code Equipment Code Equipment Original Text Equipment Identifier Dates Start: 08-30-2020 Comment on above: Use as instructed, a s covered by insurance Inject 1 Lancet subc utaneously once daily. As covered by insurance Goals Date Patient Goal Desired Activity /State Mental Status Date Assessment Result Facility 01-09-2025 Cognitive function Voice/Name [facility] Work Phone: Clinical Notes 04-14-2021 to 01-09-2025 Note Date & Type Note Facility 01-09-2025 Evaluation note Diagnosis Onset Date Resolution Screen for colon cancer acute January 09, 2025 6:13am [facility] Work Phone: 1(831) 352-712107-11-2025 Consult note [facility] Medical Records Department [address] [place] [address] Anesthesia Postop Eval I 01/09/25 0759 MR#: [id number] Acct: [id number] Name: GARRETT CACERES Rep #:[id number] : 1960 64 From: Dallin Carrera PCP: Susana Garvin, DINORAH, MAGAZINE HAND-C Statu s:REG SDC Y Race: C Location: [place] [address] Anesthesia: Postop Eval I Current Vital Signs [...] Yes 01/09/25 0800 > Date _ Dallin Paulino Signature: Date CC: ~ Signed [facility]07-11-2025 Procedure note [facility] Medical Records Department [address] [place] [address] Colonoscopy Report MR#: [id number] Acct: [id number] Name: GARRETT CACERES Rep #:[id number] : 1960 64 From: Alex schmid MD PCP: DINORAH Fall, MAITE Statu s:[facility] Patient Name: Garrett Caceres Procedure Date: 01/09/2025 7:17 AM Date of : 1960 Age: 64 Procedure: Colonoscopy Indications: Screening for colorectal malignant neoplasm Providers: Alex Delarosa MD Referring MD: Susana Copeland, Margaritac Medicines: Propofol per Anesthesia Patient Profile: This [...] screening purposes. Procedure Code(s): --- Professional --- 27821, Colonoscopy, flexible; diagnostic, including collection of specimen(s) by brushing or washing, when performed (separate procedure) Diagnosis Code(s): --- Professional --- Z12.11, Encounter for screening for malignant neoplasm of colon CPT copyright 2021 [employer]. All rights reserved. The codes documented in this report are preliminary and upon air hose coupler review may be revised to meet current compliance requirements. Alex Delarosa MD 01/09/2025 7:51:56 AM This report has been signed electronically. Number of Addenda: 0 Note Initiated On: 01/09/2025 7:17 AM 01/09/25 0752 Date _ Alex Delarosa MD Cosigner Signature: Date (if indicated) CC: DINORAH Garvin; Dr. Alex Delarosa MD ~ Date Dictated: 01/09/25716 Date Transcribed: Process Improvement Analyst: DARIEL Signed [facility]07-11-2025 Procedure note [facility] Medical Records Department [address] [place] [address] Operative Report - CC Letter MR#: [id number] Acct: [id number] Name: GARRETT CACERES Rep #:[id number] : 1960 64 From: Alex schmid MD PCP: DINORAH Fall, MAGAZINE HAND-C Statu s:REG SDC 01/09/2025 Susana Copeland, Dietary Service AideHerminioc Re : Colonoscopy procedure for Garrett Caceres Dear Bharathi This procedure was performed on Sunday, January 09, 2025. My impressions and recommendations [...] Cosigner Signature: Date (if indicated) CC: DINORAH Garvin; Dr. Alex Delarosa MD ~ Date Dictated: 01/09/25716 Date Transcribed: Process Improvement Analyst: DARIEL Signed [facility]07-11-2025 Consult note [facility] Medical Records Department [address] [place] [address] Pre-Anesthesia Evaluation 01/09/25 0726 MR#: [id number] Acct: [id number] Name: GARRETT CACERES Rep #:[id number] : 1960 64 From: Lucas Mcwilliams MD PCP: Susana Garvin, VSC, MAGAZINE HAND-C Statu s:REG SDC Y Race: C Location: [place] [address] ASA Classification* ASA Classification ASA Classification: 2 [...] 11/18/24 TSH 1.370 uIU/mL (0.358-3.740) 02/26/24 09:47 0801/22 COAG Pre-Assessment Diagnosis/Proposed Procedure Planned Operative Procedure(s): COLONOSCOPY Anesthesia History 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 Hx Hospitalization No 01/09/25 07:20 Any Problems [...] take am of surgery PONV 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 Female No 01/08/25 09:44 HX of Motion [...] 01/09/25 06:38 Respiratory Assessment Respiratory Assessment - 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: Respiratory Tract Infection 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 Hx Respiratory Tract Infection No 01/09/25 07:20 STOP Sleep Apnea STOP Sleep Apnea - 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: STOP Sleep Apnea - 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 Hx Hypertension Yes: CONTROLLED WITH MEDS 01/09/25 [...] Tobacco Use History Tobacco Use 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: Tobacco Use 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 Tobacco Use Smoking Status Former smoker 01/09/25 07:20 Hx Tobacco Use No 01/08/25 09:44 Years Smoking Packs Smoked per Day Smoking Cessation Date was Yes - quit smoking within 15 01/08/25 09:44 within the last 15 years years Hx Smoking Cessation Date Hx Smoking Cessation Counseling Hematologic Medial History Hematologic 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: 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 Hx of Blood Transfusion No 01/08/25 09:44 [...] confused, unrespo /Reproduction History /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 [facility] He had a Cologuard about 8 years ago which was negative. He denies abdominal pain or blood inthe stool. He has no family history of colon cancer. [facility] Medical History (Updated 01/09/25 @ 07:19 by [...] proceed with procedure. Alex Delarosa MD Pager: [facility] [address] [place] [address], [address] [place] [id number] Office: Surgery Risks - Colonoscopy Risks Include but are not Limited To: Risks include but are not limited to: Bleeding, perforation requiring further surgery, inability to complete colonoscopy requiring barium enema. 01/09/25719 Cosigner Signature (if applicable): CC: DINORAH MAGAZINE HAND-C Susana Garvin; Dr. Alex Delarosa MD~ Signed [facility]07-11-2025 [facility] Medical Records Department [address] [place] [address] History Physical Exam 01/09/25718 MR#: [id number] Acct: [id number] Name: GARRETT CACERES Rep #: [id number] : 1960 64 From: Alex Delarosa MD PCP: DINORAH Fall, MAGAZINE HAND-C Status:[facility] Location: [place] [address]- HPI - General HPI Narrative GARRETT CACERES, is a 64 M who presents for screening colonoscopy. He has never had a colonoscopy in the past. He had a Cologuard about 8 years ago which was negative. He denies abdominal pain or blood in the stool. He has no family history of colon cancer. [facility] Medical History (Updated 01/09/25 @ 07:19 by [...] proceed with procedure. Alex Delarosa MD Pager: [facility] [address] [place] [address], [address] [place] [address] Office: Surgery Risks - Colonoscopy Risks Include but are not Limited To: Risks include but are not limited to: Bleeding, perforation requiring further surgery, inability to complete colonoscopy requiring barium enema. 01/09/25 0720 Cosigner Signature (if applicable): CC: [facility] MAGAZINE HAND-C Susana Garvin; Dr. Alex Delarosa MD [facility]WSt[facility]04-08-[facility] Miscellaneous Notes* Telephone Encounter - Leno Barillas MA - 10/08/2023 1:16 PM EDT Pharmacy requesting refills as follows: Last Office Visit 10/13/21 NOV none. Last Refill 09/06/23. Patient scheduled with the [facility] on 10/23/23 and he is working on [...] advise. Leno Barillas [facility] Miscellaneous Notes* Telephone Encounter - Leno Barillas MA - 09/07/2023 7:58 AM EST Patient is informed Leno Barillas MA * Telephone Encounter - Helen Alvarez DO - 09/06/2023 8:01 PM EST Please notify pt I sent in his Rx. He may want to contact the [facility] in [place] at [phone]. They may be able to take care of him since he does not have insurance Helen Alvarez DO * Telephone Encounter - Jessica [...] advise. Jessica Benson MA [facility]02-06-2024 Miscellaneous Notes* Telephone Encounter - Leno Barillas MA - 08/07/2023 4:19 PM EST Left message informing patient, phone number to reach the office was left for any questions or concerns. Leno Barillas MA * Telephone Encounter - Helen Alvarez DO - 08/07/2023 4:04 PM EST Please notify pt he is overdue for f/u appt. I will send in #30 of both his prescriptions, but no more after that Helen Alvarez DO * Telephone Encounter - Jessica [...] advise. Jessica Benson MA [facility]09-28-2023 Miscellaneous Notes* Telephone Encounter - Leno Barillas MA - 03/29/2023 5:31 PM EDT Patient is informed Leno Barillas MA * Telephone Encounter - Helen Alvarez DO - 03/28/2023 10:48 AM EDT Please notify pt he is overdue for appt Helen Alvarez DO * Telephone Encounter - Aylin Shabazz MA - 03/28/2023 10:39 AM EDT Pharmacy requesting refills: Last office visit 10/13/21. Last refill 6/22/23. Requested Prescriptions Pending Prescriptions Disp Refills atorvastatin (LIPITOR) 10 mg tablet [Pharmacy Med Name: atorvastatin 10 mg tablet] 90 tablet 0 Sig: take 1 tablet by mouth once daily Please review and advise. BASIL Taylor documented in this encounterK[facility]06-22-2023 Miscellaneous Notes* Telephone Encounter - Jessica Benson [...] advise. Jessica Benson MA [facility] in [facility]12-14-2022 Miscellaneous Notes* Telephone Encounter - Jessica Benson [...] advise. Jessica Benson MA [facility]05-13-2022 Miscellaneous Notes* Telephone Encounter - Aylin Shabazz MA - 11/11/2021 8:43 AM EDT magdiel 10/13/2021 Nov 04/14/2022 documented in this encounterK[facility]04-14-2022 NoteHNO ID: [id number] Author: Helen Alvarez, DO Service: ? Author [...] ?F) Resp 16 Ht 177.8 cm (5' 10") Wt 121.5 kg (267 lb 12.8 oz) [...] and memory normal. Judg (more content not included)...[facility]04-14-2022 History of Present illness Narrative* Helen Stephens Antonio, DO - 10/13/2021 12:06 PM EDT Subjective [...] F) Resp 16 Ht 177.8 cm (5' 10") Wt 121.5 kg (267 lb 12.8 oz) [...] recommended Helen Alvarez DO documented in this encounterK[facility]03-23-2022 Miscellaneous Notes* Telephone Encounter - Leno Barillas MA - 09/21/2021 11:04 AM EDT Patient is informed. Leno Barillas MA * Telephone Encounter - Leno Barillas MA - 09/21/2021 11:01 AM EDT ----- Message from Khoa Hernandez MD sent at 09/21/2021 11:00 AM EDT ----- Normal PSA documented in this [facility]03-22-2022 Miscellaneous Notes* Telephone Encounter - [...] unremarkable. PSA still pending. documented in this [facility]03-22-2022 Miscellaneous Notes* Telephone Encounter - Leno Barillas MA - 09/20/2021 2:23 PM EDT Patient informed. Leno Barillas MA * Telephone Encounter - Leno Barillas MA - 09/20/2021 2:22 PM EDT ----- Message from Khoa Hernandez MD sent at 09/20/2021 11:57 AM EDT ----- Normal CBC. Remaining labs are still pending. documented in this encounterK[facility]10-14-2021 NoteHNO ID: [id number] Author: Khoa Hernandez MD Service: ? Author Type: Physician Type: Progress Notes Filed: 04/14/2021 8:39 AM Note Text: This note was created using [employer]. Subjective Garrett Caceres is a 59 year [...] is no history of kidney disease or CAD/CA. There is no history of chronic renal [...] ?F) Resp 18 Ht 177.8 cm (5' 10") Wt 114.3 kg (252 lb) SpO2 95% BMI 36.16 kg/m? Physical Exam Vitals and nursing note reviewed. Constitutional: General: (more content not included)...[facility] note Author Lucas Mcwilliams [facility] Note Date/Time January 09, 2025 7:27 am [facility] Medical Records Department [address] [place] [address] Pre-Anesthesia Evaluation 01/09/25 0726 MR#: [id number] Acct: [id number] Name: GARRETT CACERES Rep #:[id number] : 1960 64 From: Lucas Mcwilliams MD PCP: Susana Garvin, [facility], MAGAZINE HAND-C Statu s:REG SDC Y Race: C Location: [place] [address] ASA Classification* ASA Classification ASA Classification: 2 [...] 10:02 11/18/24 RBC 4.76 M/mm3 (4.6-6.2) 11/18/24 10:11/18/24 Hgb 14.6 g/dL (13.0-16.5) 11/18/24 10:02 11/18/24 [...] Procedure(s): COLONOSCOPY Anesthesia History 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 Hx Hospitalization No 01/09/25 07:20 Any Problems [...] take am of surgery PONV 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 Female No 01/08/25 09:44 HX of Motion [...] 01/09/25 06:38 Respiratory Assessment Respiratory Assessment - 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: Respiratory Tract Infection 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 Hx Respiratory Tract Infection No 01/09/25 07:20 STOP Sleep Apnea STOP Sleep Apnea - 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: STOP Sleep Apnea - 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 Hx Hypertension Yes: CONTROLLED WITH MEDS 01/09/25 [...] Tobacco Use History Tobacco Use 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: Tobacco Use 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 Tobacco Use Smoking Status Former smoker 01/09/25 07:20 Hx Tobacco Use No 01/08/25 09:44 Years Smoking Packs Smoked per Day Smoking Cessation Date was Yes - quit smoking within 15 01/08/25 09:44 within the last 15 years years Hx Smoking Cessation Date Hx Smoking Cessation Counseling Hematologic Medial History Hematologic 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: 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 Hx of Blood Transfusion No 01/08/25 09:44 [...] confused, unrespo /Reproduction History /Reproductive 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: /Reproductive Hx- 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 Hx Now Gestational Age (in weeks): EDC: Hx Hx Para Hx Section SAB Active Medications Active Medications: Current Medications Generic Name Dose Route Start Last Admin Trade Name Yaakovq PRN Reason Stop Dose Admin Lactated Ringer's [...] Lucas Mcwilliams MD > Date _ Lucas Yeboahigner Signature: Date CC: ~ Signed [facility] Work Phone: Consult note Author Dallin Carrera [facility] Note Date/Time January 09, 2025 8:00 am [facility] Medical Records Department [address] [place] [address] Anesthesia Postop Eval I 01/09/25 0759 MR#: [id number] Acct: [id number] Name: GARRETT CACERES Rep #:[id number] : 1960 64 From: Dallin Carrera PCP: Susana Garvin, JAYC, MAGAZINE HAND-C Statu s:REG SDC Y Race: C Location: [place] [address] Anesthesia: Postop Eval I Current Vital Signs [...] by Dallin Carrera > Date _ Dallin Paulino Signature: Date CC: ~ Signed [facility] Work Phone: Evaluation note* Diagnosis Hypertension, essential- Primary Unspecified essential hypertension Hyperlipidemia, mixed Mixed hyperlipidemia BMI 38.0-38.9,adult Body Mass Index 38.0-38.9, adult Obesity, Class II, BMI 35-39.9 Obesity, unspecified documented in this encounter [facility]* Diagnosis Essential hypertension Unspecified essential hypertension [facility] Diagnosis Essential hypertension Unspecified essential hypertension [facility] Diagnosis Essential hypertension Unspecified essential hypertension documented in this encounter [facility]* Diagnosis Essential hypertension Unspecified essential hypertension documented in this encounter [facility]* Diagnosis Essential hypertension Unspecified essential hypertension documented in this encounter [facility]* Diagnosis Essential hypertension Unspecified essential hypertension documented in this encounter [facility] noteNo assessment information availableWSt. [facility] of [facility] Work Phone: History and physical note Author Alex Delarosa [facility] Note Date/Time January 09, 2025 7:20 am [facility] Medical Records Department [address] [place] [address] History & Physical Exam 01/09/25718 MR#: [id number] Acct: [id number] Name: GARRETT CACERES Rep #:[id number] : 1960 64 From: Alex schmid MD PCP: Susana Garvin Angelo, MAGAZINE HAND-C Statu s:REG [facility] Location: [place] [address] HPI - General HPI Narrative GARRETT CACERES, is a 64 M who presents for screening colonoscopy. He has never hada colonoscopy in the past. He had a Cologuard about 8 years ago which was negative. He denies abdominal pain or blood in the stool. He has no family history of colon cancer. [facility] Medical History (Updated 01/09/25 @ 07:19 by [...] proceed with procedure. Alex Delarosa MD Pager: [facility] [address] [place] [address], [address] [place] [address] Office: Surgery Risks - Colonoscopy Risks Include but are not Limited To: Risks include but are not limited to: Bleeding, perforation requiring further surgery, inability to complete colonoscopy requiring barium enema. 01/09/25 0720 <Electronically signed by Alex Delarosa MD> Cosigner Signature (if applicable): CC: [employer] Susana Garvin; Dr. Alex Delarosa MD~ Signed [facility] Work Phone: Reason for referral (narrative)No reason for referral information availableWSt. John of God Hospital Work Phone: Summary Purpose Family History No Family History Records FoundNo Family History Records FoundNo Family History Records Found Advance Directives No Advanced Directives Records Found Advance Directive Response Recorded Date/ Time Do you have a Healthcare Power of Marketing Analytics Specialist? No January 08, 2025 9:44am Chief Complaint and Reason for Visit Chief Complaint Admit Date Amb Documentation December 12, 2024 9:28 am Reason for Visit Admit Date Screen for colon cancer January 09, 2025 6:13am Chief Complaint Admit Date Amb Documentation December 12, 2024 9:28 am IRR HB January 09, 2025 6:53 am HYPERSOMNIA February 03, 2025 10: 44am Additional Source Comments Source Comments (unrecognize d section and content) In the event this informatio n is protected by the Federal Confidentiality of Alcohol and Drug Abuse Patient Records regulations: The Federal rules restrict any use of the information to criminally investigate or prosecute any alcohol or drug abuse patient.[facility] the event this information is protected by the Federal Confidentiality of Alcohol and Drug Abuse Patient Records regulations: The Federal rules restrict any use of the information to criminally investigate or prosecute any alcohol or drug abuse patient.[facility] Health[facility] the event this information is protected by the Federal Confidentiality of Alcohol and Drug Abuse Patient Records regulations: The Federal rules restrict any use of the information to criminally investigate or prosecute any alcohol or drug abuse patient.[facility] the event this information is protected by the Federal Confidentiality of Alcohol and Drug Abuse Patient Records regulations: The Federal rules restrict any use of the information to criminally investigate or prosecute any alcohol or drug abuse patient.[facility] HealthIn the event this information is protected by the Federal Confidentiality of Alcohol and Drug Abuse Patient Records regulations: The Federal rules restrict any use of the information to criminally investigate or prosecute any alcohol or drug abuse patient.[facility] Health[facility] the event this information is protected by the Federal Confidentiality of Alcohol and Drug Abuse Patient Records regulations: The Federal rules restrict any use of the information to criminally investigate or prosecute any alcohol or drug abuse patient.[facility] the event this information is protected by the Federal Confidentiality of Alcohol and Drug Abuse Patient Records regulations: The Federal rules restrict any use of the information to criminally investigate or prosecute any alcohol or drug abuse patient.[facility] HealthIn the event this information is protected by the Federal Confidentiality of Alcohol and Drug Abuse Patient Records regulations: The Federal rules restrict any use of the information to criminally investigate or prosecute any alcohol or drug abuse patient.[facility] HealthIn the event this information is protected by the Federal Confidentiality of Alcohol and Drug Abuse Patient Records regulations: The Federal rules restrict any use of the information to criminally investigate or prosecute any alcohol or drug abuse patient.[facility] Health[facility] the event this information is protected by the Federal Confidentiality of Alcohol and Drug Abuse Patient Records regulations: The Federal rules restrict any use of the information to criminally investigate or prosecute any alcohol or drug abuse patient.[facility] Reason for Visit (unrecogniz ed section and content) Reason Comments Results Reason Comments Hypertension 6 month follow up Establish Care former Dr. 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 Relationship Specialty Start Date End Date Helen Alvarez DO [address] [facility] [place] [id number] PCP - General Family Medicine 08/18/21 Team Status: Active Member Role Status Dates Susana Garvin VSC, [employer] Primary Care Provider Activ e Team Status: Inactive Member Role Status Dates Susana Bharathi VSC, [employer] Primary Care Provider, Attending Provider, Referring Provider Active Team Status: Inactive Member Role Status Dates Susana Garvin VSC, [employer] Primary Care Provider Activ e Start: November 18, 2024 End: November 18, 2024 Susana Garvin VSC, [employer] HAND[employer]C Attending Provider Active Start: November 18, 2024 End: November 18, 2024 Team Status: Active Member Role/Relationship Status Dates Susana Garvin VSC, [employer] HAND-C Primary Care Provider Activ e Team Status: Inactive Member Role/Relationship Status Dates Susana Garvin VSC, MAG[employer]INE HAND-C Primary Care Provider Activ e Start: November 18, 2024 End: November 18, 2024 Susana Bharathi VSC, [employer] HAND-C Attending Provider Active Start: November 18, 2024 End: November 18, 2024 Team Status: Active Member Role/Relationship Status Dates Susana Garvin VSC, [employer]INE HAND-C Primary Care Provider Activ e Start: December 12, 2024 Dee Hart Attending Provider Active Start: 2024 Team Status: Inactive Member Role/Relationship Status Dates Susana Garvin VSC, [employer]INE HAND-C Primary Care Provider Activ e Start: January 09, 2025 End: January 09, 2025 Susana Bharathi VSC, [employer]INE HAND-C Referring Provider Active Start: January 09, 2025 End: January 09, 2025 Dr. Alex Delarosa MD Attending Provider Active Start: January 09, 2025 End: January 09, 2025 Team Status: Active Member Role/Relationship Status Dates Susana Bharathi VSC, [employer]INE HAND-C Primary Care Provider Activ e Start: January 09, 2025 Susanagrant Garvin VSC, MAG[employer]INE HAND-C Referring Provider Active Start: January 09, 2025 Dr. Alex Delarosa MD Attending Provider Active Start: January 09, 2025 Dr. Alex Delarosa MD Other Provider Active Start: January 09, 2025 Team Status: Active Member Role/Relationship Status Dates Susanagrant Garvin VSC, [employer]INE HAND-C Primary Care Provider Activ e Start: January 09, 2025 End: January 09, 2025 Dr. Luan Ayoub MD Attending Provider Active Start: January 09, 2025 End: January 09, 2025 Dr. Alex Delarosa MD Referring Provider Active Start: January 09, 2025 End: January 09, 2025 Team Status: Active Member Role/Relationship Status Dates Susana COPELAND, [employer]INE HAND-C Primary Care Provider Activ e Start: January 09, 2025 Susana COPELAND, MAGAZINE HAND-C Referring Provider Active Start: January 09, 2025 Dr. Alex Delarosa MD Attending Provider Active Start: January 09, 2025 Dr. Alex Delarosa MD Other Provider Active Start: January 09, 2025 Team Status: Inactive Member Role/Relationship Status Dates Susana COPELAND, MAG[employer]INE HAND-C Primary Care Provider Activ e Start: February 03, 2025 End: February 03, 2025 Zebulun Beam VSC, [employer]INE HAND-[employer] Attending Provider Active Start: February 03, 2025 End: February 03, 2025 [place] Beam Referring Provider Active Start: 2024 End: February 03, 2025 (unrecognized sect ion and content) No Status Records FoundNo Status Records FoundNo Status Records Found INFORMATION SOURCE (unrecogn ized section and content) DATE CREATED AUTHOR 10/14/2021 [facility] DATE CREATED AUTHOR AUTHOR'S ORGANIZ ATION 11/01/2021 [facility] DATE CREATED AUTHOR AUTHOR'S ORGANIZ ATION 02/13/2025 [facility] Goals (unrecognized section and content) Goals [...] BE BASED ON THE PRIMARY CLINICAL RECORDS. [employer] provides no warranty or guarantee of the accuracy or completeness of information in this document.
[2025-05-20 11:07] LABS: Hematocrit 40.9 % (40-54); Hemoglobin 13.6 g/dL (13.0-16.5); Immature Granulocytes Count 0.010 X10^3/uL (0.0-0.0); Mean Corp Hgb Conc 33.3 g/dL (32-36); Mean Corpuscular Volume 90.7 fL (80-94); Mean Platelet Vol. 9.8 fl (6.2-12.0); NRBC Flagged by Analyzer 0 % (0-5); Platelet Count 231 K/mm3 (150-450); RBC Distribution Width CV 12.3 % (11.6-14.6); RBC Distribution Width SD 40.5 fl (35.1-43.9); Red Blood Count 4.51 M/mm3 (4.6-6.2); White Blood Count 5.2 K/mm3 (4.4-11.0)
[2025-05-20 12:05] LABS: Microalbumin,Random Urine < 12.0 mg/L (<20 mg/L)
[2025-05-20 12:08] LABS: AST(SGOT) 33 U/L (<=37); Alanine Aminotransfer ALT/SGPT 21 U/L (<=46); Albumin, Serum 4.1 g/dL (3.4-4.8); Alkaline Phosphatase 102 U/L (40-129); Anion Gap 10 (5-15); BUN 14 mg/dL (4-19); BUN/Creat Ratio 16.5 RATIO (10-20); Calcium,Total 9.6 mg/dL (7.6-11.0); Carbon Dioxide 23.8 mmol/L (21.0-32.0); Chloride 102 mmol/L (98-108); Cholesterol 149 mg/dL (<=200); Globulin 3.4 g/dL (2.2-4.2); Glucose 138 mg/dL (70-99); Low Density Lipoprotein Calc. 95 mg/dL; Potassium 4.2 mmol/L (3.3-5.1); Triglycerides 108 mg/dL; Very Low Density Lipoprotein 22 mg/dL (5-40); cholesterol:hdl ratio screen 4.38
== END | disposition home or self-care (01) ==
LOC: VSLAB 09:05
PROVIDERS: PCP Nurse Practitioner Family; Referring Provider Nurse Practitioner Family; Visit Provider Nurse Practitioner Family
DX: I10 Essential (primary) hypertension (principal); E78.5 Hyperlipidemia, unspecified
CPT/HCPCS: 36415; 80053; 80061; 82043; 84443; 85025